=== PATIENT | male | born 1960 | race Caucasian/White ===

== ENCOUNTER 2017-01-25 15:24 | Inpatient (IN) | payer MEDICAID, OTHER ==
[~2017-01-25] VITALS: Ht 182.9 cm; Wt 83.9 kg
[2017-01-25] VITALS (14 sets, daily range): BP systolic 147–187; BP diastolic 105–152; PULSE 95–105; RESP 15–22; TEMP 98.9; Ht 182.9 cm; Wt 83.9 kg
[~2017-01-25 15:24] MED LIST: AMLO-218 PO; ASPI-781 PO; DOCU-144 PO; FER325 PO; HYDR-3504 PO; LISI-525 PO; METO-429 PO; POLY17PO6 PO
[2017-01-25] MEDS ORDERED: LABETALOL HCL 20MG INJ ONE ×2 (15:36→15:45)
[2017-01-25] MEDS ORDERED: DILTIAZEM 25 MG INJ ONE (15:36)
[2017-01-25] MEDS: LABETALOL HCL 20MG INJ IV PRN (15:40)
[2017-01-25 15:44] LABS: ADD SCAN DIFF NO
[2017-01-25 15:45] LABS: BASOPHILS % 0.3 % (0.0-2.0); EOSINOPHILS # 0.1 10^3/ul (0.0-0.5); EOSINOPHILS % 0.4 % (0.0-7.0); HEMATOCRIT 55.4 % (42.0-52.0); HEMOGLOBIN 19.3 g/dl (14.0-18.0); LYMPHOCYTES # 2.8 10^3/ul (0.8-2.9); LYMPHOCYTES % 22.6 % (15.0-51.0); MEAN CORPUSCULAR HEMOGLOBIN 31.7 pg (29.0-33.0); MEAN CORPUSCULAR HGB CONC 34.8 g/dl (32.0-37.0); MEAN CORPUSCULAR VOLUME 91.1 fl (82.0-101.0); MEAN PLATELET VOLUME 9.2 fl (7.4-10.4); MONOCYTE # 1.3 10^3/ul (0.3-0.9); MONOCYTES % 10.2 % (0.0-11.0); NEUTROPHIL # 8.1 10^3/ul (1.6-7.5); NEUTROPHILS % 66.2 % (39.0-77.0); PLATELET COUNT 230 10^3/UL (140-415); RED BLOOD COUNT 6.08 10^6/ul (4.70-6.10); RED CELL DISTRIBUTION WIDTH 13.3 % (11.5-14.5); WHITE BLOOD COUNT 12.3 10^3/ul (4.8-10.8)
--- NOTE | 2017-01-25 15:50 | ERA ---
ER Documentation Chief Complaint Date/Time DATE: 01/25/17 TIME: 15:45 Chief Complaint Complains of aloc per friend HPI Patient is a 56-year-old male who presents with gradual onset, constant, progressive right-sided weakness for 2 days. He reports that he had weakness to his right leg starting at the foot 2 days ago. He states that yesterday morning this extended to the entire right leg. She reports mild weakness to the right arm on awakening this morning, and not being able to lift his arm to gravity since 11 AM today. He reports mild shortness of breath, no chest pain. He denies palpitations, headache, vomiting. He denies visual disturbance. He denies change in urine output. The patient reports that he has been told he has high blood pressure since he was 19 years old, but has never taken medication for this. He does not take any medications including over-the- counter medications. ROS All systems reviewed and are negative except as per history of present illness. Medications Home Meds Discontinued Scripts Amlodipine Besylate* (Norvasc*) 10 Mg Tablet, 10 MG PO DAILY, #30 TAB Prov:JOANNA DANIELLE 04/27/14 Polyethylene Glycol* (Miralax*) 17 Gm/Pkt Liq, 17 GM PO DAILY for 30 Days Prov:JOANNA DANIELLE 04/27/14 Metoprolol Tartrate* (Lopressor*) 50 Mg Tab, 50 MG PO BID for 30 Days Prov:JOANNA DANIELLE 04/27/14 Lisinopril* (Zestril*) 20 Mg Tab, 20 MG PO BID for 30 Days Prov:JOANNA DANIELLE 04/27/14 Hydrocodone Bit-Acetaminophen (Hydrocodone-APAP) 1 Tab Tab, 1 TAB PO Q4H Y for PAIN, #60 Prov:JOANNA DANIELLE 04/27/14 Ferrous Sulfate* (Ferrous Sulfate*) 325 Mg Tabec, 325 MG PO BID for 30 Days Prov:JOANNA DANIELLE 04/27/14 Docusate Sodium* (Colace*) 100 Mg Cap, 100 MG PO BID, #60 Prov:JOANNA DANIELLE 04/27/14 Aspirin* (Ecotrin*) 325 Mg Tabec, 325 MG PO DAILY for 14 Days Prov:OJANNA DANIELLE 04/27/14 Allergies Allergies: Coded Allergies: No Known Allergy (Unverified , 01/25/17) PMhx/Soc Past medical history: Untreated hypertension Past surgical history: Denies Social history: Drinks alcohol 2-3 times per week, last alcohol 3 days ago. Denies tobacco or illicit drugs. History of Surgery: Yes (L wrist surgery s/p trauma 7 years ago) Anesthesia Reaction: No Hx Neurological Disorder: No Hx Respiratory Disorders: No Hx Cardiac Disorders: No Hx Psychiatric Problems: No Hx Miscellaneous Medical Probl: Yes (HTN, CML s/p blood marrow transplant in 99 , in remission) Hx Alcohol Use: No Hx Substance Use: No Hx Tobacco Use: No FmHx Family History: No coronary disease, No diabetes Physical Exam Vitals Vital Signs Date Time Temp Pulse Resp B/P Pulse Ox O2 Delivery O2 Flow Rate FiO2 01/25/17 18:17 98.9 96 15 180/125 98 Nasal Cannula 2.0 01/25/17 17:52 98.9 92 17 180/131 99 Nasal Cannula 2.0 01/25/17 17:00 98.4 97 16 195/125 99 Nasal Cannula 2.0 01/25/17 16:40 98.2 95 16 227/142 99 Nasal Cannula 2.0 01/25/17 15:45 Nasal Cannula 2 01/25/17 15:40 153 21 227/154 96 Nasal Cannula 2.0 01/25/17 15:34 164 21 263/189 96 Room Air 01/25/17 15:26 98.2 166 20 260/195 96 Physical Exam Const: Alert, no acute distress Head: Atraumatic Eyes: Normal Conjunctiva, no pallor, no icterus ENT: Normal External Ears, Nose and Mouth. Moist mucous membranes Neck: Full range of motion..~ No meningismus. No JVD, no carotid bruit Resp: Clear to auscultation bilaterally Cardio: Regular rhythm, severe tachycardia, no murmur Abd: Soft, non tender, non distended. Skin: No petechiae or rashes Back: No midline or flank tenderness Ext: No cyanosis, or edema Neur: Awake and alert, subtle right facial droop, other cranial nerves intact , 2 out of 5 strength in right upper extremity, 2 out of 5 strength in right lower extremity, sensation intact in 4 extremities. No speech or language deficit. Psych: Normal Mood and Affect Result Diagram: 01/25/17 1534 01/25/17 1534 Results 24 hrs Laboratory Tests Test 01/25/17 15:34 01/25/17 16:01 White Blood Count 12.310^3/ul Red Blood Count 6.0810^6/ul Hemoglobin 19.3g/dl Hematocrit 55.4% Mean Corpuscular Volume 91.1fl Mean Corpuscular Hemoglobin 31.7pg Mean Corpuscular Hemoglobin Concent 34.8g/dl Red Cell Distribution Width 13.3% Platelet Count 54103^3/UL Mean Platelet Volume 9.2fl Neutrophils % 66.2% Lymphocytes % 22.6% Monocytes % 10.2% Eosinophils % 0.4% Basophils % 0.3% Nucleated Red Blood Cells % 0.0/100WBC Neutrophils # 8.110^3/ul Lymphocytes # 2.810^3/ul Monocytes # 1.310^3/ul Eosinophils # 0.110^3/ul Basophils # 0.010^3/ul Nucleated Red Blood Cells # 0.010^3/ul Prothrombin Time 12.0Sec Prothrombin Time Ratio 0.9 INR International Normalized Ratio 0.89 Activated Partial Thromboplast Time 24.2Sec Sodium Level 145mmol/L Potassium Level 3.6mmol/L Chloride Level 101mmol/L Carbon Dioxide Level 23mmol/L Anion Gap 25 Blood Urea Nitrogen 30mg/dl Creatinine 2.03mg/dl Glucose Level 161mg/dl Hemoglobin A1c 5.2% Calcium Level 10.3mg/dl Total Bilirubin 1.7mg/dl Direct Bilirubin 0.00mg/dl Indirect Bilirubin 1.7mg/dl Aspartate Amino Transf (AST/SGOT) 50IU/L Alanine Aminotransferase (ALT/SGPT) 43IU/L Alkaline Phosphatase 108IU/L Troponin I 0.014ng/ml Total Protein 9.0g/dl Albumin 5.5g/dl Globulin 3.50g/dl Albumin/Globulin Ratio 1.57 Bedside Glucose 195mg/dL Current Medications Medications (Trade) Dose Ordered Sig/[place] Route PRN Reason Start Time Stop Time Status Last Admin Dose Admin Labetalol HCl (Labetalol) 20 mg Q20M PRN IV ELEVATED BLOOD PRESSURE 01/25/17 16:00 01/25/17 15:40 Labetalol HCl 20 mg 20 mg ONCE ONCE IV 01/25/17 16:30 01/25/17 16:31 DC 01/25/17 16:11 Nicardipine HCl (Cardene Iv) 200 ml @ 50 mls/hr TITRATE IV 01/25/17 16:30 01/25/17 16:37 Aspirin 162 mg 162 mg ONCE ONCE PO 01/25/17 16:30 01/25/17 16:31 DC 01/25/17 16:32 Sodium Chloride (NS) 1,000 ml @ 200 mls/hr Q5H IV 01/25/17 16:30 01/25/17 18:05 DC 01/25/17 16:32 IV Flush (NS 3 ml) 3 ml PER PROTOCOL IV 01/25/17 18:00 Ondansetron HCl (Zofran Inj) 4 mg Q6H PRN IV NAUSEA AND/OR VOMITING 01/25/17 18:00 Acetaminophen (Tylenol Tab) 650 mg Q6H PRN PO PAIN LEVEL 1-3 OR FEVER 01/25/17 18:00 Acetaminophen/ Hydrocodone Bitart ([place] (5/325)) 1 tab Q6H PRN PO MODERATE PAIN LEVEL 4-6 01/25/17 18:00 Morphine Sulfate (morphine) 2 mg Q4H PRN IV SEVERE PAIN LEVEL 7-10 01/25/17 18:00 Docusate Sodium (Colace) 100 mg Q12H PRN PO CONSTIPATION 01/25/17 18:00 Magnesium Hydroxide (Milk Of Mag) 30 ml DAILY PRN PO CONSTIPATION 01/25/17 18:00 Sodium Biphosphate/ Sodium Phosphate (Fleet Enema) 133 ml DAILY PRN RI CONSTIPATION 01/25/17 18:00 Famotidine (Pepcid Iv) 20 mg HS IV 01/25/17 21:00 Lorazepam 0.5 mg 0.5 mg Q6H PRN IV ANXIETY 01/25/17 18:00 Sodium Chloride (NS) 1,000 ml @ 100 mls/hr Q10H IV 01/25/17 17:45 01/25/17 18:27 Albuterol/ Ipratropium (Duoneb) 3 ml Q4H RESP THERAPY PRN HHN SHORTNESS OF BREATH 01/25/17 18:00 Hydralazine HCl (Apresoline) 10 mg Q6H PRN IV ELEVATED BLOOD PRESSURE 01/25/17 18:00 Nitroglycerin (Nitroglycerin (Sl Tab) 0.4 Mg) 1 tab Q5M PRN SL ANGINA 01/25/17 18:00 Aspirin 325 mg 325 mg DAILY PO 01/26/17 09:00 Nicardipine HCl/ Dextrose (Cardene Iv/D5W) 250 ml @ 50 mls/hr TITRATE IV 01/25/17 18:00 Procedures/MDM EKG read by me: Time 1532, rate 167 Rhythm: Sinus tachycardia Cliff: Left axis deviation Intervals: Normal ST-T waves: T-wave inversion in aVL only Ectopy: No Q-waves: No Impression: Left ventricular hypertrophy, sinus tachycardia EKG read by me: Time 1633, rate 96 Rhythm: Normal sinus Cliff: Left axis deviation Intervals: Normal ST-T waves: ST depression with T-wave inversion in lateral leads Ectopy: No Q-waves: No Impression: LVH with repolarization abnormality versus ischemia MDM: Patient is a 56-year-old male who presents with right sided arm and leg weakness over the last 2 days. The patient did state that his arm did not appear to be significantly weak this morning, but he does report having severe weakness for more than 4-1/2 hours prior to arrival. On ER arrival, the patient was found to have severe hypertension. He also was found to have severe tachycardia. He was given labetalol IV. Head CT did not demonstrate hemorrhage, and showed old lacunar infarcts. The patient was therefore given aspirin, and additional doses of labetalol to control blood pressure. When a second bolus of labetalol was not adequate, he was started on a Cardene drip with a targeted blood pressure reduction of 20-30%. A CTA could not be performed due to the patient's renal insufficiency, which is likely due to long- standing uncontrolled hypertension. An MRI and MRA were ordered, but required a team to be called into the hospital. The patient's symptoms are not suggestive of a large territory infarct, as the patient has pure motor symptoms and no significant speech or language deficits. Patient was not a TPA candidate due to more than 4-1/2 hours of symptoms. The patient will be admitted to the intensive care unit for further stroke workup and blood pressure control. He was noted to have polycythemia. He does not have a reported smoking history, and does not have significant findings of dehydration , so the etiology of this finding is unclear at this time. The patient will be admitted by Dr. Corey. Critical Care Time: 45 minutes Treatments/Evaluations: Close monitoring and treatment of unstable vital signs, cardiorespiratory, and neurologic status, while maintaining tight balance of fluid, respiratory, and cardiac interventions. This time includes discussing the case with the patient. This time does not include all procedures stated elsewhere in this record. This time also includes reviewing old records, labs and radiological studies. This time includes examining and re-examining the patient. Additionally, this time also includes arranging care with admitting physician. Departure Diagnosis: Primary Impression: Acute ischemic stroke Additional Impressions: Hypertensive emergency Renal insufficiency Polycythemia Condition: DONNY Gutierrez MD Jan 25, 2017 15:50
--- NOTE | 2017-01-25 15:59 | RADRPT ---
PROCEDURE: XR Chest. CLINICAL INDICATION: chest pain, CVA TECHNIQUE: Single frontal view of the chest was obtained COMPARISON: 04/24/2014 FINDINGS: The heart and mediastinum are within normal limits. The lungs are clear. There is no pleural effusion or pneumothorax. RPTAT: AA IMPRESSION: No acute disease. .Jeff Tay MD, MD Date Time Electronically viewed and signed by .Jeff Tay MD, MD on 01/25/2017 15:59 .S/
[2017-01-25 16:00] LABS: INR 0.89; PT RATIO 0.9
[2017-01-25 16:01] LABS: PARTIAL THROMBOPLASTIN TIME 24.2 Sec (25.0-35.0)
--- NOTE | 2017-01-25 16:06 | RADRPT ---
PROCEDURE: Noncontrast CT Head. CLINICAL INDICATION: Code stroke. Acute neurologic deficit. TECHNIQUE: Noncontrast CT of the head was obtained. The administered radiation dose was CTDI vol = 45.01 mGy, DLP = 720.23 mGy-cm. One or more of the following dose reduction techniques were used: Au tomated exposure control, Adjustment of the mA and/or kV according to patient size, or Use of iterat devonte reconstruction technique. COMPARISON: There are no similar studies submitted for comparison. FINDINGS: There is mild to moderate generalized cerebral volume loss. There is mild periventricular hypoattenu ation suggesting chronic microvascular ischemic changes. There are minimal vascular calcifications within the intracranial carotid arteries. There are chronic bilateral basal ganglia and left periventricular burris radiata lacunar infarction s. There is a chronic right thalamic lacunar infarction. There is no loss of stevens-white differentiation to suggest acute territorial infarction. There is no acute intracranial hemorrhage or extra-axial fluid collection. There is no mass effect. No midline shift is identified. The orbits are within normal limits. The paranasal sinuses are well aerated. No destructive osseous lesion is identified. IMPRESSION: 1. No loss of stevens-white differentiation to suggest acute territorial infarction. Consider CTA of t he head/neck or noncontrast MRI of the brain as clinically warranted. 2. No acute intracranial hemorrhage or extra-axial fluid collection. 3. Mild generalized cerebral volume loss. 4. Mild chronic microvascular ischemic changes. 5. Chronic bilateral basal ganglia, left burris radiata, and right thalamic lacunar infarctions. Further findings as detailed above. These findings were discussed with Dr. James Hyman at 04:03 p.m. on January 25, 2017. RPTAT: HVF .Zaheer Stevens MD, Date Time Electronically viewed and signed by .Zaheer Stevens MD, on 01/25/2017 16:06 .F/
[2017-01-25] MEDS ORDERED: LABETALOL HCL 20MG INJ IV ONE (16:30)
[2017-01-25] MEDS ORDERED: SOD CHLORIDE 0.9% 1,000 ML IV SCH (16:30)
[2017-01-25] MEDS ORDERED: ASPIRIN 81 MG TAB PO ONE (16:30)
[2017-01-25 16:32] LABS: ALBUMIN 5.5 g/dl (3.3-4.9); ALBUMIN/GLOBULIN RATIO 1.57; BILIRUBIN,INDIRECT 1.7 mg/dl (0-1.1); BILIRUBIN,TOTAL 1.7 mg/dl (0.2-1.3); CALCIUM 10.3 mg/dl (8.4-10.2); CREATININE 2.03 mg/dl (0.61-1.24); POTASSIUM 3.6 mmol/L (3.5-5.1)
[2017-01-25] MEDS: niCARdipine-D5W 0.1MG/ML DRIP 200 ML IV SCH ×2 (16:37→22:18)
[2017-01-25 16:44] LABS: TROPONIN-I 0.014 ng/ml (0.00-0.12)
[2017-01-25] MEDS ORDERED: ONDANSETRON 4 MG INJ IV PRN (18:00)
[2017-01-25] MEDS ORDERED: ACETAMINOPHEN 325 MG TAB PO PRN (18:00)
[2017-01-25] MEDS ORDERED: NITROGLYCERIN (SL) 0.4 MG TAB SL PRN (18:00)
[2017-01-25] MEDS ORDERED: HYDROCODONE/APAP (5/325) TAB PO PRN (18:00)
[2017-01-25] MEDS ORDERED: DOCUSATE SODIUM 100 MG CAP PO PRN (18:00)
[2017-01-25] MEDS ORDERED: LORAZEPAM 2 MG INJ IV PRN (18:00)
[2017-01-25] MEDS ORDERED: MAGNESIUM HYDROXIDE 30ML CUP PO PRN (18:00)
[2017-01-25] MEDS ORDERED: morphine 2 MG INJ IV PRN (18:00)
[2017-01-25] MEDS ORDERED: ALBUTEROL/IPRATROPIUM (NEB) 3 ML AMP HHN PRN (18:00)
[2017-01-25] MEDS ORDERED: hydrALAzine 20 MG INJ IV PRN (18:00)
[2017-01-25] MEDS ORDERED: NACL 0.9% 3 ML SYG IV SCH (18:00)
[2017-01-25] MEDS ORDERED: NA PHOSPHATE/BIPHOS 133 ML ENEMA PR PRN (18:00)
[2017-01-25] MEDS: SOD CHLORIDE 0.9% 1,000 ML IV SCH ×2 (18:27→23:42)
[2017-01-25 19:03] LABS: INR 0.91; PROTIME 12.2 Sec (12.2-14.2)
[2017-01-25 19:04] LABS: PARTIAL THROMBOPLASTIN TIME 24.7 Sec (25.0-35.0)
[2017-01-25 19:20] LABS: TROPONIN-I 0.022 ng/ml (0.00-0.12)
[2017-01-25 19:28] LABS: CK-MB 6.98 ng/ml (0.0-2.4)
--- NOTE | 2017-01-25 20:01 | RADRPT ---
PROCEDURE: MR Angiogram of the brain. CLINICAL INDICATION: Right arm weakness, stroke TECHNIQUE: 3D [id number] MR angiogram was performed without contrast. Multiplanar and 3-D rec onstructions were performed. COMPARISON: No prior studies are available for comparison. FINDINGS: The right petrous internal carotid artery is normally patent. The right cavernous, and supraclinoid internal carotid artery segments are unremarkable, without stenosis or occlusion. The right anteri or and middle cerebral arteries appear normal. The left petrous internal carotid artery is normally patent. The left cavernous, and supraclinoid i nternal carotid artery segments are unremarkable, without focal stenosis or occlusion. The left ant erior and middle cerebral arteries appear normal. The anterior communicating artery is normally patent. Bilateral posterior communicating arteries ar e visualized and unremarkable. There are no anterior circulation aneurysms or vascular malformation s. The bilateral vertebral arteries appear normally patent. The basilar artery appears normal, without stenosis. . The posterior cerebral arteries appear normally patent. The superior cerebellar arter ies are unremarkable. There are no posterior circulation aneurysms or vascular malformations. IMPRESSION: 1. Unremarkable MR angiogram of the brain. No significant stenosis or occlusion is identified. RPTAT: HBST .Jaime Fuentes MD, MD Date Time Electronically viewed and signed by .Jaime Fuentes MD, on 01/25/2017 20:01 .T/
--- NOTE | 2017-01-25 20:05 | HP ---
DATE OF ADMISSION: 01/25/2017 CHIEF COMPLAINT: Altered level of consciousness. HISTORY OF PRESENT ILLNESS: A 56-year-old male with past medical history of essential hypertension, looks like uncontrolled, noncompliant with medicines since age 19, who has been getting progressive right-sided weakness over the last 2 days. He says that he noticed some weakness in his right leg starting about 2 days ago and he noticed that it extended more throughout his right entire leg and a lso noticed weakness in his right upper extremity as well. Since early today, he had some mild shor tness breath symptoms, but no palpitations, no chest pain, no fevers or chills, no nausea, vomiting, no upper or lower GI bleeding, no vision changes, no dysuria. When he came into the ER today, he h ad significantly elevated blood pressure. Systolic blood pressure was in the 260 range and diastoli c was in the 195 range and he was given labetalol and started on a Cardene drip. He has also elevat ed creatinine around the 2.0 range. We do not know his baseline. His white count was also elevated at 12. Head CT showed just old lacunar infarcts. That was done. MRI is pending. PAST MEDICAL HISTORY: CML, status post bone marrow transplant in 1998. Past medical history as sta mary above. ALLERGIES: NO KNOWN DRUG ALLERGIES. HOME MEDICATIONS: Unknown, although the patient says he is not taking any blood pressure medicines presently. PAST SURGICAL HISTORY: He has had wrist surgery in the past. SOCIAL HISTORY: He drinks alcohol about 3 times a week. He has been doing that for many, many year s. Denies any IV drug abuse or smoking history. FAMILY HISTORY: Noncontributory. PHYSICAL EXAMINATION: VITAL SIGNS: Today, T-max 98.9, pulse is 166 to 92, respirations 21 to 15, blood pressure again is 180 to 260 systolic over 195 to 125 diastolic, satting at 98% on 2 liters nasal cannula. Again, pre sently he is on Cardene drip and the systolic is 180/125. The MAP is around 140. GENERAL: The patient is lying in bed, answering questions appropriately, slightly slurred speech no mary, but otherwise alert. HEENT: Pupils equal, round, react to light. Extraocular muscles are intact. There is a subtle rig ht facial droop. NECK: Supple. No thyromegaly. LUNGS: Clear to auscultation bilaterally. CARDIOVASCULAR: S1, S2 heard. No rubs or gallops. ABDOMEN: Soft, nontender, nondistended. Normal bowel sounds. No rebound or guarding. MUSCULOSKELETAL: No lower extremity edema bilaterally. NEUROLOGIC: Again, patient is awake and alert. There is a subtle right facial droop noted. He has about 2/5 strength in the right upper extremity, 2/5 strength in right lower extremity, 5/5 strengt h left upper and left lower extremities as well. Gait was not assessed. The rest of the cranial ne rves appear to be intact. LABORATORIES: WBC 12.3, hemoglobin 19.3, hematocrit 55.4, platelets 230. Sodium 145, potassium 3.6 , chloride 101, CO2 of 23, BUN 30, creatinine 2.03, glucose 161. The coags appear to be normal. Th e chest x-ray showed no acute disease. A head CT showed no loss of stevens-white differentiation to martinez ggest any acute territorial infarct. No acute intracranial hemorrhage or extraaxial fluid collectio n. There is mild generalized cerebral volume loss, ____ chronic microvascular ischemic changes, chr onic bilateral basal ganglia, and left burris radiata and right thalamic lacunar infarcts, again chr onic. ASSESSMENT AND PLAN: A 56-year-old male coming in with signs of right-sided weakness, getting progr essively worse over the last 48 hours, and some significantly elevated blood pressure, possible hype rtensive emergency and renal insufficiency, rule out stroke. 1. Right-sided weakness with altered level of consciousness. Again, patient is more alert now. Sy mptoms could be related to transient ischemic attack versus stroke. Suspect possible stroke. Head CT was negative. Will follow up MRI and MRA of the brain. Do neuro checks. Check TSH, A1c, and li pid panel. Get PT, OT, and speech evaluations. Put him on high dose aspirin. Check a 2D echocardi ogram and consider carotid Doppler studies as well. We will get a neurology consult as well. 2. Hypertensive emergency. Although the patient does not have any visual changes, there appear to be no signs of any end organ damage, but his systolic blood pressure was severely high. We are tho g to try to control his blood pressure with Cardene drip. We do not want to lower it any more than 30% in the first 24 hours, so will try to keep the systolic greater than 200 or the MAP around 140 f or now. 3. Gastrointestinal prophylaxis. We will put him on H2 dorothea. 4. Deep venous thrombosis prophylaxis. He will be on sequential compression devices as well. Dictated By: SIXTO DIAZ Conf#: [id number] DID#: [id number]
--- NOTE | 2017-01-25 20:09 | RADRPT ---
PROCEDURE: MR Brain without contrast. CLINICAL INDICATION: Focal neurologic deficit, stroke. Right arm weakness TECHNIQUE: An MRI of the brain was performed utilizing the following sequences: Axial T1, axial T 2, axial FLAIR, coronal gradient echo, sagittal T1 FLAIR, diffusion weighted imaging, and ADC map. COMPARISON: No prior studies are available for comparison. FINDINGS: There is moderate diffuse cerebral volume loss. The ventricles are symmetric and normal in configur ation. There is no mass, mass effect, or midline shift. There is no abnormal intra-axial or extra- axial fluid collection. There is no intracranial hemorrhage. There is left thalamic diffusion res triction, consistent with acute infarct. There are old infarcts in the left basal ganglia, left cor pus callosum, right anastacia, and right frontal periventricular white matter. There is an old right cere bellar lacunar infarct. There are scattered areas of high T2 / FLAIR signal in the periventricular white matter, consistent with moderate small vessel ischemic changes. The sella and suprasellar cistern appear within normal limits. The brainstem and posterior fossa ar e normal in configuration. The orbital soft tissue contents are unremarkable. Paranasal sinuses are clear. IMPRESSION: 1. Moderate diffuse cerebral volume loss. Moderate small vessel ischemic changes. 2. Acute left thalamic infarct. 3. Old infarcts in the left basal ganglia, corpus callosum, right anastacia, right cerebellum, and right frontal periventricular white matter. 4. No mass effect or acute intracranial bleed. RPTAT: HBST .Jaime Fuentes MD, Date Time Electronically viewed and signed by .Jaime Fuentes MD, MD on 01/25/2017 20:09 .T/
--- NOTE | 2017-01-25 20:19 | RADRPT ---
PROCEDURE: MRA Neck. CLINICAL INDICATION: Weakness, right arm, stroke TECHNIQUE: 2D TOF SPGR and contrast enhanced TRICKS subtraction MR Angiography of the neck was per formed. 20 ml of intravenous Magnevist was administered. 3-D re-formations were performed. COMPARISON: No prior studies are available for comparison. FINDINGS: The examination is limited by noncontrast technique The right common carotid artery is normally patent. The carotid bulb appears normal. The right int ernal carotid artery appears unremarkable, without focal stenosis or dilatation. The left common carotid artery is normally patent. There is possible moderate stenosis of the proxi mal left internal carotid artery. The left internal carotid artery appears unremarkable, without foc al stenosis or dilatation. The bilateral vertebral arteries appear to be normally patent, with poor visualization of horizontal segments due to 2D [id number] technique.. The vertebral artery origins appear within normal li mits.. IMPRESSION: 1. Limited examination due to noncontrast technique. There could be a moderate stenosis of the prox imal left internal carotid artery, versus artifact. Ultrasound correlation is suggested. 2. Otherwise normal appearing patency through the visualized cervical carotid and vertebral arteria l vasculature. RPTAT: HBST .Jaime Fuentes MD, MD Date Time Electronically viewed and signed by .Jaime Fuentes MD, on 01/25/2017 20:19 .T/
--- NOTE | 2017-01-25 20:27 | RADRPT ---
PROCEDURE: US Carotids. CLINICAL INDICATION: bruit , dizziness TECHNIQUE: Multiple sonographic of the carotid bifurcation region and vertebral arteries were obta ined utilizing stevens scale, duplex and color-flow imaging. The images were reviewed on a PACS worksta tion. COMPARISON: No prior studies are available for comparison. FINDINGS: Evaluation of the right carotid bifurcation region reveals mild calcific atherosclerotic disease. Evaluation of the left carotid bifurcation region reveals mild calcific atherosclerotic disease. . There is a 34% stenosis in the left carotid bulb. There is antegrade flow within the vertebral arteries bilaterally. RIGHT CAROTID MEASUREMENTS: Common Carotid Bdysow88 (cm/sec) Internal Carotid Artery - isqygztf03.5 (cm/sec) Internal Carotid Artery - mid55.5 (cm/sec) Internal Carotid Artery - .9 (cm/sec) Internal Carotid/Common Carotid0.87 LEFT CAROTID MEASUREMENTS: Common Carotid Tfhoyw61.9 (cm/sec) Internal Carotid Artery - rzmsubjc59.5 (cm/sec) Internal Carotid Artery - mid34.5 (cm/sec) Internal Carotid Artery - vlktpo62.7 (cm/sec) Internal Carotid/Common Carotid0.71 RPTAT: AA IMPRESSION: No evidence for hemodynamically significant stenosis in the bilateral internal carotid arteries - va lidated velocity measurements with angiographic measurements, velocity criteria are extrapolated fro m diameter data as defined by the Society of Radiologists in Ultrasound Consensus Conference Radiolo gy 2003; 229;340-346. This study does indirectly reference the measurement of the distal ICA diamet er as the denominator for stenosis measurement. Normal antegrade flow in the vertebral arteries bilaterally. .Jeff Tay MD, Date Time Electronically viewed and signed by .Jeff Tay MD, MD on 01/25/2017 20:27 .S/
[2017-01-25] MEDS: FAMOTIDINE 20 MG INJ IV SCH (21:44)
[2017-01-26] VITALS (86 sets, daily range): BP systolic 99–211; BP diastolic 65–168; PULSE 81–118; RESP 11–35
[2017-01-26 00:23] LABS: TROPONIN-I 0.022 ng/ml (0.00-0.12)
[2017-01-26 00:24] LABS: CK-MB 6.54 ng/ml (0.0-2.4)
[2017-01-26 05:23] LABS: ADD UMIC YES; UR BILIRUBIN (Dip) NEGATIVE (NEGATIVE); UR BLOOD (Dip) TRACE (NEGATIVE); UR CLARITY CLEAR (CLEAR); UR COLOR YELLOW (YELLOW); UR GLUCOSE (Dip) NEGATIVE (NEGATIVE); UR KETONES (Dip) TRACE (NEGATIVE); UR LEUKOCYTE ESTERASE (Dip) NEGATIVE (NEGATIVE); UR NITRITE (Dip) NEGATIVE (NEGATIVE); UR TOTAL PROTEIN (Dip) 1+ (NEGATIVE); UR UROBILINOGEN (Dip) 0.2 E.U./dL (0.1-1.0)
[2017-01-26 05:31] LABS: URINE RBCS 0-2 /HPF (0)
[2017-01-26 05:32] LABS: UR SQUAMOUS EPITHELIAL CELL MODERATE
[2017-01-26 05:33] LABS: UR BACTERIA OCCASIONAL
[2017-01-26 05:39] LABS: CANNABINOIDS Positive (NEGATIVE)
[2017-01-26 05:58] LABS: BARBITURATES Negative (NEGATIVE); BENZODIAZEPINES Negative (NEGATIVE); COCAINE Negative (NEGATIVE); OPIATES Negative (NEGATIVE)
[2017-01-26] MEDS: niCARdipine-D5W 0.1MG/ML DRIP 200 ML IV SCH (06:27)
[2017-01-26 06:42] LABS: ADD SCAN DIFF NO
[2017-01-26 06:58] LABS: BASOPHIL # 0.1 10^3/ul (0.0-0.1); BASOPHILS % 0.8 % (0.0-2.0); EOSINOPHILS # 0.1 10^3/ul (0.0-0.5); EOSINOPHILS % 1.5 % (0.0-7.0); HEMATOCRIT 49.6 % (42.0-52.0); HEMOGLOBIN 17.1 g/dl (14.0-18.0); LYMPHOCYTES # 2.4 10^3/ul (0.8-2.9); LYMPHOCYTES % 25.8 % (15.0-51.0); MEAN CORPUSCULAR HEMOGLOBIN 31.3 pg (29.0-33.0); MEAN CORPUSCULAR HGB CONC 34.5 g/dl (32.0-37.0); MEAN CORPUSCULAR VOLUME 90.7 fl (82.0-101.0); MEAN PLATELET VOLUME 9.4 fl (7.4-10.4); MONOCYTE # 1.1 10^3/ul (0.3-0.9); MONOCYTES % 11.9 % (0.0-11.0); NEUTROPHIL # 5.6 10^3/ul (1.6-7.5); NEUTROPHILS % 59.7 % (39.0-77.0); PLATELET COUNT 168 10^3/UL (140-415); RED BLOOD COUNT 5.47 10^6/ul (4.70-6.10); RED CELL DISTRIBUTION WIDTH 13.2 % (11.5-14.5); WHITE BLOOD COUNT 9.3 10^3/ul (4.8-10.8)
[2017-01-26 07:23] LABS: CHOL/HDL RATIO 5.7 RATIO
[2017-01-26 07:30] LABS: CALCIUM 9.7 mg/dl (8.4-10.2); CREATININE 1.21 mg/dl (0.61-1.24); MAGNESIUM 2.2 mg/dl (1.7-2.5); PHOSPHORUS 3.4 mg/dl (2.5-4.9); POTASSIUM 3.6 mmol/L (3.5-5.1)
[2017-01-26 07:47] LABS: THYROID STIMULATING HORMONE 0.924 MIU/L (0.465-4.680)
[2017-01-26] MEDS: ASPIRIN (EC) 325 MG TAB PO SCH (08:54)
[2017-01-26] MEDS ORDERED: niCARdipine-D5W 0.1MG/ML DRIP 200 ML IV SCH (11:30)
[2017-01-26] MEDS: SOD CHLORIDE 0.9% 1,000 ML IV SCH ×2 (11:33→21:37)
--- NOTE | 2017-01-26 12:08 | CONS ---
Date/Time of Note Date/Time of Note DATE: 01/26/17 TIME: 12:01 Assessment/Plan Assessment/Plan Chief Complaint/Hosp Course 56 year old male with history of uncontrolled hypertension previous smoker admitted with acute left thalamic infarct. Recommendations: titrate cardene drip for goal SBP<180 will eventually require tighter control and eventual goal of SBP<130/80 for lacunar infarctions continue aspirin HBA1C 5.1% at target LDL: 160 will require high dose statin lipitor 80 mg qhs ECHO with bubble study PT/OT/Speech will follow Problems: Consultation Date/Type/Reason Admit Date/Time Jan 25, 2017 at 18:02 Date of Consultation: Jan 26, 2017 Type of Consultation: Neurology Reason for Consultation evaluation for CVA Referring Provider: SIXTO SHAH Hx of Present Illness 56 year old male with essential hypertension non-compliant with medications since age 19 prior hx of smoking presenting with progressively worsening right sided weakness for the past 2 days. He initially noted symptoms on Thursday beginning in right leg and progressed to involve right arm. On admission to the ER SBP elevated 260 range started on cardene drip. CTH showed old lacunar infarcts. MRI Brain shows multiple old lacunar infarcts, left basal ganglia, corpus callosum, anastacia right cerebellum with acute left lateral thalamic infarct. He remains in ICU for BP management. He was evaluated by speech and put on mechanical soft diet. right sided weakness face arm leg Social History Smoking Status: Never smoker Exam/Review of Systems Vital Signs Vitals Vital Signs Date Time Temp Pulse Resp B/P Pulse Ox O2 Delivery O2 Flow Rate FiO2 01/26/17 08:00 103 01/26/17 08:00 98.0 14 193/119 99 Nasal Cannula 2.0 Intake and Output 01/25/17 01/25/17 01/26/17 15:00 23:00 07:00 Intake Total 1620 ml 935 ml Output Total 425 ml Balance 1620 ml 510 ml Exam awake and alert oriented to self hospital date appears disheveled, mood affect intact follows commands well no aphasia or neglect CN: ROSSI, VFF EOMI no nystagmus v1-3 intact right lower facial droop palate upgoing uvula midline scm/trap intact tongue midline Motor: right arm 0/5 flaccid paralysis, right leg can briefly lift anti-gravity few seconds drifts to bed Sensory intact to right side Coordination unable to perform on right Results Result Diagram: 01/26/17 0522 01/26/17 0522 Results 24 hrs Laboratory Tests Test 01/25/17 15:34 01/25/17 16:01 01/25/17 18:40 01/25/17 23:30 White Blood Count 12.3 H Red Blood Count 6.08 Hemoglobin 19.3 H Hematocrit 55.4 H Mean Corpuscular Volume 91.1 Mean Corpuscular Hemoglobin 31.7 Mean Corpuscular Hemoglobin Concent 34.8 Red Cell Distribution Width 13.3 Platelet Count 230 Mean Platelet Volume 9.2 Neutrophils % 66.2 Lymphocytes % 22.6 Monocytes % 10.2 Eosinophils % 0.4 Basophils % 0.3 Nucleated Red Blood Cells % 0.0 Neutrophils # 8.1 H Lymphocytes # 2.8 Monocytes # 1.3 H Eosinophils # 0.1 Basophils # 0.0 Nucleated Red Blood Cells # 0.0 Prothrombin Time 12.0 L 12.2 Prothrombin Time Ratio 0.9 1.0 INR International Normalized Ratio 0.89 0.91 Activated Partial Thromboplast Time 24.2 L 24.7 L Sodium Level 145 H Potassium Level 3.6 Chloride Level 101 Carbon Dioxide Level 23 Anion Gap 25 H Blood Urea Nitrogen 30 H Creatinine 2.03 H Glucose Level 161 Hemoglobin A1c 5.2 Calcium Level 10.3 H Total Bilirubin 1.7 H Direct Bilirubin 0.00 Indirect Bilirubin 1.7 H Aspartate Amino Transf (AST/SGOT) 50 H Alanine Aminotransferase (ALT/SGPT) 43 Alkaline Phosphatase 108 Troponin I 0.014 0.022 0.022 Total Protein 9.0 H Albumin 5.5 H Globulin 3.50 H Albumin/Globulin Ratio 1.57 Bedside Glucose 195 Creatine Kinase 300 H 296 H Creatine Kinase Index 2.3 2.2 Creatinine Kinase MB (Mass) 6.98 H 6.54 H Free Thyroxine 1.07 Test 01/26/17 03:00 01/26/17 05:22 Urine Color YELLOW Urine Clarity CLEAR Urine pH 5.5 Urine Specific [place] >=1.030 H Urine Ketones TRACE Urine Nitrite NEGATIVE Urine Bilirubin NEGATIVE Urine Urobilinogen 0.2 E.U./dL Urine Leukocyte Esterase NEGATIVE Urine Microscopic RBC 0-2 Urine Microscopic WBC 2-5 Urine Squamous Epithelial Cells MODERATE Urine Bacteria OCCASIONAL Urine Hyaline Casts FEW Urine Hemoglobin TRACE Urine Glucose NEGATIVE Urine Total Protein 1+ H Urine Opiates Screen Negative Urine Barbiturates Negative Urine Amphetamines Screen Negative Urine Benzodiazepines Screen Negative Urine Cocaine Screen Negative Urine Cannabinoids Positive White Blood Count 9.3 # Red Blood Count 5.47 Hemoglobin 17.1 Hematocrit 49.6 Mean Corpuscular Volume 90.7 Mean Corpuscular Hemoglobin 31.3 Mean Corpuscular Hemoglobin Concent 34.5 Red Cell Distribution Width 13.2 Platelet Count 168 # Mean Platelet Volume 9.4 Neutrophils % 59.7 Lymphocytes % 25.8 Monocytes % 11.9 H Eosinophils % 1.5 Basophils % 0.8 Nucleated Red Blood Cells % 0.0 Neutrophils # 5.6 Lymphocytes # 2.4 Monocytes # 1.1 H Eosinophils # 0.1 Basophils # 0.1 Nucleated Red Blood Cells # 0.0 Sodium Level 147 H Potassium Level 3.6 Chloride Level 110 Carbon Dioxide Level 23 Anion Gap 18 #H Blood Urea Nitrogen 28 H Creatinine 1.21 Glucose Level 94 # Hemoglobin A1c 5.1 Calcium Level 9.7 Phosphorus Level 3.4 Magnesium Level 2.2 Triglycerides Level 152 H Cholesterol Level 230 H LDL Cholesterol, Calculated 160 HDL Cholesterol 40 Cholesterol/HDL Ratio 5.7 Thyroid Stimulating Hormone (TSH) 0.924 Medications Medications Current Medications Labetalol HCl (Labetalol) 20 mg Q20M PRN IV ELEVATED BLOOD PRESSURE Last administered on 01/25/17t 15:40; Admin Dose 20 MG; Start 01/25/17 at 16:00 Ondansetron HCl (Zofran Inj) 4 mg Q6H PRN IV NAUSEA AND/OR VOMITING; Start 07/03 at 18:00 Acetaminophen (Tylenol Tab) 650 mg Q6H PRN PO PAIN LEVEL 1-3 OR FEVER; Start at 18:00 Acetaminophen/ Hydrocodone Bitart ([place] (5/325)) 1 tab Q6H PRN PO MODERATE PAIN LEVEL 4-6; Start 01/25/17 at 18:00 Morphine Sulfate (morphine) 2 mg Q4H PRN IV SEVERE PAIN LEVEL 7-10; Start 01/25 at 18:00 Docusate Sodium (Colace) 100 mg Q12H PRN PO CONSTIPATION; Start 01/25/17 at 18: 00 Magnesium Hydroxide (Milk Of Mag) 30 ml DAILY PRN PO CONSTIPATION; Start at 18:00 Sodium Biphosphate/ Sodium Phosphate (Fleet Enema) 133 ml DAILY PRN [place] CONSTIPATION; Start 01/25/17 at 18:00 Famotidine (Pepcid Iv) 20 mg HS IV Last administered on 01/25/17 21:44; Admin Dose 20 MG; Start 01/25/17 at 21:00 Lorazepam 0.5 mg 0.5 mg Q6H PRN IV ANXIETY; Start 01/25/17 at 18:00 Sodium Chloride (NS) 1,000 ml @ 100 mls/hr Q10H IV Last administered on 11:33; Admin Dose 100 MLS/HR; Start 01/25/17 at 17:45 Hydralazine HCl (Apresoline) 10 mg Q6H PRN IV ELEVATED BLOOD PRESSURE; Start at 18:00 Nitroglycerin (Nitroglycerin (Sl Tab) 0.4 Mg) 1 tab Q5M PRN SL ANGINA; Start at 18:00 Aspirin (Ecotrin) 325 mg DAILY PO Last administered on 01/26/17 08:54; Admin Dose 325 MG; Start 01/26/17 at 09:00 Atorvastatin Calcium 80 mg 80 mg HS PO ; Start 01/26/17 at 21:00 Nicardipine HCl/ Dextrose (Cardene Iv/D5W) 250 ml @ 50 mls/hr TITRATE IV ; Start 01/26/17 at 11:30 XIOMARA CLEMENTE MD Jan 26, 2017 12:08
--- NOTE | 2017-01-26 15:32 | PN ---
Date/Time of Note Date/Time of Note DATE: 01/26/17 TIME: 15:25 Assessment/Plan VTE Prophylaxis VTE Prophylaxis Intervention: SCD's Lines/Catheters [facility] Peripheral IV Urinary Cath still in place: No Assessment/Plan Chief Complaint/Hosp Course ASSESSMENT AND PLAN: 1. Acute CVA MRI of the brain demonstrated acute left thalamic infarct. Continue aspirin and statin Continue to monitor patient's blood pressure and treat accordingly as per CVA protocol Obtain transesophageal 2D echocardiogram with bubble study 2. Hypertensive emergency. Continue Cardene drip to keep blood pressure below 170 and above 140. Start the patient on low dose of Coreg and continue to observe 3. Dyslipidemia. Continue statin 4. Gastrointestinal prophylaxis. We will put him on H2 dorothea. 5. Deep venous thrombosis prophylaxis. He will be on sequential compression devices as well. Problems: Subjective 24 Hr Interval Summary Free Text/Dictation Patient denies of any chest pain or shortness of breath No nausea vomiting diarrhea Able to tolerate oral intake Complains of having bilateral upper extremity weakness Exam/Review of Systems Vital Signs Vitals Vital Signs Date Time Temp Pulse Resp B/P Pulse Ox O2 Delivery O2 Flow Rate FiO2 01/26/17 12:00 99.1 93 16 186/108 97 Nasal Cannula 2.0 Intake and Output 01/25/17 01/25/17 01/26/17 15:00 23:00 07:00 Intake Total 1620 ml 935 ml Output Total 425 ml Balance 1620 ml 510 ml Exam General: The patient is well-developed, Not in acute distress. HEENT: Atraumatic, normocephalic. The pupils are equal and round . Neck: Supple with full range of motion. Chest: Normal expansion of the thorax during inspiration Lungs: Clear to auscultation bilaterally Heart: Normal S1-S2, Regular rhythm and rate. Abdomen: Soft , nontender, nondistended , bowel sounds are present. Extremities: 3/5 strength bilateral upper extremity, no edema no cyanosis Neurologic: The patient is awake, alert Results Result Diagram: 01/26/1752101/26/17 05 Results 24 hrs Laboratory Tests Test 01/25/17 15:34 01/25/17 16:01 01/25/17 18:40 01/25/17 23:30 White Blood Count 12.3 H Red Blood Count 6.08 Hemoglobin 19.3 H Hematocrit 55.4 H Mean Corpuscular Volume 91.1 Mean Corpuscular Hemoglobin 31.7 Mean Corpuscular Hemoglobin Concent 34.8 Red Cell Distribution Width 13.3 Platelet Count 230 Mean Platelet Volume 9.2 Neutrophils % 66.2 Lymphocytes % 22.6 Monocytes % 10.2 Eosinophils % 0.4 Basophils % 0.3 Nucleated Red Blood Cells % 0.0 Neutrophils # 8.1 H Lymphocytes # 2.8 Monocytes # 1.3 H Eosinophils # 0.1 Basophils # 0.0 Nucleated Red Blood Cells # 0.0 Prothrombin Time 12.0 L 12.2 Prothrombin Time Ratio 0.9 1.0 INR International Normalized Ratio 0.89 0.91 Activated Partial Thromboplast Time 24.2 L 24.7 L Sodium Level 145 H Potassium Level 3.6 Chloride Level 101 Carbon Dioxide Level 23 Anion Gap 25 H Blood Urea Nitrogen 30 H Creatinine 2.03 H Glucose Level 161 Hemoglobin A1c 5.2 Calcium Level 10.3 H Total Bilirubin 1.7 H Direct Bilirubin 0.00 Indirect Bilirubin 1.7 H Aspartate Amino Transf (AST/SGOT) 50 H Alanine Aminotransferase (ALT/SGPT) 43 Alkaline Phosphatase 108 Troponin I 0.014 0.022 0.022 Total Protein 9.0 H Albumin 5.5 H Globulin 3.50 H Albumin/Globulin Ratio 1.57 Bedside Glucose 195 Creatine Kinase 300 H 296 H Creatine Kinase Index 2.3 2.2 Creatinine Kinase MB (Mass) 6.98 H 6.54 H Free Thyroxine 1.07 Test 01/26/17 03:00 01/26/17 05:22 Urine Color YELLOW Urine Clarity CLEAR Urine pH 5.5 Urine Specific [place] >=1.030 H Urine Ketones TRACE Urine Nitrite NEGATIVE Urine Bilirubin NEGATIVE Urine Urobilinogen 0.2 E.U./dL Urine Leukocyte Esterase NEGATIVE Urine Microscopic RBC 0-2 Urine Microscopic WBC 2-5 Urine Squamous Epithelial Cells MODERATE Urine Bacteria OCCASIONAL Urine Hyaline Casts FEW Urine Hemoglobin TRACE Urine Glucose NEGATIVE Urine Total Protein 1+ H Urine Opiates Screen Negative Urine Barbiturates Negative Urine Amphetamines Screen Negative Urine Benzodiazepines Screen Negative Urine Cocaine Screen Negative Urine Cannabinoids Positive White Blood Count 9.3 # Red Blood Count 5.47 Hemoglobin 17.1 Hematocrit 49.6 Mean Corpuscular Volume 90.7 Mean Corpuscular Hemoglobin 31.3 Mean Corpuscular Hemoglobin Concent 34.5 Red Cell Distribution Width 13.2 Platelet Count 168 # Mean Platelet Volume 9.4 Neutrophils % 59.7 Lymphocytes % 25.8 Monocytes % 11.9 H Eosinophils % 1.5 Basophils % 0.8 Nucleated Red Blood Cells % 0.0 Neutrophils # 5.6 Lymphocytes # 2.4 Monocytes # 1.1 H Eosinophils # 0.1 Basophils # 0.1 Nucleated Red Blood Cells # 0.0 Sodium Level 147 H Potassium Level 3.6 Chloride Level 110 Carbon Dioxide Level 23 Anion Gap 18 #H Blood Urea Nitrogen 28 H Creatinine 1.21 Glucose Level 94 # Hemoglobin A1c 5.1 Calcium Level 9.7 Phosphorus Level 3.4 Magnesium Level 2.2 Triglycerides Level 152 H Cholesterol Level 230 H LDL Cholesterol, Calculated 160 HDL Cholesterol 40 Cholesterol/HDL Ratio 5.7 Thyroid Stimulating Hormone (TSH) 0.924 Medications Medications Current Medications Labetalol HCl (Labetalol) 20 mg Q20M PRN IV ELEVATED BLOOD PRESSURE Last administered on 01/25/17 15:40; Admin Dose 20 MG; Start 01/25/17 at 16:00 Ondansetron HCl (Zofran Inj) 4 mg Q6H PRN IV NAUSEA AND/OR VOMITING; Start 07/03 at 18:00 Acetaminophen (Tylenol Tab) 650 mg Q6H PRN PO PAIN LEVEL 1-3 OR FEVER; Start at 18:00 Acetaminophen/ Hydrocodone Bitart ([place] (5/325)) 1 tab Q6H PRN PO MODERATE PAIN LEVEL 4-6; Start 01/25/17 at 18:00 Morphine Sulfate (morphine) 2 mg Q4H PRN IV SEVERE PAIN LEVEL 7-10; Start 01/25 at 18:00 Docusate Sodium (Colace) 100 mg Q12H PRN PO CONSTIPATION; Start 01/25/17 at 18: 00 Magnesium Hydroxide (Milk Of Mag) 30 ml DAILY PRN PO CONSTIPATION; Start at 18:00 Sodium Biphosphate/ Sodium Phosphate (Fleet Enema) 133 ml DAILY PRN [place] CONSTIPATION; Start 01/25/17 at 18:00 Famotidine (Pepcid Iv) 20 mg HS IV Last administered on 01/25/17 21:44; Admin Dose 20 MG; Start 01/25/17 at 21:00 Lorazepam 0.5 mg 0.5 mg Q6H PRN IV ANXIETY; Start 01/25/17 at 18:00 Sodium Chloride (NS) 1,000 ml @ 100 mls/hr Q10H IV Last administered on 11:33; Admin Dose 100 MLS/HR; Start 01/25/17 at 17:45 Hydralazine HCl (Apresoline) 10 mg Q6H PRN IV ELEVATED BLOOD PRESSURE; Start at 18:00 Nitroglycerin (Nitroglycerin (Sl Tab) 0.4 Mg) 1 tab Q5M PRN SL ANGINA; Start at 18:00 Aspirin (Ecotrin) 325 mg DAILY PO Last administered on 01/26/17 08:54; Admin Dose 325 MG; Start 01/26/17 at 09:00 Atorvastatin Calcium 80 mg 80 mg HS PO ; Start 01/26/17 at 21:00 Nicardipine HCl/ Dextrose (Cardene Iv/D5W) 250 ml @ 50 mls/hr TITRATE IV Last administered on 01/26/17 13:56; Admin Dose 70 MLS/HR; Start 01/26/17 at 11:30 Carvedilol (Coreg) 3.125 mg BID PO ; Start 01/26/17 at 21:00; Status DUKE KILGORE MD Jan 26, 2017 15:31
--- NOTE | 2017-01-26 16:54 | RADRPT ---
Echocardiogram Report Patient Name: KATHY FULLER Gender: Male Date: 1960 Study Date: 26-Jan-2017 Mechanical Planner: Aliza Barboza [facility] Location: 119 Ref. Physician: SIXTO SHAH Quality: Good Procedures: Transthoracic echocardiogram with complete 2D, M-Mode, and doppler examination. Indications: Chest Pain. 2D/M Mode Doppler Measurement Value Normal Ranges Measurement Value Normal Ranges LVIDd 2D 3.8 3.5 - 5.6 cm AV Peak Gagan 1.7 m/sec LVIDs 2D 2.6 2.1 - 4.1 cm AV Peak PG 11.0 mmHg FS 2D 32.5 % LVOT Peak Gagan 1.0 m/sec LVPWd 2D 2.1 0.6 - 1.1 cm LVOT Peak PG 4.0 mmHg IVSd 2D 2.2 0.6 - 1.1 cm TR Peak Gagan 1.6 m/sec IVS/LVPW 2D 1.0 TR Peak PG 10.0 mmHg AoR Diam 2D 3.3 2.0 - 3.7 cm RVSP 13.0 mmHg LA/Ao 2D 1 0 - 1 EDV 2D 55.7 cm3 ESV 2D 17.2 cm3 LA Dimen 2D 2.8 2.3 - 4.0 cm Findings Left Ventricle: Normal left ventricular systolic function. Severe concentric left ventricular hypertrophy. Reduced left ventricular cavity size. Ejection fraction is visually estimated at 55 %. Right Ventricle: Normal right ventricular size. Normal right ventricular systolic function. Left Atrium: The left atrium is normal in size. Right Atrium: The right atrium is normal in size. Mitral Valve: Mitral valve leaflets appear mildly thickened. Moderate mitral annular calcification. Trace mitral regurgitation. Aortic Valve: No significant aortic stenosis or insufficiency. Aortic cusps appear moderately calcified. Tricuspid Valve: Normal appearance of the tricuspid valve. Estimated peak PA systolic pressure 13 mmHg. There is trace tricuspid regurgitation. Pulmonic Valve: Normal pulmonic valve appearance. Pericardium: Normal pericardium with no significant pericardial effusion. Aorta: Normal aortic root. IVC: Normal size and normal respiratory collapse consistent with normal right atrial pressure. Conclusions 1.Normal left ventricular systolic function. Severe concentric left ventricular hypertrophy. Reduced left ventricular cavity size. Ejection fraction is visually estimated at 55 %. 2.Mitral valve leaflets appear mildly thickened. Moderate mitral annular calcification. Trace mitral regurgitation. 3.No significant aortic stenosis or insufficiency. Aortic cusps appear moderately calcified. 4.Normal appearance of the tricuspid valve. Estimated peak PA systolic pressure 13 mmHg. There is trace tricuspid regurgitation. Electronically Signed By: Chaz Perla 26-Jan-2017 16:53:56 -0700 Patient Name: KATHY FULLER Study Date: 26-Jan-[id number]
[2017-01-26] MEDS: ATORVASTATIN 80 MG TAB PO SCH (20:34)
[2017-01-26] MEDS: FAMOTIDINE 20 MG INJ IV SCH (20:34)
[2017-01-27] VITALS (90 sets, daily range): BP systolic 112–212; BP diastolic 64–152; PULSE 70–122; RESP 8–26
[2017-01-27 06:41] LABS: ADD SCAN DIFF NO
[2017-01-27 06:54] LABS: BASOPHIL # 0.1 10^3/ul (0.0-0.1); BASOPHILS % 0.7 % (0.0-2.0); EOSINOPHILS # 0.3 10^3/ul (0.0-0.5); EOSINOPHILS % 3.3 % (0.0-7.0); HEMATOCRIT 46.4 % (42.0-52.0); HEMOGLOBIN 16.1 g/dl (14.0-18.0); LYMPHOCYTES # 2.2 10^3/ul (0.8-2.9); LYMPHOCYTES % 26.8 % (15.0-51.0); MEAN CORPUSCULAR HEMOGLOBIN 31.3 pg (29.0-33.0); MEAN CORPUSCULAR HGB CONC 34.7 g/dl (32.0-37.0); MEAN CORPUSCULAR VOLUME 90.1 fl (82.0-101.0); MEAN PLATELET VOLUME 9.7 fl (7.4-10.4); MONOCYTE # 0.8 10^3/ul (0.3-0.9); NEUTROPHIL # 4.9 10^3/ul (1.6-7.5); PLATELET COUNT 155 10^3/UL (140-415); RED BLOOD COUNT 5.15 10^6/ul (4.70-6.10); RED CELL DISTRIBUTION WIDTH 12.8 % (11.5-14.5); WHITE BLOOD COUNT 8.3 10^3/ul (4.8-10.8)
[2017-01-27 07:17] LABS: CALCIUM 9.1 mg/dl (8.4-10.2); CREATININE 1.08 mg/dl (0.61-1.24); POTASSIUM 3.5 mmol/L (3.5-5.1)
[2017-01-27] MEDS: ASPIRIN (EC) 325 MG TAB PO SCH (09:25)
[2017-01-27] MEDS: SOD CHLORIDE 0.9% 1,000 ML IV SCH (09:25)
--- NOTE | 2017-01-27 11:24 | PN ---
Date/Time of Note Date/Time of Note DATE: 01/27/17 TIME: 11:22 Assessment/Plan VTE Prophylaxis VTE Prophylaxis Intervention: SCD's Lines/Catheters [facility] Peripheral IV Urinary Cath still in place: No Assessment/Plan Chief Complaint/Hosp Course ASSESSMENT AND PLAN: 1. Acute CVA MRI of the brain demonstrated acute left thalamic infarct. Continue aspirin and statin Continue to monitor patient's blood pressure and treat accordingly as per CVA protocol Obtain transesophageal 2D echocardiogram with bubble study 2. Hypertensive emergency. Continue Cardene drip to keep blood pressure below 170 and above 140. Start the patient on low dose of Coreg and continue to observe 3. Dyslipidemia. Continue statin 4. Gastrointestinal prophylaxis. We will put him on H2 dorothea. 5. Deep venous thrombosis prophylaxis. He will be on sequential compression devices as well. Problems: Subjective 24 Hr Interval Summary Free Text/Dictation Denies of any chest pain or shortness of breath Tolerating oral intake No nausea vomiting diarrhea Exam/Review of Systems Vital Signs Vitals Vital Signs Date Time Temp Pulse Resp B/P Pulse Ox O2 Delivery O2 Flow Rate FiO2 01/27/17 08:00 77 01/27/17 06:45 21 159/101 01/27/17 06:00 98 Room Air 01/27/17 04:00 98.0 01/26/17 23:00 2.0 Intake and Output 01/26/17 01/26/17 01/27/17 15:00 23:00 07:00 Intake Total 1007 ml 1995 ml 980 ml Output Total 600 ml 450 ml 875 ml Balance 407 ml 1545 ml 105 ml Exam General: The patient is well-developed, Not in acute distress. HEENT: Atraumatic, normocephalic. The pupils are equal and round . Neck: Supple with full range of motion. Chest: Normal expansion of the thorax during inspiration Lungs: Clear to auscultation bilaterally Heart: Normal S1-S2, Regular rhythm and rate. Abdomen: Soft , nontender, nondistended , bowel sounds are present. Extremities: Right upper extremity weakness 3/5, no edema no cyanosis Neurologic: The patient is awake, alert Results Result Diagram: 01/27/17 0542 01/27/17 0542 Results 24 hrs Laboratory Tests Test 01/27/17 05:42 White Blood Count 8.3 Red Blood Count 5.15 Hemoglobin 16.1 Hematocrit 46.4 Mean Corpuscular Volume 90.1 Mean Corpuscular Hemoglobin 31.3 Mean Corpuscular Hemoglobin Concent 34.7 Red Cell Distribution Width 12.8 Platelet Count 155 Mean Platelet Volume 9.7 Neutrophils % 59.0 Lymphocytes % 26.8 Monocytes % 10.0 Eosinophils % 3.3 Basophils % 0.7 Nucleated Red Blood Cells % 0.0 Neutrophils # 4.9 Lymphocytes # 2.2 Monocytes # 0.8 Eosinophils # 0.3 Basophils # 0.1 Nucleated Red Blood Cells # 0.0 Sodium Level 141 Potassium Level 3.5 Chloride Level 109 Carbon Dioxide Level 23 Anion Gap 13 Blood Urea Nitrogen 20 Creatinine 1.08 Glucose Level 102 Calcium Level 9.1 Medications Medications Current Medications Labetalol HCl (Labetalol) 20 mg Q20M PRN IV ELEVATED BLOOD PRESSURE Last administered on 01/25/17 15:40; Admin Dose 20 MG; Start 01/25/17 at 16:00 Ondansetron HCl (Zofran Inj) 4 mg Q6H PRN IV NAUSEA AND/OR VOMITING; Start 07/03 at 18:00 Acetaminophen (Tylenol Tab) 650 mg Q6H PRN PO PAIN LEVEL 1-3 OR FEVER; Start at 18:00 Acetaminophen/ Hydrocodone Bitart ([place] (5/325)) 1 tab Q6H PRN PO MODERATE PAIN LEVEL 4-6; Start 01/25/17 at 18:00 Morphine Sulfate (morphine) 2 mg Q4H PRN IV SEVERE PAIN LEVEL 7-10; Start 01/25 at 18:00 Docusate Sodium (Colace) 100 mg Q12H PRN PO CONSTIPATION; Start 01/25/17 at 18: 00 Magnesium Hydroxide (Milk Of Mag) 30 ml DAILY PRN PO CONSTIPATION; Start at 18:00 Sodium Biphosphate/ Sodium Phosphate (Fleet Enema) 133 ml DAILY PRN [place] CONSTIPATION; Start 01/25/17 at 18:00 Famotidine (Pepcid Iv) 20 mg HS IV Last administered on 01/26/17 20:34; Admin Dose 20 MG; Start 01/25/17 at 21:00 Lorazepam 0.5 mg 0.5 mg Q6H PRN IV ANXIETY; Start 01/25/17 at 18:00 Sodium Chloride (NS) 1,000 ml @ 100 mls/hr Q10H IV Last administered on 09:25; Admin Dose 100 MLS/HR; Start 01/25/17 at 17:45 Hydralazine HCl (Apresoline) 10 mg Q6H PRN IV ELEVATED BLOOD PRESSURE; Start at 18:00 Nitroglycerin (Nitroglycerin (Sl Tab) 0.4 Mg) 1 tab Q5M PRN SL ANGINA; Start at 18:00 Aspirin (Ecotrin) 325 mg DAILY PO Last administered on 01/27/17 09:25; Admin Dose 325 MG; Start 01/26/17 at 09:00 Atorvastatin Calcium 80 mg 80 mg HS PO Last administered on 01/26/17 20:34; Admin Dose 80 MG; Start 01/26/17 at 21:00 Nicardipine HCl/ Dextrose (Cardene Iv/D5W) 250 ml @ 50 mls/hr TITRATE IV Last administered on 01/27/17 06:06; Admin Dose 40 MLS/HR; Start 01/26/17 at 11:30 Carvedilol (Coreg) 6.25 mg BID PO Last administered on 01/27/17 09:25; Admin Dose 6.25 MG; Start 01/27/17 at 10:00 DUKE WINTERS MD Jan 27, 2017 11:24
--- NOTE | 2017-01-27 11:51 | CONS ---
Date/Time of Note Date/Time of Note DATE: 01/27/17 TIME: 11:50 Consult Date/Type/Reason Admit Date/Time Jan 25, 2017 at 18:02 Initial Consult Date 01/26/17 Type of Consultation: Neurology Reason for Consultation CVA Ordering Provider: SIXTO SHAH Subjective remains in ICU for more optimal blood pressure control started on coreg Objective Vital Signs Date Time Temp Pulse Resp B/P Pulse Ox O2 Delivery O2 Flow Rate FiO2 01/27/17 08:00 77 01/27/17 06:45 21 159/101 01/27/17 06:00 98 Room Air 01/27/17 04:00 98.0 01/26/17 23:00 2.0 Intake and Output 01/26/17 01/26/17 01/27/17 15:00 23:00 07:00 Intake Total 1007 ml 1995 ml 980 ml Output Total 600 ml 450 ml 875 ml Balance 407 ml 1545 ml 105 ml Exam awake and alert oriented to self hospital date appears disheveled, mood affect intact follows commands well no aphasia or neglect CN: ROSSI, VFF EOMI no nystagmus v1-3 intact right lower facial droop palate upgoing uvula midline scm/trap intact tongue midline Motor: right arm 0/5 flaccid paralysis, right leg can briefly lift anti-gravity few seconds drifts to bed Sensory intact to right side Coordination unable to perform on right Results/Medications Result Diagram: 01/27/17 0542 01/27/17 0542 Results 24 hrs Laboratory Tests Test 01/27/17 05:42 White Blood Count 8.3 Red Blood Count 5.15 Hemoglobin 16.1 Hematocrit 46.4 Mean Corpuscular Volume 90.1 Mean Corpuscular Hemoglobin 31.3 Mean Corpuscular Hemoglobin Concent 34.7 Red Cell Distribution Width 12.8 Platelet Count 155 Mean Platelet Volume 9.7 Neutrophils % 59.0 Lymphocytes % 26.8 Monocytes % 10.0 Eosinophils % 3.3 Basophils % 0.7 Nucleated Red Blood Cells % 0.0 Neutrophils # 4.9 Lymphocytes # 2.2 Monocytes # 0.8 Eosinophils # 0.3 Basophils # 0.1 Nucleated Red Blood Cells # 0.0 Sodium Level 141 Potassium Level 3.5 Chloride Level 109 Carbon Dioxide Level 23 Anion Gap 13 Blood Urea Nitrogen 20 Creatinine 1.08 Glucose Level 102 Calcium Level 9.1 Medications Current Medications Labetalol HCl (Labetalol) 20 mg Q20M PRN IV ELEVATED BLOOD PRESSURE Last administered on 01/25/17 15:40; Admin Dose 20 MG; Start 01/25/17 at 16:00 Ondansetron HCl (Zofran Inj) 4 mg Q6H PRN IV NAUSEA AND/OR VOMITING; Start 07/03 at 18:00 Acetaminophen (Tylenol Tab) 650 mg Q6H PRN PO PAIN LEVEL 1-3 OR FEVER; Start at 18:00 Acetaminophen/ Hydrocodone Bitart ([place] (5/325)) 1 tab Q6H PRN PO MODERATE PAIN LEVEL 4-6; Start 01/25/17 at 18:00 Morphine Sulfate (morphine) 2 mg Q4H PRN IV SEVERE PAIN LEVEL 7-10; Start 01/25 at 18:00 Docusate Sodium (Colace) 100 mg Q12H PRN PO CONSTIPATION; Start 01/25/17 at 18: 00 Magnesium Hydroxide (Milk Of Mag) 30 ml DAILY PRN PO CONSTIPATION; Start at 18:00 Sodium Biphosphate/ Sodium Phosphate (Fleet Enema) 133 ml DAILY PRN [place] CONSTIPATION; Start 01/25/17 at 18:00 Famotidine (Pepcid Iv) 20 mg HS IV Last administered on 01/26/17 20:34; Admin Dose 20 MG; Start 01/25/17 at 21:00 Lorazepam 0.5 mg 0.5 mg Q6H PRN IV ANXIETY; Start 01/25/17 at 18:00 Sodium Chloride (NS) 1,000 ml @ 100 mls/hr Q10H IV Last administered on 09:25; Admin Dose 100 MLS/HR; Start 01/25/17 at 17:45 Hydralazine HCl (Apresoline) 10 mg Q6H PRN IV ELEVATED BLOOD PRESSURE; Start at 18:00 Nitroglycerin (Nitroglycerin (Sl Tab) 0.4 Mg) 1 tab Q5M PRN SL ANGINA; Start at 18:00 Aspirin (Ecotrin) 325 mg DAILY PO Last administered on 01/27/17 09:25; Admin Dose 325 MG; Start 01/26/17 at 09:00 Atorvastatin Calcium 80 mg 80 mg HS PO Last administered on 01/26/17 20:34; Admin Dose 80 MG; Start 01/26/17 at 21:00 Nicardipine HCl/ Dextrose (Cardene Iv/D5W) 250 ml @ 50 mls/hr TITRATE IV Last administered on 01/27/17 06:06; Admin Dose 40 MLS/HR; Start 01/26/17 at 11:30 Carvedilol (Coreg) 12.5 mg BID PO ; Start 01/27/17 at 21:00 Nifedipine (Procardia Xl) 30 mg BID PO ; Start 01/27/17 at 12:30 Assessment/Plan Chief Complaint/Hosp Course 56 year old male with history of uncontrolled hypertension previous smoker admitted with acute left thalamic infarct. etiology small vessel disease Recommendations: titrate cardene drip for goal SBP<180 will eventually require tighter control and eventual goal of SBP<130/80 for lacunar infarctions continue aspirin HBA1C 5.1% at target LDL: 160 will require high dose statin lipitor 80 mg qhs ECHO wnl PT/OT/Speech evaluation for [place] outpatient neurology follow upon discharge Problems: XIOMARA CLEMENTE MD Jan 27, 2017 11:51
[2017-01-27] MEDS: NIFEdipine (XL) 30 MG TAB PO SCH ×3 (12:30→20:26)
[2017-01-27] MEDS: ATORVASTATIN 80 MG TAB PO SCH (20:25)
[2017-01-27] MEDS: FAMOTIDINE 20 MG INJ IV SCH (20:26)
[2017-01-28] VITALS (23 sets, daily range): BP systolic 113–184; BP diastolic 72–119; PULSE 74–104; RESP 13–24
[2017-01-28 06:58] LABS: ADD SCAN DIFF NO
[2017-01-28 07:11] LABS: BASOPHIL # 0.1 10^3/ul (0.0-0.1); EOSINOPHILS # 0.3 10^3/ul (0.0-0.5); EOSINOPHILS % 4.6 % (0.0-7.0); LYMPHOCYTES # 2.5 10^3/ul (0.8-2.9); LYMPHOCYTES % 34.3 % (15.0-51.0); MEAN CORPUSCULAR HEMOGLOBIN 31.7 pg (29.0-33.0); MEAN CORPUSCULAR HGB CONC 35.6 g/dl (32.0-37.0); MEAN CORPUSCULAR VOLUME 89.1 fl (82.0-101.0); MEAN PLATELET VOLUME 9.8 fl (7.4-10.4); MONOCYTE # 0.9 10^3/ul (0.3-0.9); MONOCYTES % 12.1 % (0.0-11.0); NEUTROPHIL # 3.4 10^3/ul (1.6-7.5); NEUTROPHILS % 47.9 % (39.0-77.0); PLATELET COUNT 172 10^3/UL (140-415); RED BLOOD COUNT 5.05 10^6/ul (4.70-6.10); RED CELL DISTRIBUTION WIDTH 12.5 % (11.5-14.5); WHITE BLOOD COUNT 7.2 10^3/ul (4.8-10.8)
[2017-01-28 08:02] LABS: CALCIUM 9.3 mg/dl (8.4-10.2); CREATININE 1.05 mg/dl (0.61-1.24); POTASSIUM 3.6 mmol/L (3.5-5.1)
[2017-01-28] MEDS: ASPIRIN (EC) 325 MG TAB PO SCH (08:15)
[2017-01-28] MEDS: NIFEdipine (XL) 30 MG TAB PO SCH (08:16)
--- NOTE | 2017-01-28 10:50 | PN ---
Date/Time of Note Date/Time of Note DATE: 01/28/17 TIME: 10:49 Assessment/Plan VTE Prophylaxis VTE Prophylaxis Intervention: SCD's Lines/Catheters IV Catheter Type (from Nrs): Peripheral IV Urinary Cath still in place: No Assessment/Plan Assessment/Plan 56 yo M admitted for R sided weakness in setting of severely elevated BP, imaging confirms L thalamic infract 1. Acute CVA: MRI brain acute left thalamic infarct. Continue aspirin and statin Cont BP control TTE with LVH, no mention of PFO; cont tele. no afib thus far PT/OT/acute rehab evals neurology following 2. Hypertensive emergency. Transitioned now to PO meds 3. Dyslipidemia. Continue statin prophx: SQH/SCDs Given pt has been of BP drip x 12 hours, will transfer to floor for further care Subjective 24 Hr Interval Summary Free Text/Dictation Seen sitting up in bed eating breakfast watching tv. Reports RLE doing well, still struggling with RUE anti hypertensive drip has been off since [place] Exam/Review of Systems Vital Signs Vitals Vital Signs Date Time Temp Pulse Resp B/P Pulse Ox O2 Delivery O2 Flow Rate FiO2 01/28/17 09:00 83 20 154/111 98 Room Air 01/28/17 08:00 98.6 01/27/17 20:48 21 01/26/17 23:00 2.0 Intake and Output 01/27/17 01/27/17 01/28/17 15:00 23:00 07:00 Intake Total 850 ml 540.0 ml 20 ml Output Total 900 ml 550 ml 200 ml Balance -50 ml -10.0 ml -180 ml Exam nad no mrg lungs clear abd soft no le edema able move R thumb and index finger slightly, still 0/5 in upper arm Results Result Diagram: 01/28/17 0551 01/28/17 0551 Results 24 hrs Laboratory Tests Test 01/28/17 05:51 White Blood Count 7.2 Red Blood Count 5.05 Hemoglobin 16.0 Hematocrit 45.0 Mean Corpuscular Volume 89.1 Mean Corpuscular Hemoglobin 31.7 Mean Corpuscular Hemoglobin Concent 35.6 Red Cell Distribution Width 12.5 Platelet Count 172 Mean Platelet Volume 9.8 Neutrophils % 47.9 Lymphocytes % 34.3 Monocytes % 12.1 H Eosinophils % 4.6 Basophils % 1.0 Nucleated Red Blood Cells % 0.0 Neutrophils # 3.4 Lymphocytes # 2.5 Monocytes # 0.9 Eosinophils # 0.3 Basophils # 0.1 Nucleated Red Blood Cells # 0.0 Sodium Level 141 Potassium Level 3.6 Chloride Level 108 Carbon Dioxide Level 23 Anion Gap 14 Blood Urea Nitrogen 17 Creatinine 1.05 Glucose Level 97 Calcium Level 9.3 Medications Medications Current Medications Labetalol HCl (Labetalol) 20 mg Q20M PRN IV ELEVATED BLOOD PRESSURE Last administered on 01/25/17 15:40; Admin Dose 20 MG; Start 01/25/17 at 16:00 Ondansetron HCl (Zofran Inj) 4 mg Q6H PRN IV NAUSEA AND/OR VOMITING; Start 07/03 at 18:00 Acetaminophen (Tylenol Tab) 650 mg Q6H PRN PO PAIN LEVEL 1-3 OR FEVER; Start at 18:00 Acetaminophen/ Hydrocodone Bitart ([place] (5/325)) 1 tab Q6H PRN PO MODERATE PAIN LEVEL 4-6; Start 01/25/17 at 18:00 Morphine Sulfate (morphine) 2 mg Q4H PRN IV SEVERE PAIN LEVEL 7-10; Start 01/25 at 18:00 Docusate Sodium (Colace) 100 mg Q12H PRN PO CONSTIPATION; Start 01/25/17 at 18: 00 Magnesium Hydroxide (Milk Of Mag) 30 ml DAILY PRN PO CONSTIPATION; Start at 18:00 Sodium Biphosphate/ Sodium Phosphate (Fleet Enema) 133 ml DAILY PRN [place] CONSTIPATION; Start 01/25/17 at 18:00 Famotidine (Pepcid Iv) 20 mg HS IV Last administered on 01/27/17 20:26; Admin Dose 20 MG; Start 01/25/17 at 21:00 Lorazepam (Ativan) 0.5 mg Q6H PRN IV ANXIETY; Start 01/25/17 at 18:00 Hydralazine HCl (Apresoline) 10 mg Q6H PRN IV ELEVATED BLOOD PRESSURE; Start at 18:00 Nitroglycerin (Nitroglycerin (Sl Tab) 0.4 Mg) 1 tab Q5M PRN SL ANGINA; Start at 18:00 Aspirin (Ecotrin) 325 mg DAILY PO Last administered on 01/28/17 08:15; Admin Dose 325 MG; Start 01/26/17 at 09:00 Atorvastatin Calcium 80 mg 80 mg HS PO Last administered on 01/27/17 20:25; Admin Dose 80 MG; Start 01/26/17 at 21:00 Nicardipine HCl/ Dextrose (Cardene Iv/D5W) 250 ml @ 50 mls/hr TITRATE IV Last administered on 01/27/17 22:30; Admin Dose 60 MLS/HR; Start 01/26/17 at 11:30 Carvedilol (Coreg) 12.5 mg BID PO Last administered on 01/28/17 08:15; Admin Dose 12.5 MG; Start 01/27/17 at 21:00 Nifedipine (Procardia Xl) 30 mg BID PO Last administered on 01/28/17 08:16; Admin Dose 30 MG; Start 01/27/17 at 12:30 CLAUDIO ISABEL MD Jan 28, 2017 10:50
[2017-01-28] MEDS: ATORVASTATIN 80 MG TAB PO SCH (20:18)
[2017-01-28] MEDS: LABETALOL HCL 20MG INJ IV PRN (20:19)
[2017-01-29] VITALS (12 sets, daily range): BP systolic 139–181; BP diastolic 78–104; PULSE 70–80; RESP 18–20
[2017-01-29] MEDS: ASPIRIN (EC) 81 MG TAB PO SCH (08:11)
[2017-01-29] MEDS: NIFEdipine (XL) 60 MG TAB PO SCH (08:12)
[2017-01-29] MEDS ORDERED: NIFEdipine (XL) 30 MG TAB PO SCH (09:00)
[2017-01-29] MEDS ORDERED: ASPIRIN (EC) 325 MG TAB PO SCH (09:00)
[2017-01-29 10:52] LABS: ADD SCAN DIFF NO
[2017-01-29 10:53] LABS: BASOPHIL # 0.1 10^3/ul (0.0-0.1); BASOPHILS % 0.6 % (0.0-2.0); EOSINOPHILS # 0.2 10^3/ul (0.0-0.5); HEMATOCRIT 44.2 % (42.0-52.0); HEMOGLOBIN 16.1 g/dl (14.0-18.0); LYMPHOCYTES # 1.8 10^3/ul (0.8-2.9); LYMPHOCYTES % 22.7 % (15.0-51.0); MEAN CORPUSCULAR HEMOGLOBIN 32.8 pg (29.0-33.0); MEAN CORPUSCULAR HGB CONC 36.4 g/dl (32.0-37.0); MEAN PLATELET VOLUME 9.8 fl (7.4-10.4); MONOCYTES % 12.3 % (0.0-11.0); NEUTROPHIL # 4.9 10^3/ul (1.6-7.5); PLATELET COUNT 172 10^3/UL (140-415); RED BLOOD COUNT 4.91 10^6/ul (4.70-6.10); RED CELL DISTRIBUTION WIDTH 12.6 % (11.5-14.5)
[2017-01-29 11:15] LABS: CALCIUM 10.1 mg/dl (8.4-10.2); CREATININE 1.32 mg/dl (0.61-1.24); POTASSIUM 4.1 mmol/L (3.5-5.1)
--- NOTE | 2017-01-29 11:56 | PN ---
Date/Time of Note Date/Time of Note DATE: 01/29/17 TIME: 11:56 Assessment/Plan VTE Prophylaxis VTE Prophylaxis Intervention: SCD's Lines/Catheters [facility] Peripheral IV Urinary Cath still in place: No Assessment/Plan Assessment/Plan 56 yo M admitted for R sided weakness in setting of severely elevated BP, imaging confirms L thalamic infract 1. Acute CVA: MRI brain acute left thalamic infarct. Continue aspirin and statin Cont BP control TTE with LVH, no mention of PFO; cont tele. 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 Hypertensive emergency. Transitioned now to PO meds 3. Dyslipidemia. Continue statin prophx: SQH/SCDs Subjective 24 Hr Interval Summary Free Text/Dictation Pt feels ok this AM Of note, wasn't on any home BP meds prior to admission. States he hadn't seen a regular doctor for some time Exam/Review of Systems Vital Signs Vitals Vital Signs Date Time Temp Pulse Resp B/P Pulse Ox O2 Delivery O2 Flow Rate FiO2 01/29/17 11:24 98.0 82 18 139/92 97 01/28/17 16:01 21 01/28/17 16:00 Room Air 01/26/17 23:00 2.0 Intake and Output 01/28/17 01/28/17 01/29/17 15:00 23:00 07:00 Intake Total 750 ml 450 ml Output Total 990 ml 250 ml Balance -240 ml -250 ml 450 ml Exam nad, mild R facial droop able to wiggle fingers in R hand a little no mrg lungs clear abd soft no le edema Results Result Diagram: 01/29/17 1035 01/29/17 1035 Results 24 hrs Laboratory Tests Test 01/29/17 10:35 White Blood Count 8.0 Red Blood Count 4.91 Hemoglobin 16.1 Hematocrit 44.2 Mean Corpuscular Volume 90.0 Mean Corpuscular Hemoglobin 32.8 Mean Corpuscular Hemoglobin Concent 36.4 Red Cell Distribution Width 12.6 Platelet Count 172 Mean Platelet Volume 9.8 Neutrophils % 61.0 Lymphocytes % 22.7 Monocytes % 12.3 H Eosinophils % 3.0 Basophils % 0.6 Nucleated Red Blood Cells % 0.0 Neutrophils # 4.9 Lymphocytes # 1.8 Monocytes # 1.0 H Eosinophils # 0.2 Basophils # 0.1 Nucleated Red Blood Cells # 0.0 Sodium Level 142 Potassium Level 4.1 Chloride Level 107 Carbon Dioxide Level 27 Anion Gap 12 Blood Urea Nitrogen 24 H Creatinine 1.32 H Glucose Level 114 Calcium Level 10.1 Medications Medications Current Medications Ondansetron HCl (Zofran Inj) 4 mg Q6H PRN IV NAUSEA AND/OR VOMITING; Start 07/03 at 18:00 Acetaminophen (Tylenol Tab) 650 mg Q6H PRN PO PAIN LEVEL 1-3 OR FEVER; Start at 18:00 Acetaminophen/ Hydrocodone Bitart ([place] (5/325)) 1 tab Q6H PRN PO MODERATE PAIN LEVEL 4-6; Start 01/25/17 at 18:00 Morphine Sulfate (morphine) 2 mg Q4H PRN IV SEVERE PAIN LEVEL 7-10; Start 01/25 at 18:00 Docusate Sodium (Colace) 100 mg Q12H PRN PO CONSTIPATION; Start 01/25/17 at 18: 00 Magnesium Hydroxide (Milk Of Mag) 30 ml DAILY PRN PO CONSTIPATION; Start at 18:00 Sodium Biphosphate/ Sodium Phosphate (Fleet Enema) 133 ml DAILY PRN [place] CONSTIPATION; Start 01/25/17 at 18:00 Lorazepam (Ativan) 0.5 mg Q6H PRN IV ANXIETY; Start 01/25/17 at 18:00 Nitroglycerin (Nitroglycerin (Sl Tab) 0.4 Mg) 1 tab Q5M PRN SL ANGINA; Start at 18:00 Atorvastatin Calcium (Lipitor) 80 mg HS PO Last administered on 01/28/17 20:18 ; Admin Dose 80 MG; Start 01/26/17 at 21:00 Carvedilol (Coreg) 12.5 mg BID PO Last administered on 01/29/17 08:12; Admin Dose 12.5 MG; Start 01/27/17 at 21:00 Aspirin (Halfprin) 81 mg DAILY PO Last administered on 01/29/17 08:11; Admin Dose 81 MG; Start 01/29/17 at 09:00 Nifedipine (Procardia Xl) 60 mg DAILY PO Last administered on 01/29/17 08:12; Admin Dose 60 MG; Start 01/29/17 at 09:00 CLAUDIO ISABEL MD Jan 29, 2017 11:56
[2017-01-29] MEDS: ATORVASTATIN 80 MG TAB PO SCH (20:16)
[2017-01-30] VITALS (13 sets, daily range): BP systolic 103–164; BP diastolic 58–107; PULSE 68–86; RESP 15–20
[2017-01-30 08:44] LABS: ADD SCAN DIFF NO
[2017-01-30 08:47] LABS: BASOPHILS % 0.5 % (0.0-2.0); EOSINOPHILS # 0.2 10^3/ul (0.0-0.5); EOSINOPHILS % 2.9 % (0.0-7.0); HEMATOCRIT 44.1 % (42.0-52.0); HEMOGLOBIN 15.5 g/dl (14.0-18.0); LYMPHOCYTES % 30.7 % (15.0-51.0); MEAN CORPUSCULAR HEMOGLOBIN 31.8 pg (29.0-33.0); MEAN CORPUSCULAR HGB CONC 35.1 g/dl (32.0-37.0); MEAN CORPUSCULAR VOLUME 90.6 fl (82.0-101.0); MEAN PLATELET VOLUME 9.7 fl (7.4-10.4); MONOCYTE # 0.9 10^3/ul (0.3-0.9); MONOCYTES % 13.3 % (0.0-11.0); NEUTROPHIL # 3.4 10^3/ul (1.6-7.5); NEUTROPHILS % 52.4 % (39.0-77.0); PLATELET COUNT 160 10^3/UL (140-415); RED BLOOD COUNT 4.87 10^6/ul (4.70-6.10); RED CELL DISTRIBUTION WIDTH 12.7 % (11.5-14.5); WHITE BLOOD COUNT 6.5 10^3/ul (4.8-10.8)
[2017-01-30 09:05] LABS: CALCIUM 9.6 mg/dl (8.4-10.2); CREATININE 1.26 mg/dl (0.61-1.24)
[2017-01-30] MEDS: ASPIRIN (EC) 81 MG TAB PO SCH (09:46)
[2017-01-30] MEDS: NIFEdipine (XL) 60 MG TAB PO SCH (09:47)
--- NOTE | 2017-01-30 11:38 | PN ---
Date/Time of Note Date/Time of Note DATE: 01/30/17 TIME: 11:37 Assessment/Plan VTE Prophylaxis VTE Prophylaxis Intervention: SCD's Lines/Catheters IV [facility] Peripheral IV Urinary Cath still in place: No Assessment/Plan Assessment/Plan 56 yo M admitted for R sided weakness in setting of severely elevated BP, imaging confirms L thalamic infract 1. Acute CVA: MRI brain acute left thalamic infarct. Continue aspirin and statin INCREASE CCB DOSE TO IMPROVE BP CONTROL TTE with LVH, no mention of PFO; cont tele. 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 Hypertensive emergency. Transitioned now to PO meds 3. Dyslipidemia. Continue statin prophx: SQH/SCDs dispo planning in process Subjective 24 Hr Interval Summary Free Text/Dictation Feels ok. Agrees he needs to go to some sort of inpatient physical rehab Exam/Review of Systems Vital Signs Vitals Vital Signs Date Time Temp Pulse Resp B/P Pulse Ox O2 Delivery O2 Flow Rate FiO2 01/30/17 08:42 76 01/30/17 08:03 98.6 18 164/107 94 01/28/17 16:01 21 01/28/17 16:00 Room Air 01/26/17 23:00 2.0 Intake and Output 01/29/17 01/29/17 01/30/17 15:00 23:00 07:00 Intake Total 600 ml 450 ml Output Total 600 ml Balance 0 ml 450 ml Exam nad, pleasant no mrg lungs clear abd soft inc ability to make fist with RUE Results Result Diagram: 01/30/17 0837 01/30/17 0837 Results 24 hrs Laboratory Tests Test 01/30/17 08:37 White Blood Count 6.5 Red Blood Count 4.87 Hemoglobin 15.5 Hematocrit 44.1 Mean Corpuscular Volume 90.6 Mean Corpuscular Hemoglobin 31.8 Mean Corpuscular Hemoglobin Concent 35.1 Red Cell Distribution Width 12.7 Platelet Count 160 Mean Platelet Volume 9.7 Neutrophils % 52.4 Lymphocytes % 30.7 Monocytes % 13.3 H Eosinophils % 2.9 Basophils % 0.5 Nucleated Red Blood Cells % 0.0 Neutrophils # 3.4 Lymphocytes # 2.0 Monocytes # 0.9 Eosinophils # 0.2 Basophils # 0.0 Nucleated Red Blood Cells # 0.0 Sodium Level 143 Potassium Level 4.0 Chloride Level 108 Carbon Dioxide Level 26 Anion Gap 13 Blood Urea Nitrogen 28 H Creatinine 1.26 H Glucose Level 102 Calcium Level 9.6 Medications Medications Current Medications Ondansetron HCl (Zofran Inj) 4 mg Q6H PRN IV NAUSEA AND/OR VOMITING; Start 07/03 at 18:00 Acetaminophen (Tylenol Tab) 650 mg Q6H PRN PO PAIN LEVEL 1-3 OR FEVER; Start at 18:00 Acetaminophen/ Hydrocodone Bitart ([place] (5/325)) 1 tab Q6H PRN PO MODERATE PAIN LEVEL 4-6; Start 01/25/17 at 18:00 Docusate Sodium (Colace) 100 mg Q12H PRN PO CONSTIPATION Last administered on 09:47; Admin Dose 100 MG; Start 01/25/17 at 18:00 Magnesium Hydroxide (Milk Of Mag) 30 ml DAILY PRN PO CONSTIPATION; Start at 18:00 Sodium Biphosphate/ Sodium Phosphate (Fleet Enema) 133 ml DAILY PRN [place] CONSTIPATION; Start 01/25/17 at 18:00 Nitroglycerin (Nitroglycerin (Sl Tab) 0.4 Mg) 1 tab Q5M PRN SL ANGINA; Start at 18:00 Atorvastatin Calcium (Lipitor) 80 mg HS PO Last administered on 01/29/17 20:16 ; Admin Dose 80 MG; Start 01/26/17 at 21:00 Carvedilol (Coreg) 12.5 mg BID PO Last administered on 01/30/17 09:47; Admin Dose 12.5 MG; Start 01/27/17 at 21:00 Aspirin (Halfprin) 81 mg DAILY PO Last administered on 01/30/17 09:46; Admin Dose 81 MG; Start 01/29/17 at 09:00 Nifedipine (Procardia Xl) 60 mg DAILY PO Last administered on 01/30/17 09:47; Admin Dose 60 MG; Start 01/29/17 at 09:00 Clonidine (Catapres) 0.1 mg Q8 PRN PO ELEVATED BLOOD PRESSURE Last administered on 01/29/17 20:17; Admin Dose 0.1 MG; Start 01/29/17 at 12:00 CLAUDIO ISABEL MD Jan 30, 2017 11:38
[2017-01-30] MEDS: ATORVASTATIN 80 MG TAB PO SCH (21:00)
[2017-01-31] VITALS (10 sets, daily range): BP systolic 102–193; BP diastolic 66–108; PULSE 73–85; RESP 18–20
[2017-01-31] MEDS: NIFEdipine (XL) 90 MG TAB PO SCH (08:39)
[2017-01-31] MEDS: ASPIRIN (EC) 81 MG TAB PO SCH (08:39)
[2017-01-31 11:04] LABS: ADD SCAN DIFF NO
[2017-01-31 11:06] LABS: BASOPHILS % 0.4 % (0.0-2.0); EOSINOPHILS # 0.2 10^3/ul (0.0-0.5); EOSINOPHILS % 1.7 % (0.0-7.0); HEMATOCRIT 43.9 % (42.0-52.0); HEMOGLOBIN 15.5 g/dl (14.0-18.0); LYMPHOCYTES # 1.8 10^3/ul (0.8-2.9); LYMPHOCYTES % 17.7 % (15.0-51.0); MEAN CORPUSCULAR HEMOGLOBIN 31.9 pg (29.0-33.0); MEAN CORPUSCULAR HGB CONC 35.3 g/dl (32.0-37.0); MEAN CORPUSCULAR VOLUME 90.3 fl (82.0-101.0); MEAN PLATELET VOLUME 9.9 fl (7.4-10.4); MONOCYTE # 0.9 10^3/ul (0.3-0.9); MONOCYTES % 9.2 % (0.0-11.0); NEUTROPHILS % 70.7 % (39.0-77.0); PLATELET COUNT 198 10^3/UL (140-415); RED BLOOD COUNT 4.86 10^6/ul (4.70-6.10); RED CELL DISTRIBUTION WIDTH 12.5 % (11.5-14.5)
[2017-01-31 11:23] LABS: CALCIUM 10.2 mg/dl (8.4-10.2); CREATININE 1.2 mg/dl (0.61-1.24); POTASSIUM 4.1 mmol/L (3.5-5.1)
--- NOTE | 2017-01-31 12:53 | PN ---
Date/Time of Note Date/Time of Note DATE: 01/31/17 TIME: 12:53 Assessment/Plan VTE Prophylaxis VTE Prophylaxis Intervention: SCD's Lines/Catheters IV Catheter Type (from [facility]): Saline Lock Urinary Cath still in place: No Assessment/Plan Assessment/Plan 56 yo M admitted for R sided weakness in setting of severely elevated BP, imaging confirms L thalamic infract 1. Acute CVA: MRI brain acute left thalamic infarct. Continue aspirin and statin Cont current BP med dose TTE with LVH, no mention of PFO; tele x 48 hours no afib. 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 Hypertensive emergency. Transitioned now to PO meds 3. Dyslipidemia. Continue statin prophx: SQH/SCDs dispo planning in process Subjective 24 Hr Interval Summary Free Text/Dictation BPs better, pt wondering about dispo Exam/Review of Systems Vital Signs Vitals Vital Signs Date Time Temp Pulse Resp B/P Pulse Ox O2 Delivery O2 Flow Rate FiO2 01/31/17 11:53 73 01/31/17 11:05 98.0 18 158/104 96 01/28/17 16:01 21 01/28/17 16:00 Room Air Intake and Output 01/30/17 01/30/17 01/31/17 15:00 23:00 07:00 Intake Total 850 ml 350 ml Output Total 800 ml Balance 850 ml -450 ml Exam nad, sitting at side of bed no mrg lungs clear abd soft no le edema Results Result Diagram: 01/31/17 1035 01/31/17 1035 Results 24 hrs Laboratory Tests Test 01/31/17 10:35 White Blood Count 10.0 # Red Blood Count 4.86 Hemoglobin 15.5 Hematocrit 43.9 Mean Corpuscular Volume 90.3 Mean Corpuscular Hemoglobin 31.9 Mean Corpuscular Hemoglobin Concent 35.3 Red Cell Distribution Width 12.5 Platelet Count 198 # Mean Platelet Volume 9.9 Neutrophils % 70.7 Lymphocytes % 17.7 Monocytes % 9.2 Eosinophils % 1.7 Basophils % 0.4 Nucleated Red Blood Cells % 0.0 Neutrophils # 7.0 Lymphocytes # 1.8 Monocytes # 0.9 Eosinophils # 0.2 Basophils # 0.0 Nucleated Red Blood Cells # 0.0 Sodium Level 142 Potassium Level 4.1 Chloride Level 104 Carbon Dioxide Level 24 Anion Gap 18 H Blood Urea Nitrogen 28 H Creatinine 1.20 Glucose Level 130 Calcium Level 10.2 Medications Medications Current Medications Ondansetron HCl (Zofran Inj) 4 mg Q6H PRN IV NAUSEA AND/OR VOMITING; Start 07/03 at 18:00 Acetaminophen (Tylenol Tab) 650 mg Q6H PRN PO PAIN LEVEL 1-3 OR FEVER; Start at 18:00 Acetaminophen/ Hydrocodone Bitart ([place] (5/325)) 1 tab Q6H PRN PO MODERATE PAIN LEVEL 4-6; Start 01/25/17 at 18:00 Docusate Sodium (Colace) 100 mg Q12H PRN PO CONSTIPATION Last administered on 09:47; Admin Dose 100 MG; Start 01/25/17 at 18:00 Magnesium Hydroxide (Milk Of Mag) 30 ml DAILY PRN PO CONSTIPATION; Start at 18:00 Sodium Biphosphate/ Sodium Phosphate (Fleet Enema) 133 ml DAILY PRN [place] CONSTIPATION; Start 01/25/17 at 18:00 Nitroglycerin (Nitroglycerin (Sl Tab) 0.4 Mg) 1 tab Q5M PRN SL ANGINA; Start at 18:00 Atorvastatin Calcium (Lipitor) 80 mg HS PO Last administered on 01/30/17 21:00 ; Admin Dose 80 MG; Start 01/26/17 at 21:00 Carvedilol (Coreg) 12.5 mg BID PO Last administered on 01/31/17 08:39; Admin Dose 12.5 MG; Start 01/27/17 at 21:00 Aspirin (Halfprin) 81 mg DAILY PO Last administered on 01/31/17 08:39; Admin Dose 81 MG; Start 01/29/17 at 09:00 Clonidine (Catapres) 0.1 mg Q8 PRN PO ELEVATED BLOOD PRESSURE Last administered on 01/29/17 20:17; Admin Dose 0.1 MG; Start 01/29/17 at 12:00 Nifedipine (Procardia Xl) 90 mg DAILY PO Last administered on 01/31/17 08:39; Admin Dose 90 MG; Start 01/31/17 at 09:00 CLAUDIO ISABEL MD Jan 31, 2017 12:53
[2017-01-31] MEDS: ATORVASTATIN 80 MG TAB PO SCH (20:05)
[2017-02-01] VITALS (8 sets, daily range): BP systolic 137–176; BP diastolic 89–101; PULSE 66–78; RESP 18–20
[2017-02-01 08:43] LABS: ADD SCAN DIFF NO
[2017-02-01] MEDS: ASPIRIN (EC) 81 MG TAB PO SCH (08:50)
[2017-02-01] MEDS: NIFEdipine (XL) 90 MG TAB PO SCH (08:50)
[2017-02-01 08:51] LABS: BASOPHILS % 0.5 % (0.0-2.0); EOSINOPHILS # 0.2 10^3/ul (0.0-0.5); EOSINOPHILS % 2.4 % (0.0-7.0); HEMOGLOBIN 14.7 g/dl (14.0-18.0); LYMPHOCYTES # 1.9 10^3/ul (0.8-2.9); LYMPHOCYTES % 24.2 % (15.0-51.0); MEAN CORPUSCULAR HEMOGLOBIN 31.7 pg (29.0-33.0); MEAN CORPUSCULAR VOLUME 90.7 fl (82.0-101.0); MEAN PLATELET VOLUME 9.9 fl (7.4-10.4); MONOCYTE # 0.9 10^3/ul (0.3-0.9); NEUTROPHIL # 4.6 10^3/ul (1.6-7.5); NEUTROPHILS % 60.5 % (39.0-77.0); PLATELET COUNT 188 10^3/UL (140-415); RED BLOOD COUNT 4.63 10^6/ul (4.70-6.10); RED CELL DISTRIBUTION WIDTH 12.7 % (11.5-14.5); WHITE BLOOD COUNT 7.6 10^3/ul (4.8-10.8)
[2017-02-01 09:20] LABS: CALCIUM 9.4 mg/dl (8.4-10.2); CREATININE 1.15 mg/dl (0.61-1.24); POTASSIUM 3.5 mmol/L (3.5-5.1)
[2017-02-01] MEDS ORDERED: NIFEdipine (XL) 30 MG TAB PO ONE (09:30)
--- NOTE | 2017-02-01 11:54 | PN ---
Date/Time of Note Date/Time of Note DATE: 02/01/17 TIME: 11:54 Assessment/Plan VTE Prophylaxis VTE Prophylaxis Intervention: SCD's Lines/Catheters IV Catheter Type (from [facility]): Saline Lock Urinary Cath still in place: No Assessment/Plan Assessment/Plan 56 yo M admitted for R sided weakness in setting of severely elevated BP, imaging confirms L thalamic infract 1. Acute CVA: MRI brain acute left thalamic infarct. Continue aspirin and statin INC CCB DRIP TODAY TTE with LVH, no mention of PFO; tele x 48 hours no afib. 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 Hypertensive emergency. Transitioned now to PO meds 3. Dyslipidemia. Continue statin prophx: SQH/SCDs dispo planning in process Subjective 24 Hr Interval Summary Free Text/Dictation BP control remains suboptimal Exam/Review of Systems Vital Signs Vitals Vital Signs Date Time Temp Pulse Resp B/P Pulse Ox O2 Delivery O2 Flow Rate FiO2 02/01/17 08:08 98.6 76 18 160/95 99 01/31/17 13:26 Room Air 01/28/17 16:01 21 Intake and Output 01/31/17 01/31/17 02/01/17 15:00 23:00 07:00 Intake Total 480 ml 200 ml Output Total 300 ml 300 ml Balance 180 ml -100 ml Exam nad laying in bed no mrg lungs clear abd soft no rashes Results Result Diagram: 02/01/17 0815 02/01/17 0815 Results 24 hrs Laboratory Tests Test 02/01/17 08:15 02/01/17 11:20 White Blood Count 7.6 # Red Blood Count 4.63 L Hemoglobin 14.7 Hematocrit 42.0 Mean Corpuscular Volume 90.7 Mean Corpuscular Hemoglobin 31.7 Mean Corpuscular Hemoglobin Concent 35.0 Red Cell Distribution Width 12.7 Platelet Count 188 Mean Platelet Volume 9.9 Neutrophils % 60.5 Lymphocytes % 24.2 Monocytes % 12.0 H Eosinophils % 2.4 Basophils % 0.5 Nucleated Red Blood Cells % 0.0 Neutrophils # 4.6 Lymphocytes # 1.9 Monocytes # 0.9 Eosinophils # 0.2 Basophils # 0.0 Nucleated Red Blood Cells # 0.0 Sodium Level 140 Potassium Level 3.5 Chloride Level 107 Carbon Dioxide Level 25 Anion Gap 12 Blood Urea Nitrogen 24 H Creatinine 1.15 Glucose Level 97 Calcium Level 9.4 Lab Scanned Report REFERENCE LAB Medications Medications Current Medications Ondansetron HCl (Zofran Inj) 4 mg Q6H PRN IV NAUSEA AND/OR VOMITING; Start 07/03 at 18:00 Acetaminophen (Tylenol Tab) 650 mg Q6H PRN PO PAIN LEVEL 1-3 OR FEVER; Start at 18:00 Acetaminophen/ Hydrocodone Bitart ([place] (5/325)) 1 tab Q6H PRN PO MODERATE PAIN LEVEL 4-6; Start 01/25/17 at 18:00 Docusate Sodium (Colace) 100 mg Q12H PRN PO CONSTIPATION Last administered on 09:47; Admin Dose 100 MG; Start 01/25/17 at 18:00 Magnesium Hydroxide (Milk Of Mag) 30 ml DAILY PRN PO CONSTIPATION; Start at 18:00 Sodium Biphosphate/ Sodium Phosphate (Fleet Enema) 133 ml DAILY PRN [place] CONSTIPATION; Start 01/25/17 at 18:00 Nitroglycerin (Nitroglycerin (Sl Tab) 0.4 Mg) 1 tab Q5M PRN SL ANGINA; Start at 18:00 Atorvastatin Calcium (Lipitor) 80 mg HS PO Last administered on 01/31/17 20:05 ; Admin Dose 80 MG; Start 01/26/17 at 21:00 Carvedilol (Coreg) 12.5 mg BID PO Last administered on 02/01/17 08:50; Admin Dose 12.5 MG; Start 01/27/17 at 21:00 Aspirin (Halfprin) 81 mg DAILY PO Last administered on 02/01/17 08:50; Admin Dose 81 MG; Start 01/29/17 at 09:00 Clonidine (Catapres) 0.1 mg Q8 PRN PO ELEVATED BLOOD PRESSURE Last administered on 01/31/17 13:58; Admin Dose 0.1 MG; Start 01/29/17 at 12:00 Nifedipine (Procardia Xl) 120 mg DAILY PO ; Start 02/02/17 at 09:00 CLAUDIO ISABEL MD Feb 01, 2017 11:54
[2017-02-01] MEDS: ATORVASTATIN 80 MG TAB PO SCH (20:08)
[2017-02-02 01:32] VITALS: BP 159/93; PULSE 72
[2017-02-02 05:56] VITALS: BP 129/82; PULSE 66
[2017-02-02 08:19] VITALS: BP 161/95; RESP 20
[2017-02-02] MEDS: NIFEdipine (XL) 60 MG TAB PO SCH (08:57)
[2017-02-02] MEDS: ASPIRIN (EC) 81 MG TAB PO SCH (08:57)
[2017-02-02 10:03] VITALS: BP 146/93; PULSE 66
[2017-02-02 10:15] LABS: ADD SCAN DIFF NO
[2017-02-02 10:21] LABS: BASOPHIL # 0.1 10^3/ul (0.0-0.1); BASOPHILS % 0.9 % (0.0-2.0); EOSINOPHILS # 0.2 10^3/ul (0.0-0.5); EOSINOPHILS % 3.7 % (0.0-7.0); HEMATOCRIT 44.3 % (42.0-52.0); HEMOGLOBIN 15.5 g/dl (14.0-18.0); LYMPHOCYTES % 31.2 % (15.0-51.0); MEAN CORPUSCULAR HEMOGLOBIN 31.5 pg (29.0-33.0); MEAN PLATELET VOLUME 10.3 fl (7.4-10.4); MONOCYTE # 0.7 10^3/ul (0.3-0.9); MONOCYTES % 10.6 % (0.0-11.0); NEUTROPHIL # 3.5 10^3/ul (1.6-7.5); NEUTROPHILS % 53.3 % (39.0-77.0); PLATELET COUNT 249 10^3/UL (140-415); RED BLOOD COUNT 4.92 10^6/ul (4.70-6.10); RED CELL DISTRIBUTION WIDTH 12.2 % (11.5-14.5); WHITE BLOOD COUNT 6.5 10^3/ul (4.8-10.8)
[2017-02-02 10:39] LABS: CALCIUM 9.8 mg/dl (8.4-10.2); CREATININE 1.11 mg/dl (0.61-1.24); POTASSIUM 4.2 mmol/L (3.5-5.1)
--- NOTE | 2017-02-02 16:05 | PN ---
Date/Time of Note Date/Time of Note DATE: 02/02/17 TIME: 16:02 Assessment/Plan VTE Prophylaxis VTE Prophylaxis Intervention: LMWH Lines/Catheters IV [facility] Type (from [facility] Saline Lock Urinary Cath still in place: No Assessment/Plan Assessment/Plan 1. Acute CVA: MRI brain acute left thalamic infarct. - cont meds, including statin and anti-platelets - need acute rehab per PT. order has been placed already for rehab eval 2. Hypertensive emergency: bP better controlled now 3. Dyslipidemia. Continue statin prophx: SQH/SCDs dispo to acute rehab Subjective 24 Hr Interval Summary Free Text/Dictation pt with continued right sided weakness Exam/Review of Systems Vital Signs Vitals Vital Signs Date Time Temp Pulse Resp B/P Pulse Ox O2 Delivery O2 Flow Rate FiO2 02/02/17 10:03 66 146/93 02/02/17 08:19 97.6 20 99 01/31/17 13:26 Room Air Intake and Output 02/01/17 02/01/17 02/02/17 15:00 23:00 07:00 Intake Total 1040 ml 900 ml Output Total 500 ml 600 ml Balance 540 ml 300 ml Exam Constitutional: alert, oriented, well developed Head: atraumatic, normocephalic Eyes: EOMI, PERRL Respiratory: clear to auscultation, normal air movement Cardiovascular: nl pulses, regular rate and rhythm Gastrointestinal: non-tender, soft Extremities: other (right sided upper and lower ext weaknness) Results Result Diagram: 02/02/17 0935 02/02/17 0935 Results 24 hrs Laboratory Tests Test 02/02/17 09:35 White Blood Count 6.5 Red Blood Count 4.92 Hemoglobin 15.5 Hematocrit 44.3 Mean Corpuscular Volume 90.0 Mean Corpuscular Hemoglobin 31.5 Mean Corpuscular Hemoglobin Concent 35.0 Red Cell Distribution Width 12.2 Platelet Count 249 # Mean Platelet Volume 10.3 Neutrophils % 53.3 Lymphocytes % 31.2 Monocytes % 10.6 Eosinophils % 3.7 Basophils % 0.9 Nucleated Red Blood Cells % 0.0 Neutrophils # 3.5 Lymphocytes # 2.0 Monocytes # 0.7 Eosinophils # 0.2 Basophils # 0.1 Nucleated Red Blood Cells # 0.0 Sodium Level 140 Potassium Level 4.2 Chloride Level 102 Carbon Dioxide Level 29 Anion Gap 13 Blood Urea Nitrogen 24 H Creatinine 1.11 Glucose Level 119 Calcium Level 9.8 Medications Medications Current Medications Ondansetron HCl (Zofran Inj) 4 mg Q6H PRN IV NAUSEA AND/OR VOMITING; Start 07/03 at 18:00 Acetaminophen (Tylenol Tab) 650 mg Q6H PRN PO PAIN LEVEL 1-3 OR FEVER; Start at 18:00 Acetaminophen/ Hydrocodone Bitart ([place] (5/325)) 1 tab Q6H PRN PO MODERATE PAIN LEVEL 4-6; Start 01/25/17 at 18:00 Docusate Sodium (Colace) 100 mg Q12H PRN PO CONSTIPATION Last administered on 09:47; Admin Dose 100 MG; Start 01/25/17 at 18:00 Magnesium Hydroxide (Milk Of Mag) 30 ml DAILY PRN PO CONSTIPATION; Start at 18:00 Sodium Biphosphate/ Sodium Phosphate (Fleet Enema) 133 ml DAILY PRN [place] CONSTIPATION; Start 01/25/17 at 18:00 Nitroglycerin (Nitroglycerin (Sl Tab) 0.4 Mg) 1 tab Q5M PRN SL ANGINA; Start at 18:00 Atorvastatin Calcium (Lipitor) 80 mg HS PO Last administered on 02/01/17 20:08 ; Admin Dose 80 MG; Start 01/26/17 at 21:00 Carvedilol (Coreg) 12.5 mg BID PO Last administered on 02/02/17 08:57; Admin Dose 12.5 MG; Start 01/27/17 at 21:00 Aspirin (Halfprin) 81 mg DAILY PO Last administered on 02/02/17 08:57; Admin Dose 81 MG; Start 01/29/17 at 09:00 Clonidine (Catapres) 0.1 mg Q8 PRN PO ELEVATED BLOOD PRESSURE Last administered on 02/01/17 18:24; Admin Dose 0.1 MG; Start 01/29/17 at 12:00 Nifedipine (Procardia Xl) 120 mg DAILY PO Last administered on 02/02/17 08:57 ; Admin Dose 120 MG; Start 02/02/17 at 09:00 JOSIE NAPIER MD Feb 02, 2017 16:05
[2017-02-02 19:21] VITALS: BP 160/94; RESP 18
[2017-02-02] MEDS: ATORVASTATIN 80 MG TAB PO SCH (21:35)
[2017-02-03 08:01] VITALS: BP 172/102; RESP 18
[2017-02-03] MEDS: NIFEdipine (XL) 60 MG TAB PO SCH (08:16)
[2017-02-03] MEDS: ASPIRIN (EC) 81 MG TAB PO SCH (08:16)
[2017-02-03 10:36] VITALS: BP 145/90
[2017-02-03 19:32] VITALS: BP 169/96; RESP 18
[2017-02-03] MEDS: ATORVASTATIN 80 MG TAB PO SCH (20:24)
[2017-02-03 21:38] VITALS: BP 160/92
[2017-02-03 22:15] VITALS: BP 141/86; PULSE 69
--- NOTE | 2017-02-03 23:56 | PN ---
Date/Time of Note Date/Time of Note DATE: 02/03/17 TIME: 23:55 Assessment/Plan VTE Prophylaxis VTE Prophylaxis Intervention: SCD's Lines/Catheters IV Catheter Type (from Nrsg): Saline Lock Urinary Cath still in place: No Assessment/Plan Assessment/Plan 1. Acute CVA: MRI brain acute left thalamic infarct. - cont meds, including statin and anti-platelets - need acute rehab per PT. order has been placed already for rehab eval 2. Hypertensive emergency: bP better controlled now 3. Dyslipidemia. Continue statin prophx: SQH/SCDs dispo to acute rehab Subjective 24 Hr Interval Summary Free Text/Dictation still with left sided weakness Exam/Review of Systems Vital Signs Vitals Vital Signs Date Time Temp Pulse Resp B/P Pulse Ox O2 Delivery O2 Flow Rate FiO2 02/03/17 21:38 160/92 02/03/17 19:32 97.8 80 18 96 01/31/17 13:26 Room Air Intake and Output 02/02/17 02/02/17 02/03/17 14:59 22:59 06:59 Intake Total 720 ml 1060 ml Output Total 1250 ml Balance 720 ml -190 ml Exam Constitutional: alert, oriented, well developed Head: atraumatic, normocephalic Eyes: EOMI, PERRL Respiratory: clear to auscultation, normal air movement Cardiovascular: nl pulses, regular rate and rhythm Gastrointestinal: non-tender, soft Extremities: other (right sided upper and lower ext weaknness) Results Result Diagram: 02/02/1735 02/02/17 0935 Medications Medications Current Medications Ondansetron HCl (Zofran Inj) 4 mg Q6H PRN IV NAUSEA AND/OR VOMITING; Start 07/03 at 18:00 Acetaminophen (Tylenol Tab) 650 mg Q6H PRN PO PAIN LEVEL 1-3 OR FEVER; Start at 18:00 Acetaminophen/ Hydrocodone Bitart ([place] (5/325)) 1 tab Q6H PRN PO MODERATE PAIN LEVEL 4-6; Start 01/25/17 at 18:00 Docusate Sodium (Colace) 100 mg Q12H PRN PO CONSTIPATION Last administered on t 09:47; Admin Dose 100 MG; Start 01/25/17 at 18:00 Magnesium Hydroxide (Milk Of Mag) 30 ml DAILY PRN PO CONSTIPATION; Start at 18:00 Sodium Biphosphate/ Sodium Phosphate (Fleet Enema) 133 ml DAILY PRN [place] CONSTIPATION; Start 01/25/17 at 18:00 Nitroglycerin (Nitroglycerin (Sl Tab) 0.4 Mg) 1 tab Q5M PRN SL ANGINA; Start at 18:00 Atorvastatin Calcium (Lipitor) 80 mg HS PO Last administered on 02/03/17 20:24 ; Admin Dose 80 MG; Start 01/26/17 at 21:00 Carvedilol (Coreg) 12.5 mg BID PO Last administered on 02/03/17 20:24; Admin Dose 12.5 MG; Start 01/27/17 at 21:00 Aspirin (Halfprin) 81 mg DAILY PO Last administered on 02/03/17 08:16; Admin Dose 81 MG; Start 01/29/17 at 09:00 Clonidine (Catapres) 0.1 mg Q8 PRN PO ELEVATED BLOOD PRESSURE Last administered on 02/03/17 08:16; Admin Dose 0.1 MG; Start 01/29/17 at 12:00 Nifedipine (Procardia Xl) 120 mg DAILY PO Last administered on 02/03/17 08:16 ; Admin Dose 120 MG; Start 02/02/17 at 09:00 JOSIE NAPIER MD Feb 03, 2017 23:56
[2017-02-04 08:15] VITALS: BP 141/91; RESP 16
[2017-02-04] MEDS: ASPIRIN (EC) 81 MG TAB PO SCH (08:28)
[2017-02-04] MEDS: NIFEdipine (XL) 60 MG TAB PO SCH (08:28)
[2017-02-04] MEDS ORDERED: IPRA3AMP HHN (14:50)
[2017-02-04] MEDS ORDERED: DOCU-216 PO (14:50)
[2017-02-04] MEDS ORDERED: CLON0.1T14 PO (14:50)
[2017-02-04] MEDS ORDERED: HYDR-3498 PO (14:50)
[2017-02-04] MEDS ORDERED: UDMOM PO (14:50)
[2017-02-04] MEDS ORDERED: ATOR80TA75 PO (14:50)
[2017-02-04] MEDS ORDERED: CARV12.579 PO (14:50)
[2017-02-04] MEDS ORDERED: NIT4 SL (14:50)
[2017-02-04] MEDS ORDERED: ACET325T40 PO (14:50)
[2017-02-04] MEDS ORDERED: NIFE60TA7 PO (14:50)
[2017-02-04] MEDS ORDERED: ASPI-664 PO (14:50)
--- NOTE | 2017-02-04 14:51 | PDOCDIS ---
Discharge Instructions CONDITION Patient Condition: Stable HOME CARE INSTRUCTIONS: Special Diet: LOW FAT, LOW CHOL ACTIVITY: Activity Restrictions: Slowly Increase Activity REFERRALS Other Referrals follow-up at SNF/REHAB JOSIE NAPIER MD Feb 04, 2017 14:51
== END 2017-02-04 16:25 | DRG 65 ==
LOC: E/R 15:24 → ICU 18:02 → TEL 01-28 16:41 → MS2 01-31 13:54
PROVIDERS: ADMIT Hospitalist; ATTEND Hospitalist
DX: I63.9 Cerebral infarction, unspecified (principal); I16.1 Hypertensive emergency; G81.91 Hemiplegia, unspecified affecting right dominant side; R29.810 Facial weakness; Z87.891 Personal history of nicotine dependence; E78.5 Hyperlipidemia, unspecified; I10 Essential (primary) hypertension; Z85.6 Personal history of leukemia; R00.0 Tachycardia, unspecified; Z91.14 Patient's other noncompliance with medication regimen; N28.9 Disorder of kidney and ureter, unspecified; R29.706 NIHSS score 6
CPT/HCPCS: 36415; 70450; 70544; 70549; 70551; 71010; 80048; 80053; 80061; 80307; 81001; 82550; 82553; 82962; 83036; 83735; 84100; 84439; 84443; 84484; 85025; 85610; 85730; 87081; 87086; 92507; 92523; 92610; 93005; 93306; 93880; 96365; 96366; 96375; 96376; 97003; 97110; 97161; 97167; 97530; 97535; J7030; J7070

== ENCOUNTER 2017-02-04 14:21 | Inpatient (IN) | payer MEDICAID ==
[~2017-02-04] VITALS: Ht 182.9 cm; Wt 84.0 kg
[2017-02-04] MEDS ORDERED: ASPI-664 PO (14:50)
[2017-02-04] MEDS ORDERED: UDMOM PO (14:50)
[2017-02-04] MEDS ORDERED: CLON0.1T14 PO (14:50)
[2017-02-04] MEDS ORDERED: ATOR80TA75 PO (14:50)
[2017-02-04] MEDS ORDERED: ACET325T40 PO (14:50)
[2017-02-04] MEDS ORDERED: CARV12.579 PO (14:50)
[2017-02-04] MEDS ORDERED: NIFE60TA7 PO (14:50)
[2017-02-04] MEDS ORDERED: HYDR-3498 PO (14:50)
[2017-02-04] MEDS ORDERED: DOCU-216 PO (14:50)
[2017-02-04] MEDS ORDERED: NIT4 SL (14:50)
[2017-02-04] MEDS ORDERED: IPRA3AMP HHN (14:50)
[2017-02-04 17:00] VITALS: BP 165/99; PULSE 74; RESP 20
[2017-02-04] MEDS ORDERED: DOCUSATE SODIUM 100 MG CAP PO PRN (17:30)
[2017-02-04] MEDS ORDERED: LACTULOSE 30ML CUP PO PRN (17:30)
[2017-02-04] MEDS ORDERED: MAGNESIUM HYDROXIDE 30ML CUP PO PRN (17:30)
[2017-02-04] MEDS ORDERED: NITROGLYCERIN (SL) 0.4 MG TAB SL PRN (17:30)
[2017-02-04] MEDS ORDERED: BISACODYL 10 MG SUPP PR PRN (17:30)
[2017-02-04] MEDS ORDERED: ALBUTEROL/IPRATROPIUM (NEB) 3 ML AMP HHN PRN (17:30)
[2017-02-04] MEDS ORDERED: NA PHOSPHATE/BIPHOS 133 ML ENEMA PR PRN (17:30)
[2017-02-04] MEDS ORDERED: ACETAMINOPHEN 325 MG TAB PO PRN ×2 (17:30)
[2017-02-04 17:34] LABS: ADD UMIC NO; UR ASCORBIC ACID NEGATIVE (NEGATIVE); UR BILIRUBIN (Dip) NEGATIVE (NEGATIVE); UR BLOOD (Dip) NEGATIVE (NEGATIVE); UR CLARITY CLEAR (CLEAR); UR COLOR STRAW (YELLOW); UR GLUCOSE (Dip) NEGATIVE (NEGATIVE); UR KETONES (Dip) NEGATIVE (NEGATIVE); UR LEUKOCYTE ESTERASE (Dip) NEGATIVE Leu/ul (NEGATIVE); UR NITRITE (Dip) NEGATIVE (NEGATIVE); UR SPECIFIC GRAVITY (Dip) 1.004 (1.003-1.030); UR TOTAL PROTEIN (Dip) NEGATIVE (NEGATIVE); UR UROBILINOGEN (Dip) NEGATIVE (NEGATIVE)
[2017-02-04 20:00] VITALS: BP 163/96; RESP 18
[2017-02-04] MEDS: SENNA TAB PO SCH (21:00)
[2017-02-04] MEDS: ATORVASTATIN 80 MG TAB PO SCH (21:16)
[2017-02-04] MEDS: DOCUSATE SODIUM 100 MG CAP PO SCH (21:16)
[2017-02-05 07:30] VITALS: BP 171/98; PULSE 82; RESP 18
[2017-02-05 08:00] LABS: ADD SCAN DIFF NO
[2017-02-05 08:04] LABS: BASOPHILS % 0.5 % (0.0-2.0); EOSINOPHILS # 0.2 10^3/ul (0.0-0.5); EOSINOPHILS % 3.6 % (0.0-7.0); HEMATOCRIT 39.6 % (42.0-52.0); LYMPHOCYTES # 2.1 10^3/ul (0.8-2.9); LYMPHOCYTES % 32.6 % (15.0-51.0); MEAN CORPUSCULAR HEMOGLOBIN 31.3 pg (29.0-33.0); MEAN CORPUSCULAR HGB CONC 35.4 g/dl (32.0-37.0); MEAN CORPUSCULAR VOLUME 88.4 fl (82.0-101.0); MEAN PLATELET VOLUME 10.2 fl (7.4-10.4); MONOCYTE # 0.8 10^3/ul (0.3-0.9); MONOCYTES % 12.4 % (0.0-11.0); NEUTROPHIL # 3.2 10^3/ul (1.6-7.5); NEUTROPHILS % 50.7 % (39.0-77.0); PLATELET COUNT 239 10^3/UL (140-415); RED BLOOD COUNT 4.48 10^6/ul (4.70-6.10); RED CELL DISTRIBUTION WIDTH 11.9 % (11.5-14.5); WHITE BLOOD COUNT 6.3 10^3/ul (4.8-10.8)
[2017-02-05] MEDS: DOCUSATE SODIUM 100 MG CAP PO SCH ×2 (08:12→21:53)
[2017-02-05] MEDS: ASPIRIN (EC) 81 MG TAB PO SCH (08:12)
[2017-02-05] MEDS: NIFEdipine (XL) 60 MG TAB PO SCH (08:13)
[2017-02-05 08:22] LABS: ALBUMIN 4.2 g/dl (3.3-4.9); ALBUMIN/GLOBULIN RATIO 1.68; BILIRUBIN,INDIRECT 0.9 mg/dl (0-1.1); BILIRUBIN,TOTAL 0.9 mg/dl (0.2-1.3); CALCIUM 9.4 mg/dl (8.4-10.2); CREATININE 1.05 mg/dl (0.61-1.24); POTASSIUM 3.8 mmol/L (3.5-5.1); TOTAL PROTEIN 6.7 g/dl (6.1-8.1)
[2017-02-05 09:28] VITALS: BP 155/99; PULSE 80
--- NOTE | 2017-02-05 10:53 | HP ---
DATE OF ADMISSION: 02/04/2017 PHYSICAL MEDICINE AND REHABILITATION HISTORY AND PHYSICAL / PHYSICIAN POST ADMISSION ASSESSMENT DATE OF VISIT: 02/05/2017 REHABILITATION IMPAIRMENT GROUP: Left brain CVA with right body involvement. CHIEF COMPLAINT: Impaired mobility, right-sided weakness. HISTORY OF PRESENT ILLNESS: This is a 56-year-old male, right-handed, with a past medical history significant for essential hypertension, previously noncompliant with medications, and a history of smoking, who presented to [facility] with progressively worsening right-sided weakness for the 2 days before hospitalization. On admission to the ER his systolic blood pressure was noted to be elevated in the 260 range and he was started on a Cardene drip. Initial head CT showed old lacunar infarcts. MRI brain was done which showed an acute left thalamic infarct in addition to old infarcts in the left basal ganglia, corpus callosum, right anastacia, right cerebellum, and right frontal periventricular white matter. The patient was admitted to the ICU for hypertensive emergency and was eventually weaned off the Cardene drip and transitioned to p.o. medications. The patient was followed by neurology and had further stroke workup and was recommended aspirin and statin for secondary stroke prevention. The patient did work with physical, occupational and speech therapy and was overall noted to have a significant decline in functional status from baseline independent status. Currently the patient is requiring minimal assistance for transfers, moderate assistance for gait of 5 feet with a Alf-walker, minimal assistance for upper body ADLs and moderate assistance for lower body ADLs. He was followed by speech therapy for dysphagia and has been upgraded to a mechanical soft diet with thin liquids. Due to the patient's ongoing medical comorbidities, continued need for close physician followup and significant functional impairments, the patient was thought to benefit from acute inpatient rehabilitation. PAST MEDICAL AND SURGICAL HISTORY: As stated in the history of present illness. FAMILY HISTORY: Reports noncontributory. SOCIAL HISTORY: Significant for a history of smoking. The patient reports he lives alone in a one-story home with no steps to enter. He does report that he has a friend that lives nearby. He states that his brother will be moving in with him after discharge to assist him as needed. PRIOR LEVEL OF FUNCTION: The patient reports being completely independent for all functional mobility and self-care ADLs. ALLERGIES: NO KNOWN DRUG ALLERGIES. MEDICATIONS ON ADMISSION: Reviewed in electronic medical record, includin. Aspirin. 2. Nifedipine. 3. Lipitor. 4. Coreg. 5. [place] 5/325 q.6 hours as needed. 6. DuoNeb as needed. 7. Clonidine as needed. LABORATORIES AND IMAGING: Reviewed in electronic medical records. Admission labs for today show WBC 6.3, hemoglobin 14, hematocrit 39.6, platelet count 239. Sodium 140, potassium 3.8, BUN 15, creatinine 1.05. LFTs are within normal limits. Urine appears clear, negative. Urine culture is pending. REVIEW OF SYSTEMS: A complete full review of systems was conducted and significant pertinence includes right-sided weakness. No paresthesias. Reports his last bowel movement was yesterday. Denies difficulty with urination. No headaches, no muscle spasms. Review of systems was otherwise negative. PHYSICAL EXAMINATION: VITAL SIGNS: Blood pressure 171/98, heart rate 82, respiratory rate 18, temperature 98.5 Fahrenheit. GENERAL: The patient is well-nourished, well-developed, awake, alert, in no acute distress. HEAD, EYES, EARS, NOSE, THROAT: Normocephalic, atraumatic. Mucous membranes moist. Sclera anicteric. Extraocular muscles intact. There is a right-sided slight right facial weakness with droop. NECK: Supple, nontender. RESPIRATORY: Respirations are nonlabored. Lungs clear to auscultation. No wheezing, no crackles. CARDIOVASCULAR: Regular rate and rhythm. Audible S1, S2. No distal edema. ABDOMEN: Soft, nontender. Bowel sounds present. No masses palpated. EXTREMITIES: Calves are soft, nontender. No cyanosis, no distal edema. SKIN: No rashes. There is some bruising in the extremities. PSYCHIATRIC: Affect and mood appear appropriate. NEUROLOGIC/MUSCULOSKELETAL EXAMINATION: The patient is awake, alert, in no acute distress. He is oriented to self, hospital, month, and year. There are no significant word finding difficulties noted. The patient is able to follow simple commands. Extraocular muscles are intact. Right-sided facial droop. Facial sensation intact. Tongue protrudes midline. Sternocleidomastoid and trapezius strength grossly intact. Strength in the left upper and left lower extremities are intact, 5/5. Right upper extremity strength is 2 to 2+/5 in the right shoulder abduction, elbow extension, elbow flexion, wrist extension and finger flexion. The patient is able to raise the right lower extremity off the bed with approximately 3-/5 in the right hip flexors and knee extensors, no movement noted distally in the right ankle. Reports sensation is intact to light touch. There is no significant increase in muscle tone. Finger to nose intact on the left, difficulty to perform on the right due to weakness. IMPRESSION: 1. Acute left thalamic ischemic cerebrovascular accident. 2. Impaired mobility, gait and balance. 3. Impaired self-care and ADLs. 4. Right dominant hemiparesis. 5. Dysphagia. 6. Hypertension, uncontrolled. 7. Dyslipidemia. PLAN: 1. The patient will be admitted for inpatient comprehensive interdisciplinary rehabilitation to address impairments and medical conditions listed above while assessing equipment needs and compensatory strategies with coordinated interdisciplinary services that will include physical, occupational and speech therapy and close monitoring and treatment with 24-hour rehabilitation nursing. This will be performed under the direction of a riveter. The patient is anticipated to be able to tolerate 3 hours daily of therapy for at least 5 out of the 7 days per week. 2. Start physical therapy for bed mobility, transfers, balance training, gait training, lower extremity strengthening, range of motion and coordination. 3. Begin occupational therapies for activities of daily living, patient education, adaptive equipment evaluation, upper extremity strengthening, range of motion, coordination and functional transfers. 4. Speech therapy for dysphagia treatment and full cognitive evaluation. 5. Rehabilitation nursing to provide the patient education regarding current medications as they relate to medical illness. Monitor bowel and bladder programs, administer such programs and reinforce those with therapies, and monitor pain levels. 6. Dr. Schwab and associates to follow for management of medical comorbidities. 7. For hypertension, internal medicine is medically managing. Medications to be adjusted further as needed. 8. For secondary stroke prevention, continue aspirin and statin per neurology recommendations REHABILITATION GOALS: Improve bed mobility, transfers, and self-care ADLs to standby assistance level and gait to at least a minimal assistance level, with assistive devices and adaptive equipment as needed. ESTIMATED LENGTH OF STAY: Approximately 14 days. His case will be discussed with the weekly interdisciplinary conference. Anticipated disposition is to home with family support. PROGNOSIS: At the current time, this inpatient hospital rehabilitation stay is medically necessary to achieve important health and functional goals. The patient requires frequent physician visits, 24-hour rehabilitation nursing and a coordinated intensive rehabilitation program as described above to address complex medical, nursing and rehabilitation needs. The patient has a good prognosis for benefiting from this program and returning to home and community. REHABILITATION PHYSICIAN POST-ADMISSION ASSESSMENT REVIEW: I have had the opportunity to examine the patient within 24 hours of admission and have reviewed the preadmission assessment and find it consistent with my examination and evaluation of the patient. I confirm that this patient is appropriate for admission and treatment in this inpatient rehabilitation hospital and needs intense interdisciplinary rehabilitation care and is expected to achieve meaningful goals within a reasonable period of time that are consistent with the planned discharge disposition, as noted above. Dictated By: BUD HARRISON MD, RA/DM Conf#: [id number] DID#: [id number] PEDRO
[2017-02-05] MEDS ORDERED: VALSARTAN 80 MG TAB PO ONE (14:00)
--- NOTE | 2017-02-05 14:20 | HP ---
DATE OF ADMISSION: 02/04/2017 ADMITTING DIAGNOSIS: Left cerebrovascular accident. Patient admitted for rehabilitation. HISTORY OF PRESENT ILLNESS: The patient is a pleasant 56-year-old white male who was being transfer red from [facility] for further rehabilitation after the patient was admitted ther for acute CVA involving the left thalamic infarct. The patient, however, has progressed significa ntly well and denies any significant residual neurological deficit. By the time I saw him, the bridgett ent is completely awake, alert, denies any muscular weakness, any dizziness, any gait disturbances. PAST MEDICAL HISTORY: History of hypertension and hyperlipidemia as well as arthritis. CURRENT MEDICATIONS: 1. Aspirin. 2. Nifedipine. 3. Lipitor. 4. Coreg. 5. [place]. 6. DuoNeb as needed. 7. Clonidine as needed. All doses were reviewed. ALLERGIES: NONE. SOCIAL HISTORY: The patient never smoked. No history of alcohol or drug abuse. FAMILY HISTORY: Noncontributory. OCCUPATIONAL HISTORY: Currently on disability. REVIEW OF SYSTEMS: Denies any headache, seizures, visual changes, sinus symptoms, postnasal drip, d ysphagia, odynophagia, any neurological weakness, any gait disturbances, any GI or urinary symptoms, any edema, orthopnea, PND. PHYSICAL EXAMINATION: GENERAL: Middle-aged male, awake, alert, currently in no distress. VITAL SIGNS: Temperature is 98.5 degrees Fahrenheit, heart rate of 82 per minute, blood pressure 15 5/92, respiratory rate is 18 per minute, O2 sat 98% on room air. HEENT: Supple neck, no JVD, no lymphadenopathy, midline trachea, no thyromegaly. Pharynx is clear, no neck bruits. Patient has fair dentition. CHEST: Clear to auscultation. HEART: S1, S2 audible. No murmurs, regular rhythm. ABDOMEN: Soft, nontender, nondistended. Bowel sounds audible. EXTREMITIES: No peripheral edema. Pulses 2+ bilaterally. NEUROLOGIC: No focal deficits. LABORATORY DATA: Today, white count 6.3, hemoglobin 14, platelet count of 239. CMP panel is within normal limits. Medications as mentioned above. ASSESSMENT: 1. Patient admitted for cerebrovascular accident involving the left thalamus, with no significant n eurological deficits. 2. History of hypertension. RECOMMENDATIONS AND PLAN: 1. Continue current treatment. 2. Add Diovan 40 mg daily. Dictated By: CHERELLE HAHN/DM Conf#: [id number] DID#: [id number]
[2017-02-05 14:45] VITALS: BP 150/90; PULSE 71
[2017-02-05 19:47] VITALS: BP 141/91; RESP 18
[2017-02-05] MEDS: SENNA TAB PO SCH (21:00)
[2017-02-05] MEDS: ATORVASTATIN 80 MG TAB PO SCH (21:53)
[2017-02-06 08:00] VITALS: BP 175/95; RESP 18
[2017-02-06] MEDS: NIFEdipine (XL) 60 MG TAB PO SCH (09:18)
[2017-02-06] MEDS: ASPIRIN (EC) 81 MG TAB PO SCH (09:19)
[2017-02-06] MEDS: DOCUSATE SODIUM 100 MG CAP PO SCH ×2 (09:19→20:15)
--- NOTE | 2017-02-06 11:03 | PN ---
DATE: 02/06/2017 MEDICINE PROGRESS NOTE SUBJECTIVE: The patient is stable. The patient denies any shortness of breath, chest pain, difficu lty swallowing. According to him, the right hemiparesis is improving. The patient also is having l ess difficulty with ambulation. PHYSICAL EXAMINATION: GENERAL: Middle-aged male, awake, alert, currently in no distress. VITAL SIGNS: Temperature is 98 degrees Fahrenheit, respiratory rate is 18 per minute, blood pressur e is 130/70, heart rate 80 per minute, O2 saturation 96% on room air. HEENT/NECK: Supple neck. No JVD. No lymphadenopathy. Midline trachea. No thyromegaly. Pharynx is clear. No neck bruits. The patient has fair dentition. CHEST: Clear to auscultation. HEART: S1, S2 audible. No murmurs. Regular rhythm. ABDOMEN: Soft, nontender, nondistended. Bowel sounds audible. EXTREMITIES: No peripheral edema. CENTRAL NERVOUS SYSTEM: The patient has right hemiparesis; however, there is improvement in right u pper extremity strength and movement. MEDICATIONS: Reviewed. ASSESSMENT: 1. The patient was admitted for cerebrovascular accident involving the left thalamus with right hem iparesis with interval improvement. 2. History of hypertension. PLAN: Continue current treatment. The patient is responding well to current treatment regimen. Dictated By: CHERELLE HAHN/DM Conf#: [id number] DID#: [id number]
--- NOTE | 2017-02-06 11:03 | PN ---
Date/Time of Note Date/Time of Note DATE: 02/06/17 TIME: 10:56 Assessment/Plan VTE Prophylaxis VTE Prophylaxis Intervention: other (ASA) Lines/Catheters IV Catheter Type (from Nrsg): Saline Lock Assessment/Plan Assessment/Plan 1. Acute left thalamic ischemic cerebrovascular accident, with R dominant hemiparesis, impaired mobility/gait/ADLs/cognition, dysphagia. Continue PT/OT/ ST. Secondary stroke prevention per neurology. Min assist for rolling and supine <>sit. 2. Hypertension. BP has been elevated, internal medicine adjusting regimen. 3. Dyslipidemia. Continue statin. 4. Left great toe pain. Clinically appears to be acute gout. Will also order uric acid level and start treatment per internal medicine. Subjective 24 Hr Interval Summary Free Text/Dictation Rehab progress note Subjective: Reports intermittent pain in left great toe. Denies prior history of gout. ROS: Denies chills, no chest pain, no abdominal pain, no shortness of breath, no nausea, no vomiting. Exam/Review of Systems Vital Signs Vitals Vital Signs Date Time Temp Pulse Resp B/P Pulse Ox O2 Delivery O2 Flow Rate FiO2 02/06/17 08:00 98.5 75 18 175/95 96 02/05/17 07:30 Room Air Intake and Output 02/05/17 02/05/17 02/06/17 15:00 23:00 07:00 Intake Total 520 ml 550 ml Output Total 650 ml 900 ml Balance -130 ml -350 ml Exam General: Awake, alert, no acute distress CV: Regular rate, s1s2 Lungs: Clear to auscultation, no wheezing Abdomen soft, nontender, +bowel sounds Extremities without cyanosis, left first MTP joint with tenderness to palpation , redness and some swelling Neuro: Right sided hemiparesis stable. Follows simple commands. Results Result Diagram: 02/05/1761902/05/17619 Medications Medications Current Medications Docusate Sodium (Colace) 100 mg BID PO Last administered on 02/06/17t 09:19; Admin Dose 100 MG; Start 02/04/17 at 21:00 Senna (Senokot) 1 tab QHS PO ; Start 02/04/17 at 21:00 Acetaminophen (Tylenol Tab) 650 mg Q4H PRN PO PAIN; Start 02/04/17 at 17:30 Bisacodyl (Dulcolax Supp) 10 mg DAILY PRN [place] CONSTIPATION; Start 02/04/17 at 17 :30 Magnesium Hydroxide (Milk Of Mag) 30 ml BID PRN PO CONSTIPATION; Start at 17:30 Lactulose (Enulose) 20 gm DAILY PRN PO CONSTIPATION; Start 02/04/17 at 17:30 Acetaminophen (Tylenol Tab) 650 mg Q6H PRN PO PAIN LEVEL 1-3 OR FEVER; Start at 17:30 Acetaminophen/ Hydrocodone Bitart ([place] (5/325)) 1 tab Q6H PRN PO MODERATE PAIN LEVEL 4-6; Start 02/04/17 at 17:30 Docusate Sodium (Colace) 100 mg Q12H PRN PO CONSTIPATION; Start 02/04/17 at 17: 30 Sodium Biphosphate/ Sodium Phosphate (Fleet Enema) 133 ml DAILY PRN [place] CONSTIPATION; Start 02/04/17 at 17:30 Nitroglycerin (Nitroglycerin (Sl Tab) 0.4 Mg) 1 tab Q5M PRN SL ANGINA; Start at 17:30 Atorvastatin Calcium (Lipitor) 80 mg HS PO Last administered on 02/05/17 21:53 ; Admin Dose 80 MG; Start 02/04/17 at 21:00 Carvedilol (Coreg) 12.5 mg BID PO Last administered on 02/06/17 09:19; Admin Dose 12.5 MG; Start 02/04/17 at 21:00 Aspirin (Halfprin) 81 mg DAILY PO Last administered on 02/06/17 09:19; Admin Dose 81 MG; Start 02/05/17 at 09:00 Clonidine (Catapres) 0.1 mg Q8 PRN PO ELEVATED BLOOD PRESSURE; Start 02/04/17 at 17:30 Nifedipine (Procardia Xl) 120 mg DAILY PO Last administered on 02/06/17 09:18 ; Admin Dose 120 MG; Start 02/05/17 at 09:00 BUD HARRISON Feb 06, 2017 11:03
[2017-02-06 20:00] VITALS: BP 152/88; RESP 18
[2017-02-06] MEDS: ATORVASTATIN 80 MG TAB PO SCH (20:14)
[2017-02-06] MEDS: SENNA TAB PO SCH (20:15)
[2017-02-07 07:30] VITALS: BP 132/81; RESP 18
[2017-02-07] MEDS: ASPIRIN (EC) 81 MG TAB PO SCH (08:58)
[2017-02-07] MEDS: NIFEdipine (XL) 60 MG TAB PO SCH (08:58)
[2017-02-07] MEDS: DOCUSATE SODIUM 100 MG CAP PO SCH ×2 (08:58→20:42)
[2017-02-07 09:00] VITALS: BP 160/97; PULSE 78; RESP 16
--- NOTE | 2017-02-07 10:43 | PN ---
Date/Time of Note Date/Time of Note DATE: 02/07/17 TIME: 10:38 Assessment/Plan VTE Prophylaxis VTE Prophylaxis Intervention: ambulation, other (ASA) Lines/Catheters IV Catheter Type (from Nrs): [place] Lock Urinary Cath still in place: No Assessment/Plan Assessment/Plan 1. Acute left thalamic ischemic cerebrovascular accident, with R dominant hemiparesis, impaired mobility/gait/ADLs/cognition, dysphagia. Continue PT/OT/ ST. Modified diet per ST. Continue secondary stroke prevention per neurology. Stand by assist for grooming. 2. Hypertension. BP intermittently elevated. Managed per internal medicine. 3. Dyslipidemia. Continue statin. 4. Left great toe pain. Suspect likely gout, though uric acid level within normal limits. Management per internal medicine. Subjective 24 Hr Interval Summary Free Text/Dictation Rehab progress note Subjective/History: Nursing reports no acute overnight events. Patient reports mild/moderate pain in left great toe, no new changes. ROS: Denies chest pain, no shortness of breath, no abdominal pain, no nausea, no vomiting, no chills. Denies headache or dizziness. Exam/Review of Systems Vital Signs Vitals Vital Signs Date Time Temp Pulse Resp B/P Pulse Ox O2 Delivery O2 Flow Rate FiO2 02/07/17 09:00 78 16 160/97 97 Room Air 02/06/17 20:00 98.2 Intake and Output 02/06/17 02/06/17 02/07/17 15:00 23:00 07:00 Intake Total 1200 ml 600 ml 360 ml Output Total 200 ml 600 ml 800 ml Balance 1000 ml 0 ml -440 ml Exam General: Awake, alert, no acute distress CV: Regular rate, s1s2 Lungs: Clear to auscultation, no wheezing or crackles Abdomen soft, nontender, +bowel sounds Extremities without cyanosis, no new swelling Neuro: No new focal changes. Right sided hemiparesis stable. Follows simple commands. Results Result Diagram: 02/05/1761902/05/17619 Results 24 hrs Laboratory Tests Test 02/06/17 14:37 Uric Acid 7.1 Medications Medications Current Medications Docusate Sodium (Colace) 100 mg BID PO Last administered on 02/07/17t 08:58; Admin Dose 100 MG; Start 02/04/17 at 21:00 Senna (Senokot) 1 tab QHS PO Last administered on 02/06/17 20:15; Admin Dose 1 TAB; Start 02/04/17 at 21:00 Acetaminophen (Tylenol Tab) 650 mg Q4H PRN PO PAIN; Start 02/04/17 at 17:30 Bisacodyl (Dulcolax Supp) [address] CONSTIPATION; Start 02/04/17 at 17 :30 Magnesium Hydroxide (Milk Of Mag) 30 ml BID PRN PO CONSTIPATION; Start at 17:30 Lactulose (Enulose) 20 gm DAILY PRN [place] CONSTIPATION; Start 02/04/17 at 17:30 Acetaminophen (Tylenol Tab) 650 mg Q6H PRN PO PAIN LEVEL 1-3 OR FEVER; Start at 17:30 Acetaminophen/ Hydrocodone Bitart ([place] (5/325)) 1 tab Q6H PRN PO MODERATE PAIN LEVEL 4-6; Start 02/04/17 at 17:30 Docusate Sodium (Colace) 100 mg Q12H PRN PO CONSTIPATION; Start 02/04/17 at 17: 30 Sodium Biphosphate/ Sodium Phosphate (Fleet Enema) [address] CONSTIPATION; Start 02/04/17 at 17:30 Nitroglycerin (Nitroglycerin (Sl Tab) 0.4 Mg) 1 tab Q5M PRN [place] ANGINA; Start at 17:30 Atorvastatin Calcium (Lipitor) 80 mg HS PO Last administered on 02/06/17 20:14 ; Admin Dose 80 MG; Start 02/04/17 at 21:00 Carvedilol (Coreg) 12.5 mg BID PO Last administered on 02/07/17 08:58; Admin Dose 12.5 MG; Start 02/04/17 at 21:00 Aspirin (Halfprin) 81 mg DAILY PO Last administered on 02/07/17 08:58; Admin Dose 81 MG; Start 02/05/17 at 09:00 Clonidine (Catapres) 0.1 mg Q8 PRN PO ELEVATED BLOOD PRESSURE; Start 02/04/17 at 17:30 Nifedipine (Procardia Xl) 120 mg DAILY PO Last administered on 02/07/17 08:58 ; Admin Dose 120 MG; Start 02/05/17 at 09:00 BUD HARRISON Feb 07, 2017 10:43
[2017-02-07 10:53] VITALS: BP 141/82; PULSE 76; RESP 16
[2017-02-07] MEDS: HYDROCODONE/APAP (5/325) TAB PO PRN ×2 (11:18→20:42)
[2017-02-07] MEDS ORDERED: NAPROXEN 500 MG TAB PO PRN (12:30)
--- NOTE | 2017-02-07 12:37 | PN ---
DATE: 02/07/2017 INTERNAL MEDICINE FOLLOWUP SUBJECTIVE: Chart reviewed. The patient is complaining of left great toe swelling and pain. Blood pressure has also been noticed to be a little bit out of control despite starting Diovan. PHYSICAL EXAMINATION: VITAL SIGNS: Currently blood pressure 141/82, pulse 76, respirations 16, temperature 97.7. He is o n room air, saturating 96%. HEENT: Pupils are equal and reactive to light. Anicteric sclerae. NECK: Supple. No JVD noted, no cervical adenopathy noted, no carotid bruits heard. LUNGS: Fair breath sounds bilaterally. CARDIOVASCULAR: S1, S2 normal. ABDOMEN: Soft, nontender. No organomegaly or masses noted. EXTREMITIES: No clubbing, cyanosis, or edema noted. Left greater toe area slightly swollen, erythe matous and warm to touch. NEUROLOGIC: Right hemiparesis. IMPRESSION: 1. Status post cerebrovascular accident. 2. Right-sided weakness. 3. History of hypertension, so far uncontrolled. 4. Question if the patient has underlying gout, although uric acid is normal. PLAN: 1. Increase Diovan to 40 b.i.d. 2. Initiate Naprosyn 500 p.o. every 8. 3. Continue to monitor blood pressure. 4. Above discussed with nursing staff. Dictated By: JACOB AHMADI MD, MA/DM Conf#: [id number] DID#: [id number]
[2017-02-07 12:40] VITALS: BP 152/92; PULSE 76; RESP 18
[2017-02-07] MEDS: VALSARTAN 80 MG TAB PO SCH ×2 (12:40→20:43)
[2017-02-07 20:00] VITALS: BP 141/81; RESP 18
[2017-02-07] MEDS: ATORVASTATIN 80 MG TAB PO SCH (20:42)
[2017-02-07] MEDS: SENNA TAB PO SCH (20:42)
[2017-02-08 07:54] VITALS: BP 143/79; PULSE 68; RESP 18
[2017-02-08] MEDS: NIFEdipine (XL) 60 MG TAB PO SCH (08:02)
[2017-02-08] MEDS: ASPIRIN (EC) 81 MG TAB PO SCH (08:03)
[2017-02-08] MEDS: VALSARTAN 80 MG TAB PO SCH ×2 (08:03→20:19)
[2017-02-08] MEDS: DOCUSATE SODIUM 100 MG CAP PO SCH ×2 (08:03→20:18)
[2017-02-08 08:07] VITALS: BP 174/102; RESP 17
[2017-02-08 10:30] VITALS: BP 149/89; PULSE 68; RESP 16
--- NOTE | 2017-02-08 16:29 | PN ---
DATE: 02/08/2017 SUBJECTIVE: Chart reviewed. The patient on room air saturating 96%. The patient is still requirin g clonidine p.r.n. for blood pressure support. Despite decreasing the Diovan dose. PHYSICAL EXAMINATION: VITAL SIGNS: Blood pressure 149/89, pulse 68, respirations 16, temperature 97.6. HEENT: Pupils are equal and reactive to light. NECK: Supple, no JVD noted, no cervical adenopathy, no carotid bruits heard. LUNGS: Fair breath sounds bilaterally. CARDIOVASCULAR: S1, S2 normal. ABDOMEN: Soft, nontender. No organomegaly or masses noted. EXTREMITIES: No clubbing or cyanosis noted. Left greater toe area is slightly swollen. NEUROLOGICAL: Right hemiparesis. IMPRESSION: 1. Status post cerebrovascular accident. 2. Right-sided weakness. 3. History of hypertension. 4. Possible gouty arthritis. RECOMMENDATIONS: 1. Continue Diovan 40 b.i.d. 2. Naprosyn. 3. Clonidine p.r.n. 4. May have to adjust blood pressure meds more. 5. Above discussed with nursing staff. Dictated By: JACOB AHMADI MD, MA/DM Conf#: [id number] DID#: [id number]
[2017-02-08] MEDS: ATORVASTATIN 80 MG TAB PO SCH (20:19)
[2017-02-08] MEDS: HYDROCODONE/APAP (5/325) TAB PO PRN (20:20)
[2017-02-08] MEDS: SENNA TAB PO SCH (20:20)
[2017-02-08 20:39] VITALS: BP 144/85; RESP 18
[2017-02-09 07:30] VITALS: BP 181/94; RESP 18
[2017-02-09] MEDS: VALSARTAN 80 MG TAB PO SCH ×2 (08:52→20:50)
[2017-02-09] MEDS: DOCUSATE SODIUM 100 MG CAP PO SCH ×2 (08:52→20:50)
[2017-02-09] MEDS: ASPIRIN (EC) 81 MG TAB PO SCH (08:52)
[2017-02-09] MEDS: NIFEdipine (XL) 60 MG TAB PO SCH (08:53)
--- NOTE | 2017-02-09 12:16 | CONS ---
Date/Time of Note Date/Time of Note DATE: 02/09/17 TIME: 12:15 Consult Date/Type/Reason Admit Date/Time Feb 04, 2017 at 16:44 Initial Consult Date Objective Vital Signs Date Time Temp Pulse Resp B/P Pulse Ox O2 Delivery O2 Flow Rate FiO2 02/09/17 07:30 98.8 69 18 181/94 99 02/08/17 10:30 Room Air Intake and Output 02/08/17 02/08/17 02/09/17 15:00 23:00 07:00 Intake Total 150 ml 2180 ml 900 ml Output Total 250 ml 2350 ml 1080 ml Balance -100 ml -170 ml -180 ml INTERDISCIPLINARY TEAM CONFERENCE BOWEL- Cont BLADDER-Cont SKIN- intact OT- DRESSING-mod/max BATHING-mod/max TOILETING-mod/max PT- BED MOBILITY-mod TRANSFERS-mod AMBULATION-mod/max 20 feet W.C. MOBILITY SPEECH- COGNITION-min A/P- Interdisciplinary team conference held today. Please see interdisciplinary sheet. Working toward d.c. on 02/20 with post discharge follow up of physical therapy, occupational therapy. Results/Medications Result Diagram: 02/05/1761902/05/17 0620 Medications Current Medications Docusate Sodium (Colace) 100 mg BID PO Last administered on 02/09/17 08:52; Admin Dose 100 MG; Start 02/04/17 at 21:00 Senna (Senokot) 1 tab QHS PO Last administered on 02/08/17 20:20; Admin Dose 1 TAB; Start 02/04/17 at 21:00 Acetaminophen (Tylenol Tab) 650 mg Q4H PRN PO PAIN; Start 02/04/17 at 17:30 Bisacodyl (Dulcolax Supp) 10 mg DAILY PRN [place] CONSTIPATION; Start 02/04/17 at 17 :30 Magnesium Hydroxide (Milk Of Mag) 30 ml BID PRN PO CONSTIPATION; Start at 17:30 Lactulose (Enulose) 20 gm DAILY PRN PO CONSTIPATION; Start 02/04/17 at 17:30 Acetaminophen (Tylenol Tab) 650 mg Q6H PRN PO PAIN LEVEL 1-3 OR FEVER; Start at 17:30 Acetaminophen/ Hydrocodone Bitart ([place] (5/325)) 1 tab Q6H PRN PO MODERATE PAIN LEVEL 4-6 Last administered on 02/08/17 20:20; Admin Dose 1 TAB; Start at 17:30 Docusate Sodium (Colace) 100 mg Q12H PRN PO CONSTIPATION; Start 02/04/17 at 17: 30 Sodium Biphosphate/ Sodium Phosphate (Fleet Enema) 133 ml DAILY PRN [place] CONSTIPATION; Start 02/04/17 at 17:30 Nitroglycerin (Nitroglycerin (Sl Tab) 0.4 Mg) 1 tab Q5M PRN SL ANGINA; Start at 17:30 Atorvastatin Calcium (Lipitor) 80 mg HS PO Last administered on 02/08/17 20:19 ; Admin Dose 80 MG; Start 02/04/17 at 21:00 Carvedilol (Coreg) 12.5 mg BID PO Last administered on 02/09/17 08:52; Admin Dose 12.5 MG; Start 02/04/17 at 21:00 Aspirin (Halfprin) 81 mg DAILY PO Last administered on 02/09/17 08:52; Admin Dose 81 MG; Start 02/05/17 at 09:00 Nifedipine (Procardia Xl) 120 mg DAILY PO Last administered on 02/09/17 08:53 ; Admin Dose 120 MG; Start 02/05/17 at 09:00 Naproxen (Naprosyn) 500 mg Q8H PRN PO PAIN; Start 02/07/17 at 12:30 Valsartan (Diovan) 40 mg BID PO Last administered on 02/09/17 08:52; Admin Dose 40 MG; Start 02/07/17 at 12:30 Clonidine (Catapres) 0.1 mg Q8H PRN PO ELEVATED BLOOD PRESSURE; Start 02/08/17 at 13:00 DAYANARA GRESHAM MD Feb 09, 2017 12:16
[2017-02-09] MEDS: HYDROCODONE/APAP (5/325) TAB PO PRN (20:49)
[2017-02-09] MEDS: ATORVASTATIN 80 MG TAB PO SCH (20:50)
[2017-02-09] MEDS: SENNA TAB PO SCH (20:50)
--- NOTE | 2017-02-10 02:04 | RADRPT ---
PROCEDURE: Left foot x-ray CLINICAL INDICATION: Left foot pain, with reference marker directed towards the medial aspect of t he first metatarsal phalangeal joint. TECHNIQUE: 2 views left foot COMPARISON: None FINDINGS: Partially visualized meg fixator and to interference screws in the left tibia, without evident hardw are complication. Degenerative changes of the first metatarsal phalangeal joint with joint compartment narrowing and o verlying soft tissue swelling at the medial aspect of the joint. Remaining osseous structures are w ithout evident acute fracture dislocation. Demineralization limits evaluation of fine osseous detai l. Vascular calcifications. Soft tissues otherwise unremarkable. IMPRESSION: Mild degenerative changes at the first metatarsal phalangeal joint with joint compartment narrowing and overlying soft tissue swelling. RPTAT: [facility] Physician Damaris Date Time Electronically viewed and signed by Physician Damaris on 02/10/2017 02:04 RS/
[2017-02-10 07:42] VITALS: BP 166/94; RESP 18
[2017-02-10] MEDS: NIFEdipine (XL) 60 MG TAB PO SCH (08:43)
[2017-02-10] MEDS: ASPIRIN (EC) 81 MG TAB PO SCH (08:44)
[2017-02-10] MEDS: VALSARTAN 80 MG TAB PO SCH ×2 (08:44→20:52)
[2017-02-10] MEDS: DOCUSATE SODIUM 100 MG CAP PO SCH ×2 (08:44→20:49)
--- NOTE | 2017-02-10 11:26 | CONS ---
Date/Time of Note Date/Time of Note DATE: 02/10/17 TIME: 11:26 Consult Date/Type/Reason Admit Date/Time Feb 04, 2017 at 16:44 Subjective Comfortable Objective pulm-cta min assist transfer and ambulation Vital Signs Date Time Temp Pulse Resp B/P Pulse Ox O2 Delivery O2 Flow Rate FiO2 02/10/17 07:42 98.1 65 18 166/94 96 02/08/17 10:30 Room Air Intake and Output 02/09/17 02/09/17 02/10/17 15:00 23:00 07:00 Intake Total 960 ml 950 ml Output Total 520 ml 900 ml Balance 440 ml 50 ml Results/Medications Medications Current Medications Docusate Sodium (Colace) 100 mg BID PO Last administered on 02/10/17 08:44; Admin Dose 100 MG; Start 02/04/17 at 21:00 Senna (Senokot) 1 tab QHS PO Last administered on 02/09/17 20:50; Admin Dose 1 TAB; Start 02/04/17 at 21:00 Acetaminophen (Tylenol Tab) 650 mg Q4H PRN PO PAIN; Start 02/04/17 at 17:30 Bisacodyl (Dulcolax Supp) 10 mg DAILY PRN [place] CONSTIPATION; Start 02/04/17 at 17 :30 Magnesium Hydroxide (Milk Of Mag) 30 ml BID PRN PO CONSTIPATION; Start at 17:30 Lactulose (Enulose) 20 gm DAILY PRN PO CONSTIPATION; Start 02/04/17 at 17:30 Acetaminophen (Tylenol Tab) 650 mg Q6H PRN PO PAIN LEVEL 1-3 OR FEVER; Start at 17:30 Acetaminophen/ Hydrocodone Bitart ([place] (5/325)) 1 tab Q6H PRN PO MODERATE PAIN LEVEL 4-6 Last administered on 02/09/17 20:49; Admin Dose 1 TAB; Start at 17:30 Docusate Sodium (Colace) 100 mg Q12H PRN PO CONSTIPATION; Start 02/04/17 at 17: 30 Sodium Biphosphate/ Sodium Phosphate (Fleet Enema) 133 ml DAILY PRN [place] CONSTIPATION; Start 02/04/17 at 17:30 Nitroglycerin (Nitroglycerin (Sl Tab) 0.4 Mg) 1 tab Q5M PRN SL ANGINA; Start at 17:30 Atorvastatin Calcium (Lipitor) 80 mg HS PO Last administered on 02/09/17 20:50 ; Admin Dose 80 MG; Start 02/04/17 at 21:00 Carvedilol (Coreg) 12.5 mg BID PO Last administered on 02/10/17 08:44; Admin Dose 12.5 MG; Start 02/04/17 at 21:00 Aspirin (Halfprin) 81 mg DAILY PO Last administered on 02/10/17 08:44; Admin Dose 81 MG; Start 02/05/17 at 09:00 Nifedipine (Procardia Xl) 120 mg DAILY PO Last administered on 02/10/17 08:43 ; Admin Dose 120 MG; Start 02/05/17 at 09:00 Naproxen (Naprosyn) 500 mg Q8H PRN PO PAIN; Start 02/07/17 at 12:30 Valsartan (Diovan) 40 mg BID PO Last administered on 02/10/17 08:44; Admin Dose 40 MG; Start 02/07/17 at 12:30 Clonidine (Catapres) 0.1 mg Q8H PRN PO ELEVATED BLOOD PRESSURE; Start 02/08/17 at 13:00 Assessment/Plan Additional Assessment/Plan Rehab- Acute left thalamic ischemic cerebrovascular accident, with R dominant hemiparesis, impaired mobility/gait/ADLs/cognition, dysphagia. Continue rehab program Dysphagia-Modified diet per ST. Hypertension. BP intermittently elevated. Managed per internal medicine. Dyslipidemia. Continue statin. Functional Impact of comorbidity- monitor BP during therapy DAYANARA GRESHAM MD Feb 10, 2017 11:26
--- NOTE | 2017-02-10 12:37 | CONS ---
Date/Time of Note Date/Time of Note DATE: 02/10/17 TIME: 12:33 Assessment/Plan Assessment/Plan Additional Assessment/Plan Assessment and plan; 1. Patient admitted with right hemiparesis due to thalamic infarct. 2. Hypertension. Continue physical therapy. Increase Diovan to 80 mg twice daily. Consultation Date/Type/Reason Admit Date/Time Feb 04, 2017 at 16:44 Initial Consult Date Type of Consultation: Internal medicine 24 HR Interval Summary Free Text/Dictation Patient condition stable. Still complains of right hemiparesis. Denies any dysphagia or shortness of breath cough. General exam; middle-aged male, awake alert currently in no distress. Exam/Review of Systems Vital Signs Vitals Vital Signs Date Time Temp Pulse Resp B/P Pulse Ox O2 Delivery O2 Flow Rate FiO2 02/10/17 07:42 98.1 65 18 166/94 96 02/08/17 10:30 Room Air Intake and Output 02/09/17 02/09/17 02/10/17 15:00 23:00 07:00 Intake Total 960 ml 950 ml Output Total 520 ml 900 ml Balance 440 ml 50 ml Exam HEENT exam; supple neck, no JVD. No lymphadenopathy. Midline trachea. No thyromegaly. Pharynx is clear. Patient has fair dentition. Chest exam; clear to auscultation. S1-S2 audible, no murmurs. Regular rhythm. Abdomen examination; soft, no organomegaly. Bowel sounds are audible. Extremity exam; no peripheral edema. Pulses 2+ bilaterally. 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 Medications Medications Current Medications Docusate Sodium (Colace) 100 mg BID PO Last administered on 02/10/17 08:44; Admin Dose 100 MG; Start 02/04/17 at 21:00 Senna (Senokot) 1 tab QHS PO Last administered on 02/09/17 20:50; Admin Dose 1 TAB; Start 02/04/17 at 21:00 Acetaminophen (Tylenol Tab) 650 mg Q4H PRN PO PAIN; Start 02/04/17 at 17:30 Bisacodyl (Dulcolax Supp) 10 mg DAILY PRN [place] CONSTIPATION; Start 02/04/17 at 17 :30 Magnesium Hydroxide (Milk Of Mag) 30 ml BID PRN PO CONSTIPATION; Start at 17:30 Lactulose (Enulose) 20 gm DAILY PRN PO CONSTIPATION; Start 02/04/17 at 17:30 Acetaminophen (Tylenol Tab) 650 mg Q6H PRN PO PAIN LEVEL 1-3 OR FEVER; Start at 17:30 Acetaminophen/ Hydrocodone Bitart ([place] (5/325)) 1 tab Q6H PRN PO MODERATE PAIN LEVEL 4-6 Last administered on 02/09/17 20:49; Admin Dose 1 TAB; Start at 17:30 Docusate Sodium (Colace) 100 mg Q12H PRN PO CONSTIPATION; Start 02/04/17 at 17: 30 Sodium Biphosphate/ Sodium Phosphate (Fleet Enema) 133 ml DAILY PRN [place] CONSTIPATION; Start 02/04/17 at 17:30 Nitroglycerin (Nitroglycerin (Sl Tab) 0.4 Mg) 1 tab Q5M PRN SL ANGINA; Start at 17:30 Atorvastatin Calcium (Lipitor) 80 mg HS PO Last administered on 02/09/17 20:50 ; Admin Dose 80 MG; Start 02/04/17 at 21:00 Carvedilol (Coreg) 12.5 mg BID PO Last administered on 02/10/17 08:44; Admin Dose 12.5 MG; Start 02/04/17 at 21:00 Aspirin (Halfprin) 81 mg DAILY PO Last administered on 02/10/17 08:44; Admin Dose 81 MG; Start 02/05/17 at 09:00 Nifedipine (Procardia Xl) 120 mg DAILY PO Last administered on 02/10/17 08:43 ; Admin Dose 120 MG; Start 02/05/17 at 09:00 Naproxen (Naprosyn) 500 mg Q8H PRN PO PAIN; Start 02/07/17 at 12:30 Valsartan (Diovan) 40 mg BID PO Last administered on 02/10/17 08:44; Admin Dose 40 MG; Start 02/07/17 at 12:30 Clonidine (Catapres) 0.1 mg Q8H PRN PO ELEVATED BLOOD PRESSURE; Start 02/08/17 at 13:00 CHERELLE BASURTO Feb 10, 2017 12:37
[2017-02-10 20:00] VITALS: BP 130/78; RESP 16
[2017-02-10] MEDS: ATORVASTATIN 80 MG TAB PO SCH (20:49)
[2017-02-10] MEDS: SENNA TAB PO SCH (20:49)
[2017-02-10] MEDS: HYDROCODONE/APAP (5/325) TAB PO PRN (20:56)
[2017-02-11 07:38] VITALS: BP 191/98; PULSE 64
[2017-02-11 07:48] VITALS: BP 191/98; RESP 18
[2017-02-11] MEDS: ASPIRIN (EC) 81 MG TAB PO SCH (08:16)
[2017-02-11] MEDS: VALSARTAN 80 MG TAB PO SCH ×2 (08:16→20:22)
[2017-02-11] MEDS: NIFEdipine (XL) 60 MG TAB PO SCH (08:18)
[2017-02-11] MEDS: DOCUSATE SODIUM 100 MG CAP PO SCH ×2 (08:19→20:21)
[2017-02-11 09:46] VITALS: BP 154/82
--- NOTE | 2017-02-11 12:14 | CONS ---
Date/Time of Note Date/Time of Note DATE: 02/11/17 TIME: 12:12 Assessment/Plan Assessment/Plan Additional Assessment/Plan Assessment and plan; 1. P patient admitted with right hemiparesis due to thalamic infarct. With some clinical improvement. 2. Hypertension. Diovan was increased to 40 mg twice daily yesterday. Continue current treatment. Consultation Date/Type/Reason Admit Date/Time Feb 04, 2017 at 16:44 Type of Consultation: Internal medicine 24 HR Interval Summary Free Text/Dictation Patient condition stable. Patient reporting slight improvement in right upper and lower extremity strength. Denies any dysphagia, shortness of breath. General exam; middle-aged male, awake alert currently in no distress. Exam/Review of Systems Vital Signs Vitals Vital Signs Date Time Temp Pulse Resp B/P Pulse Ox O2 Delivery O2 Flow Rate FiO2 02/11/17 09:46 154/82 02/11/17 07:48 98.2 62 18 96 02/08/17 10:30 Room Air Intake and Output 02/10/17 02/10/17 02/11/17 15:00 23:00 07:00 Intake Total 1800 ml 600 ml 350 ml Output Total 650 ml 500 ml 950 ml Balance 1150 ml 100 ml -600 ml Exam HEENT exam; supple neck, no JVD. No lymphadenopathy. Midline trachea. No thyromegaly. Pharynx is clear. Patient has fair dentition. Pupils are midsize and reactive to light. Chest examined; clear to ulceration. S1-S2 audible, no murmurs. Regular rhythm. Abdomen examination; soft, no organomegaly. Bowel sounds audible. Extremity exam; no peripheral edema. Pulses 2+ bilaterally. RN SCHOOL examination; patient is stable right hemiparesis. Medications Medications Current Medications Docusate Sodium (Colace) 100 mg BID PO Last administered on 02/11/17 08:19; Admin Dose 100 MG; Start 02/04/17 at 21:00 Senna (Senokot) 1 tab QHS PO Last administered on 02/10/17 20:49; Admin Dose 1 TAB; Start 02/04/17 at 21:00 Acetaminophen (Tylenol Tab) 650 mg Q4H PRN PO PAIN; Start 02/04/17 at 17:30 Bisacodyl (Dulcolax Supp) 10 mg DAILY PRN [place] CONSTIPATION; Start 02/04/17 at 17 :30 Magnesium Hydroxide (Milk Of Mag) 30 ml BID PRN PO CONSTIPATION; Start at 17:30 Lactulose (Enulose) 20 gm DAILY PRN PO CONSTIPATION; Start 02/04/17 at 17:30 Acetaminophen (Tylenol Tab) 650 mg Q6H PRN PO PAIN LEVEL 1-3 OR FEVER; Start at 17:30 Acetaminophen/ Hydrocodone Bitart ([place] (5/325)) 1 tab Q6H PRN PO MODERATE PAIN LEVEL 4-6 Last administered on 02/10/17 20:56; Admin Dose 1 TAB; Start at 17:30 Docusate Sodium (Colace) 100 mg Q12H PRN PO CONSTIPATION; Start 02/04/17 at 17: 30 Sodium Biphosphate/ Sodium Phosphate (Fleet Enema) 133 ml DAILY PRN [place] CONSTIPATION; Start 02/04/17 at 17:30 Nitroglycerin (Nitroglycerin (Sl Tab) 0.4 Mg) 1 tab Q5M PRN SL ANGINA; Start at 17:30 Atorvastatin Calcium (Lipitor) 80 mg HS PO Last administered on 02/10/17 20:49 ; Admin Dose 80 MG; Start 02/04/17 at 21:00 Carvedilol (Coreg) 12.5 mg BID PO Last administered on 02/11/17 08:18; Admin Dose 12.5 MG; Start 02/04/17 at 21:00 Aspirin (Halfprin) 81 mg DAILY PO Last administered on 02/11/17 08:16; Admin Dose 81 MG; Start 02/05/17 at 09:00 Nifedipine (Procardia Xl) 120 mg DAILY PO Last administered on 02/11/17 08:18 ; Admin Dose 120 MG; Start 02/05/17 at 09:00 Naproxen (Naprosyn) 500 mg Q8H PRN PO PAIN; Start 02/07/17 at 12:30 Clonidine (Catapres) 0.1 mg Q8H PRN PO ELEVATED BLOOD PRESSURE Last administered on 02/11/17 07:37; Admin Dose 0.1 MG; Start 02/08/17 at 13:00 Valsartan (Diovan) 80 mg BID PO Last administered on 02/11/17 08:16; Admin Dose 80 MG; Start 02/10/17 at 21:00 CHERELLE BASURTO Feb 11, 2017 12:13
--- NOTE | 2017-02-11 13:04 | CONS ---
Date/Time of Note Date/Time of Note DATE: 02/11/17 TIME: 13:02 Consult Date/Type/Reason Admit Date/Time Feb 04, 2017 at 16:44 Type of Consultation: Internal medicine Subjective improving Objective pulm-cta abd-soft min assist Vital Signs Date Time Temp Pulse Resp B/P Pulse Ox O2 Delivery O2 Flow Rate FiO2 02/11/17 09:46 154/82 02/11/17 07:48 98.2 62 18 96 02/08/17 10:30 Room Air Intake and Output 02/10/17 02/10/17 02/11/17 15:00 23:00 07:00 Intake Total 1800 ml 600 ml 350 ml Output Total 650 ml 500 ml 950 ml Balance 1150 ml 100 ml -600 ml Results/Medications Medications Current Medications Docusate Sodium (Colace) 100 mg BID PO Last administered on 02/11/17 08:19; Admin Dose 100 MG; Start 02/04/17 at 21:00 Senna (Senokot) 1 tab QHS PO Last administered on 02/10/17 20:49; Admin Dose 1 TAB; Start 02/04/17 at 21:00 Acetaminophen (Tylenol Tab) 650 mg Q4H PRN PO PAIN; Start 02/04/17 at 17:30 Bisacodyl (Dulcolax Supp) 10 mg DAILY PRN [place] CONSTIPATION; Start 02/04/17 at 17 :30 Magnesium Hydroxide (Milk Of Mag) 30 ml BID PRN PO CONSTIPATION; Start at 17:30 Lactulose (Enulose) 20 gm DAILY PRN PO CONSTIPATION; Start 02/04/17 at 17:30 Acetaminophen (Tylenol Tab) 650 mg Q6H PRN PO PAIN LEVEL 1-3 OR FEVER; Start at 17:30 Acetaminophen/ Hydrocodone Bitart ([place] (5/325)) 1 tab Q6H PRN PO MODERATE PAIN LEVEL 4-6 Last administered on 02/10/17 20:56; Admin Dose 1 TAB; Start at 17:30 Docusate Sodium (Colace) 100 mg Q12H PRN PO CONSTIPATION; Start 02/04/17 at 17: 30 Sodium Biphosphate/ Sodium Phosphate (Fleet Enema) 133 ml DAILY PRN [place] CONSTIPATION; Start 02/04/17 at 17:30 Nitroglycerin (Nitroglycerin (Sl Tab) 0.4 Mg) 1 tab Q5M PRN SL ANGINA; Start at 17:30 Atorvastatin Calcium (Lipitor) 80 mg HS PO Last administered on 02/10/17 20:49 ; Admin Dose 80 MG; Start 02/04/17 at 21:00 Carvedilol (Coreg) 12.5 mg BID PO Last administered on 02/11/17 08:18; Admin Dose 12.5 MG; Start 02/04/17 at 21:00 Aspirin (Halfprin) 81 mg DAILY PO Last administered on 02/11/17 08:16; Admin Dose 81 MG; Start 02/05/17 at 09:00 Nifedipine (Procardia Xl) 120 mg DAILY PO Last administered on 02/11/17 08:18 ; Admin Dose 120 MG; Start 02/05/17 at 09:00 Naproxen (Naprosyn) 500 mg Q8H PRN PO PAIN; Start 02/07/17 at 12:30 Clonidine (Catapres) 0.1 mg Q8H PRN PO ELEVATED BLOOD PRESSURE Last administered on 02/11/17 07:37; Admin Dose 0.1 MG; Start 02/08/17 at 13:00 Valsartan (Diovan) 80 mg BID PO Last administered on 02/11/17 08:16; Admin Dose 80 MG; Start 02/10/17 at 21:00 Assessment/Plan Additional Assessment/Plan Rehab- Acute left thalamic ischemic cerebrovascular accident, with R dominant hemiparesis, impaired mobility/gait/ADLs/cognition, dysphagia. Continue PT/OT/ST. Dysphagia-Modified diet per ST. Hypertension. BP intermittently elevated. Managed per internal medicine. Dyslipidemia. Continue statin. Functional Impact of comorbidity- monitor BP during therapy DAYANARA GRESHAM MD Feb 11, 2017 13:04
[2017-02-11 20:00] VITALS: BP 144/86; RESP 18
[2017-02-11] MEDS: HYDROCODONE/APAP (5/325) TAB PO PRN (20:21)
[2017-02-11] MEDS: ATORVASTATIN 80 MG TAB PO SCH (20:21)
[2017-02-11] MEDS: SENNA TAB PO SCH (20:21)
[2017-02-12 07:30] VITALS: BP 173/96; RESP 18
[2017-02-12] MEDS: ASPIRIN (EC) 81 MG TAB PO SCH (09:12)
[2017-02-12] MEDS: VALSARTAN 80 MG TAB PO SCH ×2 (09:13→21:29)
[2017-02-12] MEDS: DOCUSATE SODIUM 100 MG CAP PO SCH ×2 (09:13→21:27)
[2017-02-12] MEDS: NIFEdipine (XL) 60 MG TAB PO SCH (09:14)
--- NOTE | 2017-02-12 10:23 | CONS ---
Date/Time of Note Date/Time of Note DATE: 02/12/17 TIME: 10:21 Assessment/Plan Assessment/Plan Additional Assessment/Plan Assessment and plan; next 1. Patient admitted for thalamic infarct causing right hemiparesis in physical therapy with interval improvement. 2. Hypertension. Continue current treatment. Diovan dosing increased to 80 mg twice daily. Consultation Date/Type/Reason Admit Date/Time Feb 04, 2017 at 16:44 Type of Consultation: Internal medicine 24 HR Interval Summary Free Text/Dictation Patient condition is stable. Denies any shortness or, chest pain, dysphagia. Patient's gait is improving. I also talked with the physical therapist and according to the patient condition is improving gradually.. General examination; middle-aged male, awake alert currently in no distress. Exam/Review of Systems Vital Signs Vitals Vital Signs Date Time Temp Pulse Resp B/P Pulse Ox O2 Delivery O2 Flow Rate FiO2 02/11/17 20:00 98.6 75 18 144/86 97 02/08/17 10:30 Room Air Intake and Output 02/11/17 02/11/17 02/12/17 15:00 23:00 07:00 Intake Total 1200 ml 1080 ml 350 ml Output Total 450 ml 250 ml 550 ml Balance 750 ml 830 ml -200 ml Exam HEENT exam; supple neck, no JVD. No lymphadenopathy. Midline trachea. No thyromegaly. Pharynx is clear. No neck bruits. Patient has fair dentition. Pupils are midsize and reactive to light. Chest exam; clear to ulceration. S1-S2 audible, no murmurs. Regular rhythm. Abdomen exam; soft, no organomegaly. Bowel sounds audible. Extremity exam; no peripheral edema. Pulses 2+ bilaterally. ARTIST SUSPECT exam; patient has stable right hemiparesis. Medications Medications Current Medications Docusate Sodium (Colace) 100 mg BID PO Last administered on 02/12/17 09:13; Admin Dose 100 MG; Start 02/04/17 at 21:00 Senna (Senokot) 1 tab QHS PO Last administered on 02/11/17 20:21; Admin Dose 1 TAB; Start 02/04/17 at 21:00 Acetaminophen (Tylenol Tab) 650 mg Q4H PRN PO PAIN; Start 02/04/17 at 17:30 Bisacodyl (Dulcolax Supp) 10 mg DAILY PRN [place] CONSTIPATION; Start 02/04/17 at 17 :30 Magnesium Hydroxide (Milk Of Mag) 30 ml BID PRN [place] CONSTIPATION; Start at 17:30 Lactulose (Enulose) 20 gm DAILY PRN [place] CONSTIPATION; Start 02/04/17 at 17:30 Acetaminophen (Tylenol Tab) 650 mg Q6H PRN PO PAIN LEVEL 1-3 OR FEVER; Start at 17:30 Acetaminophen/ Hydrocodone Bitart ([place] (5/325)) 1 tab Q6H PRN PO MODERATE PAIN LEVEL 4-6 Last administered on 02/11/17 20:21; Admin Dose 1 TAB; Start at 17:30 Docusate Sodium (Colace) 100 mg Q12H PRN [place] CONSTIPATION; Start 02/04/17 at 17: 30 Sodium Biphosphate/ Sodium Phosphate (Fleet Enema) 133 ml DAILY PRN [place] CONSTIPATION; Start 02/04/17 at 17:30 Nitroglycerin (Nitroglycerin (Sl Tab) 0.4 Mg) 1 tab Q5M PRN [place] ANGINA; Start at 17:30 Atorvastatin Calcium (Lipitor) 80 mg HS PO Last administered on 02/11/17 20:21 ; Admin Dose 80 MG; Start 02/04/17 at 21:00 Carvedilol (Coreg) 12.5 mg BID PO Last administered on 02/12/17 09:13; Admin Dose 12.5 MG; Start 02/04/17 at 21:00 Aspirin (Halfprin) 81 mg DAILY PO Last administered on 02/12/17 09:12; Admin Dose 81 MG; Start 02/05/17 at 09:00 Nifedipine (Procardia Xl) 120 mg DAILY PO Last administered on 02/12/17 09:14 ; Admin Dose 120 MG; Start 02/05/17 at 09:00 Naproxen (Naprosyn) 500 mg Q8H PRN PO PAIN; Start 02/07/17 at 12:30 Clonidine (Catapres) 0.1 mg Q8H PRN PO ELEVATED BLOOD PRESSURE Last administered on 02/12/17 09:13; Admin Dose 0.1 MG; Start 02/08/17 at 13:00 Valsartan (Diovan) 80 mg BID PO Last administered on 02/12/17 09:13; Admin Dose 80 MG; Start 02/10/17 at 21:00 CHERELLE BASURTO Feb 12, 2017 10:23
--- NOTE | 2017-02-12 12:04 | CONS ---
Date/Time of Note Date/Time of Note DATE: 02/12/17 TIME: 12:03 Consult Date/Type/Reason Admit Date/Time Feb 04, 2017 at 16:44 Type of Consultation: Internal medicine Subjective Feeling better Objective pulm-cta abd-soft min ambulation Vital Signs Date Time Temp Pulse Resp B/P Pulse Ox O2 Delivery O2 Flow Rate FiO2 02/12/17 07:30 97.7 69 18 173/96 98 02/08/17 10:30 Room Air Intake and Output 02/11/17 02/11/17 02/12/17 15:00 23:00 07:00 Intake Total 1200 ml 1080 ml 350 ml Output Total 450 ml 250 ml 550 ml Balance 750 ml 830 ml -200 ml Results/Medications Medications Current Medications Docusate Sodium (Colace) 100 mg BID PO Last administered on 02/12/17 09:13; Admin Dose 100 MG; Start 02/04/17 at 21:00 Senna (Senokot) 1 tab QHS PO Last administered on 02/11/17 20:21; Admin Dose 1 TAB; Start 02/04/17 at 21:00 Acetaminophen (Tylenol Tab) 650 mg Q4H PRN PO PAIN; Start 02/04/17 at 17:30 Bisacodyl (Dulcolax Supp) 10 mg DAILY PRN [place] CONSTIPATION; Start 02/04/17 at 17 :30 Magnesium Hydroxide (Milk Of Mag) 30 ml BID PRN PO CONSTIPATION; Start at 17:30 Lactulose (Enulose) 20 gm DAILY PRN PO CONSTIPATION; Start 02/04/17 at 17:30 Acetaminophen (Tylenol Tab) 650 mg Q6H PRN PO PAIN LEVEL 1-3 OR FEVER; Start at 17:30 Acetaminophen/ Hydrocodone Bitart ([place] (5/325)) 1 tab Q6H PRN PO MODERATE PAIN LEVEL 4-6 Last administered on 02/11/17 20:21; Admin Dose 1 TAB; Start at 17:30 Docusate Sodium (Colace) 100 mg Q12H PRN PO CONSTIPATION; Start 02/04/17 at 17: 30 Sodium Biphosphate/ Sodium Phosphate (Fleet Enema) 133 ml DAILY PRN [place] CONSTIPATION; Start 02/04/17 at 17:30 Nitroglycerin (Nitroglycerin (Sl Tab) 0.4 Mg) 1 tab Q5M PRN [place] ANGINA; Start at 17:30 Atorvastatin Calcium (Lipitor) 80 mg HS PO Last administered on 02/11/17 20:21 ; Admin Dose 80 MG; Start 02/04/17 at 21:00 Carvedilol (Coreg) 12.5 mg BID PO Last administered on 02/12/17 09:13; Admin Dose 12.5 MG; Start 02/04/17 at 21:00 Aspirin (Halfprin) 81 mg DAILY PO Last administered on 02/12/17 09:12; Admin Dose 81 MG; Start 02/05/17 at 09:00 Nifedipine (Procardia Xl) 120 mg DAILY PO Last administered on 02/12/17 09:14 ; Admin Dose 120 MG; Start 02/05/17 at 09:00 Naproxen (Naprosyn) 500 mg Q8H PRN PO PAIN; Start 02/07/17 at 12:30 Clonidine (Catapres) 0.1 mg Q8H PRN PO ELEVATED BLOOD PRESSURE Last administered on 02/12/17 09:13; Admin Dose 0.1 MG; Start 02/08/17 at 13:00 Valsartan (Diovan) 80 mg BID PO Last administered on 02/12/17 09:13; Admin Dose 80 MG; Start 02/10/17 at 21:00 Assessment/Plan Additional Assessment/Plan Rehab- Acute left thalamic ischemic cerebrovascular accident, with R dominant hemiparesis, impaired mobility/gait/ADLs/cognition, dysphagia. Continue interdisciplinary rehab Dysphagia-improving. Hypertension. BP intermittently elevated. Managed per internal medicine. Dyslipidemia. Continue statin. Functional Impact of comorbidity- monitor BP during therapy DAYANARA GRESHAM MD Feb 12, 2017 12:04
[2017-02-12 20:03] VITALS: BP 153/86; RESP 18
[2017-02-12] MEDS: SENNA TAB PO SCH (21:00)
[2017-02-12] MEDS: ATORVASTATIN 80 MG TAB PO SCH (21:30)
[2017-02-12] MEDS: HYDROCODONE/APAP (5/325) TAB PO PRN (21:31)
[2017-02-13] MEDS: DOCUSATE SODIUM 100 MG CAP PO SCH ×2 (08:27→20:15)
[2017-02-13] MEDS: VALSARTAN 80 MG TAB PO SCH ×2 (08:28→20:15)
[2017-02-13] MEDS: ASPIRIN (EC) 81 MG TAB PO SCH (08:28)
[2017-02-13] MEDS: NIFEdipine (XL) 60 MG TAB PO SCH (08:28)
[2017-02-13 09:00] VITALS: BP 140/78; PULSE 88; RESP 18
--- NOTE | 2017-02-13 09:08 | CONS ---
Date/Time of Note Date/Time of Note DATE: 02/13/17 TIME: 09:06 Assessment/Plan Assessment/Plan Additional Assessment/Plan Assessment and plan; 1. Patient admitted with thalamic infarct resulting in right hemiparesis with gradual clinical improvement. 2. Hypertension. Continue current treatment. Consultation Date/Type/Reason Admit Date/Time Feb 04, 2017 at 16:44 Type of Consultation: Internal medicine 24 HR Interval Summary Free Text/Dictation Patient condition stable. Denies any shortness of breath, dysphagia. Patient has been ambulatory with a walker with help of the physical therapist. General exam; middle-aged male, awake alert currently in no distress. Exam/Review of Systems Vital Signs Vitals Vital Signs Date Time Temp Pulse Resp B/P Pulse Ox O2 Delivery O2 Flow Rate FiO2 02/12/17 20:03 98.3 70 18 153/86 98 Intake and Output 02/12/17 02/12/17 02/13/17 15:00 23:00 07:00 Intake Total 1200 ml 1000 ml Output Total 1150 ml 681 ml 400 ml Balance -1150 ml 519 ml 600 ml Exam HEENT exam; supple neck, no JVD. No lymphadenopathy. Midline trachea. No thyromegaly. Pharynx is clear. Patient has fair dentition. Chest exam; clear to auscultation. S1-S2 audible, no murmurs. Regular rhythm. Abdomen exam; soft, nondistended. No organomegaly. Bowel sounds audible. Extremity exam; no peripheral edema. Pulses 1+ bilaterally. No clubbing. 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 Medications Medications Current Medications Docusate Sodium (Colace) 100 mg BID PO Last administered on 02/13/17 08:27; Admin Dose 100 MG; Start 02/04/17 at 21:00 Senna (Senokot) 1 tab QHS PO Last administered on 02/11/17 20:21; Admin Dose 1 TAB; Start 02/04/17 at 21:00 Acetaminophen (Tylenol Tab) 650 mg Q4H PRN PO PAIN; Start 02/04/17 at 17:30 Bisacodyl (Dulcolax Supp) 10 mg DAILY PRN [place] CONSTIPATION; Start 02/04/17 at 17 :30 Magnesium Hydroxide (Milk Of Mag) 30 ml BID PRN PO CONSTIPATION; Start at 17:30 Lactulose (Enulose) 20 gm DAILY PRN PO CONSTIPATION; Start 02/04/17 at 17:30 Acetaminophen (Tylenol Tab) 650 mg Q6H PRN PO PAIN LEVEL 1-3 OR FEVER; Start at 17:30 Acetaminophen/ Hydrocodone Bitart ([place] (5/325)) 1 tab Q6H PRN PO MODERATE PAIN LEVEL 4-6 Last administered on 02/12/17 21:31; Admin Dose 1 TAB; Start at 17:30 Docusate Sodium (Colace) 100 mg Q12H PRN PO CONSTIPATION; Start 02/04/17 at 17: 30 Sodium Biphosphate/ Sodium Phosphate (Fleet Enema) 133 ml DAILY PRN [place] CONSTIPATION; Start 02/04/17 at 17:30 Nitroglycerin (Nitroglycerin (Sl Tab) 0.4 Mg) 1 tab Q5M PRN SL ANGINA; Start at 17:30 Atorvastatin Calcium (Lipitor) 80 mg HS PO Last administered on 02/12/17 21:30 ; Admin Dose 80 MG; Start 02/04/17 at 21:00 Carvedilol (Coreg) 12.5 mg BID PO Last administered on 02/13/17 08:29; Admin Dose 12.5 MG; Start 02/04/17 at 21:00 Aspirin (Halfprin) 81 mg DAILY PO Last administered on 02/13/17 08:28; Admin Dose 81 MG; Start 02/05/17 at 09:00 Nifedipine (Procardia Xl) 120 mg DAILY PO Last administered on 02/13/17 08:28 ; Admin Dose 120 MG; Start 02/05/17 at 09:00 Naproxen (Naprosyn) 500 mg Q8H PRN PO PAIN; Start 02/07/17 at 12:30 Clonidine (Catapres) 0.1 mg Q8H PRN PO ELEVATED BLOOD PRESSURE Last administered on 02/12/17 09:13; Admin Dose 0.1 MG; Start 02/08/17 at 13:00 Valsartan (Diovan) 80 mg BID PO Last administered on 02/13/17 08:28; Admin Dose 80 MG; Start 02/10/17 at 21:00 CHERELLE BASURTO Feb 13, 2017 09:08
--- NOTE | 2017-02-13 13:12 | CONS ---
Date/Time of Note Date/Time of Note DATE: 02/13/17 TIME: 13:11 Consult Date/Type/Reason Admit Date/Time Feb 04, 2017 at 16:44 Type of Consultation: Internal medicine Subjective Comfortable no complaint Objective Lungs clear anteriorly Min assist ambulation Vital Signs Date Time Temp Pulse Resp B/P Pulse Ox O2 Delivery O2 Flow Rate FiO2 02/12/17 20:03 98.3 70 18 153/86 98 Intake and Output 02/12/17 02/12/17 02/13/17 15:00 23:00 07:00 Intake Total 1200 ml 1000 ml Output Total 1150 ml 681 ml 400 ml Balance -1150 ml 519 ml 600 ml Results/Medications Medications Current Medications Docusate Sodium (Colace) 100 mg BID PO Last administered on 02/13/17 08:27; Admin Dose 100 MG; Start 02/04/17 at 21:00 Senna (Senokot) 1 tab QHS PO Last administered on 02/11/17 20:21; Admin Dose 1 TAB; Start 02/04/17 at 21:00 Acetaminophen (Tylenol Tab) 650 mg Q4H PRN PO PAIN; Start 02/04/17 at 17:30 Bisacodyl (Dulcolax Supp) 10 mg DAILY PRN [place] CONSTIPATION; Start 02/04/17 at 17 :30 Magnesium Hydroxide (Milk Of Mag) 30 ml BID PRN PO CONSTIPATION; Start at 17:30 Lactulose (Enulose) 20 gm DAILY PRN PO CONSTIPATION; Start 02/04/17 at 17:30 Acetaminophen (Tylenol Tab) 650 mg Q6H PRN PO PAIN LEVEL 1-3 OR FEVER; Start at 17:30 Acetaminophen/ Hydrocodone Bitart ([place] (5/325)) 1 tab Q6H PRN PO MODERATE PAIN LEVEL 4-6 Last administered on 02/12/17 21:31; Admin Dose 1 TAB; Start at 17:30 Docusate Sodium (Colace) 100 mg Q12H PRN PO CONSTIPATION; Start 02/04/17 at 17: 30 Sodium Biphosphate/ Sodium Phosphate (Fleet Enema) 133 ml DAILY PRN [place] CONSTIPATION; Start 02/04/17 at 17:30 Nitroglycerin (Nitroglycerin (Sl Tab) 0.4 Mg) 1 tab Q5M PRN SL ANGINA; Start at 17:30 Atorvastatin Calcium (Lipitor) 80 mg HS PO Last administered on 02/12/17 21:30 ; Admin Dose 80 MG; Start 02/04/17 at 21:00 Carvedilol (Coreg) 12.5 mg BID PO Last administered on 02/13/17 08:29; Admin Dose 12.5 MG; Start 02/04/17 at 21:00 Aspirin (Halfprin) 81 mg DAILY PO Last administered on 02/13/17 08:28; Admin Dose 81 MG; Start 02/05/17 at 09:00 Nifedipine (Procardia Xl) 120 mg DAILY PO Last administered on 02/13/17 08:28 ; Admin Dose 120 MG; Start 02/05/17 at 09:00 Naproxen (Naprosyn) 500 mg Q8H PRN PO PAIN; Start 02/07/17 at 12:30 Clonidine (Catapres) 0.1 mg Q8H PRN PO ELEVATED BLOOD PRESSURE Last administered on 02/12/17 09:13; Admin Dose 0.1 MG; Start 02/08/17 at 13:00 Valsartan (Diovan) 80 mg BID PO Last administered on 02/13/17 08:28; Admin Dose 80 MG; Start 02/10/17 at 21:00 Assessment/Plan Additional Assessment/Plan Rehab- Acute left thalamic ischemic cerebrovascular accident, with R dominant hemiparesis, impaired mobility/gait/ADLs/cognition, dysphagia. Continue interdisciplinary treatment plan Dysphagia-improving. Hypertension. BP intermittently elevated. Managed per internal medicine. Dyslipidemia. Continue statin. Functional Impact of comorbidity- monitor BP during therapy DAYANARA GRESHAM MD Feb 13, 2017 13:12
[2017-02-13 20:00] VITALS: BP 162/95; RESP 18
[2017-02-13] MEDS: ATORVASTATIN 80 MG TAB PO SCH (20:14)
[2017-02-13] MEDS: SENNA TAB PO SCH (20:15)
[2017-02-13] MEDS: HYDROCODONE/APAP (5/325) TAB PO PRN (20:16)
[2017-02-13 23:00] VITALS: BP 138/72
[2017-02-14 07:30] VITALS: BP 148/74; RESP 18
[2017-02-14] MEDS: ASPIRIN (EC) 81 MG TAB PO SCH (09:09)
[2017-02-14] MEDS: NIFEdipine (XL) 60 MG TAB PO SCH (09:09)
[2017-02-14] MEDS: VALSARTAN 80 MG TAB PO SCH ×2 (09:09→20:20)
[2017-02-14] MEDS: DOCUSATE SODIUM 100 MG CAP PO SCH ×2 (09:10→20:21)
--- NOTE | 2017-02-14 10:55 | CONS ---
Date/Time of Note Date/Time of Note DATE: 02/14/17 TIME: 10:54 Consult Date/Type/Reason Admit Date/Time Feb 04, 2017 at 16:44 Type of Consultation: Internal medicine Subjective Up for breakfast Objective Lungs clear Minimal assist to ambulate Vital Signs Date Time Temp Pulse Resp B/P Pulse Ox O2 Delivery O2 Flow Rate FiO2 02/13/17 23:00 138/72 02/13/17 20:00 98.8 80 18 95 02/13/17 09:00 Room Air Intake and Output 02/13/17 02/13/17 02/14/17 15:00 23:00 07:00 Intake Total 1200 ml 1360 ml 700 ml Output Total 400 ml 400 ml Balance 800 ml 960 ml 700 ml Results/Medications Medications Current Medications Docusate Sodium (Colace) 100 mg BID PO Last administered on 02/14/17 09:10; Admin Dose 100 MG; Start 02/04/17 at 21:00 Senna (Senokot) 1 tab QHS PO Last administered on 02/13/17 20:15; Admin Dose 1 TAB; Start 02/04/17 at 21:00 Acetaminophen (Tylenol Tab) 650 mg Q4H PRN PO PAIN; Start 02/04/17 at 17:30 Bisacodyl (Dulcolax Supp) 10 mg DAILY PRN [place] CONSTIPATION; Start 02/04/17 at 17 :30 Magnesium Hydroxide (Milk Of Mag) 30 ml BID PRN PO CONSTIPATION; Start at 17:30 Lactulose (Enulose) 20 gm DAILY PRN PO CONSTIPATION; Start 02/04/17 at 17:30 Acetaminophen (Tylenol Tab) 650 mg Q6H PRN PO PAIN LEVEL 1-3 OR FEVER; Start at 17:30 Acetaminophen/ Hydrocodone Bitart ([place] (5/325)) 1 tab Q6H PRN PO MODERATE PAIN LEVEL 4-6 Last administered on 02/13/17 20:16; Admin Dose 1 TAB; Start at 17:30 Docusate Sodium (Colace) 100 mg Q12H PRN PO CONSTIPATION; Start 02/04/17 at 17: 30 Sodium Biphosphate/ Sodium Phosphate (Fleet Enema) 133 ml DAILY PRN [place] CONSTIPATION; Start 02/04/17 at 17:30 Nitroglycerin (Nitroglycerin (Sl Tab) 0.4 Mg) 1 tab Q5M PRN SL ANGINA; Start at 17:30 Atorvastatin Calcium (Lipitor) 80 mg HS PO Last administered on 02/13/17 20:14 ; Admin Dose 80 MG; Start 02/04/17 at 21:00 Carvedilol (Coreg) 12.5 mg BID PO Last administered on 02/14/17 09:10; Admin Dose 12.5 MG; Start 02/04/17 at 21:00 Aspirin (Halfprin) 81 mg DAILY PO Last administered on 02/14/17 09:09; Admin Dose 81 MG; Start 02/05/17 at 09:00 Nifedipine (Procardia Xl) 120 mg DAILY PO Last administered on 02/14/17 09:09; Admin Dose 120 MG; Start 02/05/17 at 09:00 Naproxen (Naprosyn) 500 mg Q8H PRN PO PAIN; Start 02/07/17 at 12:30 Clonidine (Catapres) 0.1 mg Q8H PRN PO ELEVATED BLOOD PRESSURE Last administered on 02/12/17 09:13; Admin Dose 0.1 MG; Start 02/08/17 at 13:00 Valsartan (Diovan) 80 mg BID PO Last administered on 02/14/17 09:09; Admin Dose 80 MG; Start 02/10/17 at 21:00 Assessment/Plan Additional Assessment/Plan Rehab- Acute left thalamic ischemic cerebrovascular accident, with R dominant hemiparesis, impaired mobility/gait/ADLs/cognition, dysphagia. Continue rehabilitation program Dysphagia-improving. Hypertension. BP intermittently elevated. Managed per internal medicine DAYANARA GRESHAM MD Feb 14, 2017 10:55
--- NOTE | 2017-02-14 17:34 | CONS ---
Date/Time of Note Date/Time of Note DATE: 02/14/17 TIME: 17:32 Consult Date/Type/Reason Admit Date/Time Feb 04, 2017 at 16:44 Initial Consult Date Type of Consultation: Internal medicine Subjective No events. Objective Vital Signs Date Time Temp Pulse Resp B/P Pulse Ox O2 Delivery O2 Flow Rate FiO2 02/14/17 07:30 98.1 70 18 148/74 98 02/13/17 09:00 Room Air Intake and Output 02/13/17 02/13/17 02/14/17 15:00 23:00 07:00 Intake Total 1200 ml 1360 ml 700 ml Output Total 400 ml 400 ml Balance 800 ml 960 ml 700 ml Exam HEENT: Neck supple; no JVD; no LAD CVS: RRR, S1 and S2 CHEST: Clear ABD: Soft, NT, + BS EXT: No c/c/e Results/Medications Medications Current Medications Docusate Sodium (Colace) 100 mg BID PO Last administered on 02/14/17 09:10; Admin Dose 100 MG; Start 02/04/17 at 21:00 Senna (Senokot) 1 tab QHS PO Last administered on 02/13/17 20:15; Admin Dose 1 TAB; Start 02/04/17 at 21:00 Acetaminophen (Tylenol Tab) 650 mg Q4H PRN PO PAIN; Start 02/04/17 at 17:30 Bisacodyl (Dulcolax Supp) 10 mg DAILY PRN [place] CONSTIPATION; Start 02/04/17 at 17 :30 Magnesium Hydroxide (Milk Of Mag) 30 ml BID PRN PO CONSTIPATION; Start at 17:30 Lactulose (Enulose) 20 gm DAILY PRN PO CONSTIPATION; Start 02/04/17 at 17:30 Acetaminophen (Tylenol Tab) 650 mg Q6H PRN PO PAIN LEVEL 1-3 OR FEVER; Start at 17:30 Acetaminophen/ Hydrocodone Bitart ([place] (5/325)) 1 tab Q6H PRN PO MODERATE PAIN LEVEL 4-6 Last administered on 02/13/17 20:16; Admin Dose 1 TAB; Start at 17:30 Docusate Sodium (Colace) 100 mg Q12H PRN PO CONSTIPATION; Start 02/04/17 at 17: 30 Sodium Biphosphate/ Sodium Phosphate (Fleet Enema) 133 ml DAILY PRN [place] CONSTIPATION; Start 02/04/17 at 17:30 Nitroglycerin (Nitroglycerin (Sl Tab) 0.4 Mg) 1 tab Q5M PRN SL ANGINA; Start at 17:30 Atorvastatin Calcium (Lipitor) 80 mg HS PO Last administered on 02/13/17 20:14 ; Admin Dose 80 MG; Start 02/04/17 at 21:00 Carvedilol (Coreg) 12.5 mg BID PO Last administered on 02/14/17 09:10; Admin Dose 12.5 MG; Start 02/04/17 at 21:00 Aspirin (Halfprin) 81 mg DAILY PO Last administered on 02/14/17 09:09; Admin Dose 81 MG; Start 02/05/17 at 09:00 Nifedipine (Procardia Xl) 120 mg DAILY PO Last administered on 02/14/17 09:09; Admin Dose 120 MG; Start 02/05/17 at 09:00 Naproxen (Naprosyn) 500 mg Q8H PRN PO PAIN; Start 02/07/17 at 12:30 Clonidine (Catapres) 0.1 mg Q8H PRN PO ELEVATED BLOOD PRESSURE Last administered on 02/12/17 09:13; Admin Dose 0.1 MG; Start 02/08/17 at 13:00 Valsartan (Diovan) 80 mg BID PO Last administered on 02/14/17 09:09; Admin Dose 80 MG; Start 02/10/17 at 21:00 Assessment/Plan Additional Assessment/Plan IMP: 1. s/p Thalamic infarct resulting in right hemiparesis with gradual clinical improvement. 2. Hypertension RECS: 1. BP control 2. Rehab efforts. MARIE AGUIRRE MD Feb 14, 2017 17:34
[2017-02-14] MEDS: HYDROCODONE/APAP (5/325) TAB PO PRN (20:19)
[2017-02-14] MEDS: SENNA TAB PO SCH (20:20)
[2017-02-14 20:21] VITALS: BP 141/85; RESP 18
[2017-02-14] MEDS: ATORVASTATIN 80 MG TAB PO SCH (20:21)
[2017-02-15] MEDS: VALSARTAN 80 MG TAB PO SCH ×2 (09:16→20:20)
[2017-02-15] MEDS: DOCUSATE SODIUM 100 MG CAP PO SCH ×2 (09:16→20:18)
[2017-02-15] MEDS: ASPIRIN (EC) 81 MG TAB PO SCH (09:17)
[2017-02-15] MEDS: NIFEdipine (XL) 60 MG TAB PO SCH (09:17)
[2017-02-15 20:00] VITALS: BP 168/86; RESP 18
[2017-02-15] MEDS: SENNA TAB PO SCH (20:18)
[2017-02-15] MEDS: ATORVASTATIN 80 MG TAB PO SCH (20:18)
[2017-02-15] MEDS: HYDROCODONE/APAP (5/325) TAB PO PRN (20:19)
[2017-02-15 21:25] VITALS: BP 132/82; PULSE 68
[2017-02-16 07:30] VITALS: BP 138/81; RESP 18
[2017-02-16] MEDS: DOCUSATE SODIUM 100 MG CAP PO SCH ×2 (09:15→21:09)
[2017-02-16] MEDS: ASPIRIN (EC) 81 MG TAB PO SCH (09:16)
[2017-02-16] MEDS: VALSARTAN 80 MG TAB PO SCH ×2 (09:16→21:08)
[2017-02-16] MEDS: NIFEdipine (XL) 60 MG TAB PO SCH (09:17)
--- NOTE | 2017-02-16 09:20 | CONS ---
Date/Time of Note Date/Time of Note DATE: 02/16/17 TIME: 09:18 Consult Date/Type/Reason Admit Date/Time Feb 04, 2017 at 16:44 Type of Consultation: Internal medicine Objective Vital Signs Date Time Temp Pulse Resp B/P Pulse Ox O2 Delivery O2 Flow Rate FiO2 02/15/17 21:25 68 132/82 02/15/17 20:00 98.3 18 99 02/13/17 09:00 Room Air Intake and Output 02/15/17 02/15/17 02/16/17 15:00 23:00 07:00 Intake Total 550 ml 220 ml Output Total 1100 ml Balance 550 ml -880 ml INTERDISCIPLINARY TEAM CONFERENCE BOWEL- Cont BLADDER-Cont SKIN- intact OT- DRESSING-cga BATHING-cga TOILETING-cga PT- BED MOBILITY-cga TRANSFERS-min/cga AMBULATION-cga/min 100 feet SPEECH- COGNITION-min DYPHAGIA A/P- Interdisciplinary team conference held today. Please see interdisciplinary sheet. Working toward d.c. on 02/20 with post discharge follow up of physical therapy, occupational therapy. Results/Medications Medications Current Medications Docusate Sodium (Colace) 100 mg BID PO Last administered on 02/16/17 09:15; Admin Dose 100 MG; Start 02/04/17 at 21:00 Senna (Senokot) 1 tab QHS PO Last administered on 02/15/17 20:18; Admin Dose 1 TAB; Start 02/04/17 at 21:00 Acetaminophen (Tylenol Tab) 650 mg Q4H PRN PO PAIN; Start 02/04/17 at 17:30 Bisacodyl (Dulcolax Supp) 10 mg DAILY PRN [place] CONSTIPATION; Start 02/04/17 at 17 :30 Magnesium Hydroxide (Milk Of Mag) 30 ml BID PRN PO CONSTIPATION; Start at 17:30 Lactulose (Enulose) 20 gm DAILY PRN PO CONSTIPATION; Start 02/04/17 at 17:30 Acetaminophen (Tylenol Tab) 650 mg Q6H PRN PO PAIN LEVEL 1-3 OR FEVER; Start at 17:30 Acetaminophen/ Hydrocodone Bitart ([place] (5/325)) 1 tab Q6H PRN PO MODERATE PAIN LEVEL 4-6 Last administered on 02/15/17 20:19; Admin Dose 1 TAB; Start at 17:30 Docusate Sodium (Colace) 100 mg Q12H PRN PO CONSTIPATION; Start 02/04/17 at 17: 30 Sodium Biphosphate/ Sodium Phosphate (Fleet Enema) 133 ml DAILY PRN [place] CONSTIPATION; Start 02/04/17 at 17:30 Nitroglycerin (Nitroglycerin (Sl Tab) 0.4 Mg) 1 tab Q5M PRN [place] ANGINA; Start at 17:30 Atorvastatin Calcium (Lipitor) 80 mg HS PO Last administered on 02/15/17 20:18 ; Admin Dose 80 MG; Start 02/04/17 at 21:00 Carvedilol (Coreg) 12.5 mg BID PO Last administered on 02/16/17 09:16; Admin Dose 12.5 MG; Start 02/04/17 at 21:00 Aspirin (Halfprin) 81 mg DAILY PO Last administered on 02/16/17 09:16; Admin Dose 81 MG; Start 02/05/17 at 09:00 Nifedipine (Procardia Xl) 120 mg DAILY PO Last administered on 02/16/17 09:17; Admin Dose 120 MG; Start 02/05/17 at 09:00 Naproxen (Naprosyn) 500 mg Q8H PRN PO PAIN; Start 02/07/17 at 12:30 Clonidine (Catapres) 0.1 mg Q8H PRN PO ELEVATED BLOOD PRESSURE Last administered on 02/12/17 09:13; Admin Dose 0.1 MG; Start 02/08/17 at 13:00 Valsartan (Diovan) 80 mg BID PO Last administered on 02/16/17 09:16; Admin Dose 80 MG; Start 02/10/17 at 21:00 DAYANARA GRESHAM MD Feb 16, 2017 09:19
--- NOTE | 2017-02-16 13:00 | CONS ---
Date/Time of Note Date/Time of Note DATE: 02/16/17 TIME: 12:58 Consult Date/Type/Reason Admit Date/Time Feb 04, 2017 at 16:44 Initial Consult Date Type of Consultation: Internal medicine Subjective Patient comfortable this morning in wheelchair Objective Vital Signs Date Time Temp Pulse Resp B/P Pulse Ox O2 Delivery O2 Flow Rate FiO2 02/15/17 21:25 68 132/82 02/15/17 20:00 98.3 18 99 02/13/17 09:00 Room Air Intake and Output 02/15/17 02/15/17 02/16/17 14:59 22:59 06:59 Intake Total 550 ml 220 ml Output Total 1100 ml Balance 550 ml -880 ml Exam GENERAL: VITAL SIGNS: per chart NECK: Supple. No JVD or lymphadenopathy. CARDIAC EXAM: S1, S2. No added sounds or murmurs. CHEST: clear bilaterally, No added sounds, rales or wheezes ABDOMEN: Soft, nontender. No guarding or rebound. EXTREMITIES: No cyanosis, clubbing or edema. NEUROLOGIC: Hemiplegia Results/Medications Medications Current Medications Docusate Sodium (Colace) 100 mg BID PO Last administered on 02/16/17 09:15; Admin Dose 100 MG; Start 02/04/17 at 21:00 Senna (Senokot) 1 tab QHS PO Last administered on 02/15/17 20:18; Admin Dose 1 TAB; Start 02/04/17 at 21:00 Acetaminophen (Tylenol Tab) 650 mg Q4H PRN PO PAIN; Start 02/04/17 at 17:30 Bisacodyl (Dulcolax Supp) 10 mg DAILY PRN [place] CONSTIPATION; Start 02/04/17 at 17 :30 Magnesium Hydroxide (Milk Of Mag) 30 ml BID PRN [place] CONSTIPATION; Start at 17:30 Lactulose (Enulose) 20 gm DAILY PRN [place] CONSTIPATION; Start 02/04/17 at 17:30 Acetaminophen (Tylenol Tab) 650 mg Q6H PRN PO PAIN LEVEL 1-3 OR FEVER; Start at 17:30 Acetaminophen/ Hydrocodone Bitart ([place] (5/325)) 1 tab Q6H PRN PO MODERATE PAIN LEVEL 4-6 Last administered on 02/15/17 20:19; Admin Dose 1 TAB; Start at 17:30 Docusate Sodium (Colace) 100 mg Q12H PRN [place] CONSTIPATION; Start 02/04/17 at 17: 30 Sodium Biphosphate/ Sodium Phosphate (Fleet Enema) 133 ml DAILY PRN [place] CONSTIPATION; Start 02/04/17 at 17:30 Nitroglycerin (Nitroglycerin (Sl Tab) 0.4 Mg) 1 tab Q5M PRN [place] ANGIN[place]; Start at 17:30 Atorvastatin Calcium (Lipitor) 80 mg HS PO Last administered on 02/15/17 20:18 ; Admin Dose 80 MG; Start 02/04/17 at 21:00 Carvedilol (Coreg) 12.5 mg BID PO Last administered on 02/16/17 09:16; Admin Dose 12.5 MG; Start 02/04/17 at 21:00 Aspirin (Halfprin) 81 mg DAILY PO Last administered on 02/16/17 09:16; Admin Dose 81 MG; Start 02/05/17 at 09:00 Nifedipine (Procardia Xl) 120 mg DAILY PO Last administered on 02/16/17 09:17; Admin Dose 120 MG; Start 02/05/17 at 09:00 Naproxen (Naprosyn) 500 mg Q8H PRN PO PAIN; Start 02/07/17 at 12:30 Clonidine (Catapres) 0.1 mg Q8H PRN PO ELEVATED BLOOD PRESSURE Last administered on 02/12/17 09:13; Admin Dose 0.1 MG; Start 02/08/17 at 13:00 Valsartan (Diovan) 80 mg BID PO Last administered on 02/16/17 09:16; Admin Dose 80 MG; Start 02/10/17 at 21:00 Assessment/Plan Chief Complaint/Hosp Course IMP: 1. s/p Thalamic infarct resulting in right hemiparesis with gradual clinical improvement. 2. Hypertension RECS: 1. BP control 2. Rehab efforts. Problems: MICHELA DUNBAR MD, [facility] Feb 16, 2017 13:00
[2017-02-16 20:00] VITALS: BP 152/92; RESP 18
[2017-02-16] MEDS: ATORVASTATIN 80 MG TAB PO SCH (21:09)
[2017-02-16] MEDS: SENNA TAB PO SCH (21:12)
[2017-02-17] MEDS: ASPIRIN (EC) 81 MG TAB PO SCH (09:02)
[2017-02-17] MEDS: VALSARTAN 80 MG TAB PO SCH (09:03)
[2017-02-17] MEDS: DOCUSATE SODIUM 100 MG CAP PO SCH ×2 (09:03→20:23)
[2017-02-17] MEDS: NIFEdipine (XL) 60 MG TAB PO SCH (09:04)
--- NOTE | 2017-02-17 10:43 | CONS ---
Date/Time of Note Date/Time of Note DATE: 02/17/17 TIME: 10:43 Consult Date/Type/Reason Admit Date/Time Feb 04, 2017 at 16:44 Type of Consultation: Internal medicine Subjective Comfortable Objective Lungs clear anterior Contact-guard assist Vital Signs Date Time Temp Pulse Resp B/P Pulse Ox O2 Delivery O2 Flow Rate FiO2 02/16/17 20:00 98.4 79 18 152/92 98 02/13/17 09:00 Room Air Intake and Output 02/16/17 02/16/17 02/17/17 15:00 23:00 07:00 Intake Total 860 ml Output Total 421 ml 1250 ml Balance 439 ml -1250 ml Results/Medications Medications Current Medications Docusate Sodium (Colace) 100 mg BID PO Last administered on 02/17/17 09:03; Admin Dose 100 MG; Start 02/04/17 at 21:00 Senna (Senokot) 1 tab QHS PO Last administered on 02/16/17 21:12; Admin Dose 1 TAB; Start 02/04/17 at 21:00 Acetaminophen (Tylenol Tab) 650 mg Q4H PRN PO PAIN; Start 02/04/17 at 17:30 Bisacodyl (Dulcolax Supp) 10 mg DAILY PRN [place] CONSTIPATION; Start 02/04/17 at 17 :30 Magnesium Hydroxide (Milk Of Mag) 30 ml BID PRN [place] CONSTIPATION; Start at 17:30 Lactulose (Enulose) 20 gm DAILY PRN [place] CONSTIPATION; Start 02/04/17 at 17:30 Acetaminophen (Tylenol Tab) 650 mg Q6H PRN PO PAIN LEVEL 1-3 OR FEVER; Start at 17:30 Acetaminophen/ Hydrocodone Bitart ([place] (5/325)) 1 tab Q6H PRN PO MODERATE PAIN LEVEL 4-6 Last administered on 02/15/17 20:19; Admin Dose 1 TAB; Start at 17:30 Docusate Sodium (Colace) 100 mg Q12H PRN [place] CONSTIPATION; Start 02/04/17 at 17: 30 Sodium Biphosphate/ Sodium Phosphate (Fleet Enema) 133 ml DAILY PRN [place] CONSTIPATION; Start 02/04/17 at 17:30 Nitroglycerin (Nitroglycerin (Sl Tab) 0.4 Mg) 1 tab Q5M PRN [place] ANGIN[place]; Start at 17:30 Atorvastatin Calcium (Lipitor) 80 mg HS PO Last administered on 02/16/17 21:09 ; Admin Dose 80 MG; Start 02/04/17 at 21:00 Carvedilol (Coreg) 12.5 mg BID PO Last administered on 02/17/17 09:03; Admin Dose 12.5 MG; Start 02/04/17 at 21:00 Aspirin (Halfprin) 81 mg DAILY PO Last administered on 02/17/17 09:02; Admin Dose 81 MG; Start 02/05/17 at 09:00 Nifedipine (Procardia Xl) 120 mg DAILY PO Last administered on 02/17/17 09:04; Admin Dose 120 MG; Start 02/05/17 at 09:00 Naproxen (Naprosyn) 500 mg Q8H PRN PO PAIN; Start 02/07/17 at 12:30 Clonidine (Catapres) 0.1 mg Q8H PRN PO ELEVATED BLOOD PRESSURE Last administered on 02/12/17 09:13; Admin Dose 0.1 MG; Start 02/08/17 at 13:00 Valsartan (Diovan) 80 mg BID PO Last administered on 02/17/17 09:03; Admin Dose 80 MG; Start 02/10/17 at 21:00 Assessment/Plan Additional Assessment/Plan Rehab- Acute left thalamic ischemic cerebrovascular accident, with R dominant hemiparesis, impaired mobility/gait/ADLs/cognition, dysphagia. Continue rehabilitation program Dysphagia-improving. Hypertension DAYANARA GRESHAM MD Feb 17, 2017 10:43
--- NOTE | 2017-02-17 13:13 | CONS ---
Date/Time of Note Date/Time of Note DATE: 02/17/17 TIME: 13:10 Consult Date/Type/Reason Admit Date/Time Feb 04, 2017 at 16:44 Type of Consultation: Internal medicine Subjective Patient remains stable this morning Blood pressure noted to be mildly elevated Objective Vital Signs Date Time Temp Pulse Resp B/P Pulse Ox O2 Delivery O2 Flow Rate FiO2 02/16/17 20:00 98.4 79 18 152/92 98 02/13/17 09:00 Room Air Intake and Output 02/16/17 02/16/17 02/17/17 15:00 23:00 07:00 Intake Total 860 ml Output Total 421 ml 1250 ml Balance 439 ml -1250 ml Exam Exam GENERAL: VITAL SIGNS: per chart NECK: Supple. No JVD or lymphadenopathy. CARDIAC EXAM: S1, S2. No added sounds or murmurs. CHEST: clear bilaterally, No added sounds, rales or wheezes ABDOMEN: Soft, nontender. No guarding or rebound. EXTREMITIES: No cyanosis, clubbing or edema. NEUROLOGIC: Hemiplegia Results/Medications Medications Current Medications Docusate Sodium (Colace) 100 mg BID PO Last administered on 02/17/17 09:03; Admin Dose 100 MG; Start 02/04/17 at 21:00 Senna (Senokot) 1 tab QHS PO Last administered on 02/16/17 21:12; Admin Dose 1 TAB; Start 02/04/17 at 21:00 Acetaminophen (Tylenol Tab) 650 mg Q4H PRN PO PAIN; Start 02/04/17 at 17:30 Bisacodyl (Dulcolax Supp) 10 mg DAILY PRN [place] CONSTIPATION; Start 02/04/17 at 17 :30 Magnesium Hydroxide (Milk Of Mag) 30 ml BID PRN [place] CONSTIPATION; Start at 17:30 Lactulose (Enulose) 20 gm DAILY PRN [place] CONSTIPATION; Start 02/04/17 at 17:30 Acetaminophen (Tylenol Tab) 650 mg Q6H PRN PO PAIN LEVEL 1-3 OR FEVER; Start at 17:30 Acetaminophen/ Hydrocodone Bitart ([place] (5/325)) 1 tab Q6H PRN PO MODERATE PAIN LEVEL 4-6 Last administered on 02/15/17 20:19; Admin Dose 1 TAB; Start at 17:30 Docusate Sodium (Colace) 100 mg Q12H PRN [place] CONSTIPATION; Start 02/04/17 at 17: 30 Sodium Biphosphate/ Sodium Phosphate (Fleet Enema) 133 ml DAILY PRN [place] CONSTIPATION; Start 02/04/17 at 17:30 Nitroglycerin (Nitroglycerin (Sl Tab) 0.4 Mg) 1 tab Q5M PRN [place] ANGIN[place]; Start at 17:30 Atorvastatin Calcium (Lipitor) 80 mg HS PO Last administered on 02/16/17 21:09 ; Admin Dose 80 MG; Start 02/04/17 at 21:00 Carvedilol (Coreg) 12.5 mg BID PO Last administered on 02/17/17 09:03; Admin Dose 12.5 MG; Start 02/04/17 at 21:00 Aspirin (Halfprin) 81 mg DAILY PO Last administered on 02/17/17 09:02; Admin Dose 81 MG; Start 02/05/17 at 09:00 Nifedipine (Procardia Xl) 120 mg DAILY PO Last administered on 02/17/17 09:04; Admin Dose 120 MG; Start 02/05/17 at 09:00 Naproxen (Naprosyn) 500 mg Q8H PRN PO PAIN; Start 02/07/17 at 12:30 Clonidine (Catapres) 0.1 mg Q8H PRN PO ELEVATED BLOOD PRESSURE Last administered on 02/12/17 09:13; Admin Dose 0.1 MG; Start 02/08/17 at 13:00 Valsartan (Diovan) 80 mg BID PO Last administered on 02/17/17 09:03; Admin Dose 80 MG; Start 02/10/17 at 21:00 Assessment/Plan Chief Complaint/Hosp Course IMP: 1. s/p Thalamic infarct resulting in right hemiparesis with gradual clinical improvement. 2. Hypertension RECS: 1. BP control currently on valsartan, carvedilol, nifedipine XL. Will need increase valsartan to 320 mg p.o. daily. If this is insufficient I will increase carvedilol to 25 mg p.o. twice daily. 2. Rehab efforts. Problems: MIC[facility]LA DUNBAR MD, [facility] Feb 17, 2017 13:12
[2017-02-17 20:00] VITALS: BP 157/92; RESP 18
[2017-02-17] MEDS: SENNA TAB PO SCH (20:23)
[2017-02-17] MEDS: VALSARTAN 160 MG TAB PO SCH (20:23)
[2017-02-17] MEDS: ATORVASTATIN 80 MG TAB PO SCH (20:23)
[2017-02-18 07:32] LABS: ADD SCAN DIFF NO
[2017-02-18 07:36] LABS: BASOPHILS % 0.7 % (0.0-2.0); EOSINOPHILS # 0.3 10^3/ul (0.0-0.5); EOSINOPHILS % 4.6 % (0.0-7.0); HEMATOCRIT 39.6 % (42.0-52.0); HEMOGLOBIN 13.5 g/dl (14.0-18.0); LYMPHOCYTES # 2.3 10^3/ul (0.8-2.9); MEAN CORPUSCULAR HEMOGLOBIN 30.9 pg (29.0-33.0); MEAN CORPUSCULAR HGB CONC 34.1 g/dl (32.0-37.0); MEAN CORPUSCULAR VOLUME 90.6 fl (82.0-101.0); MEAN PLATELET VOLUME 9.9 fl (7.4-10.4); MONOCYTE # 0.5 10^3/ul (0.3-0.9); MONOCYTES % 9.3 % (0.0-11.0); NEUTROPHIL # 2.5 10^3/ul (1.6-7.5); PLATELET COUNT 196 10^3/UL (140-415); RED BLOOD COUNT 4.37 10^6/ul (4.70-6.10); RED CELL DISTRIBUTION WIDTH 11.9 % (11.5-14.5); WHITE BLOOD COUNT 5.6 10^3/ul (4.8-10.8)
[2017-02-18 08:07] LABS: CREATININE 1.07 mg/dl (0.61-1.24); MAGNESIUM 2.1 mg/dl (1.7-2.5); PHOSPHORUS 4.3 mg/dl (2.5-4.9); POTASSIUM 4.8 mmol/L (3.5-5.1)
[2017-02-18] MEDS: VALSARTAN 160 MG TAB PO SCH ×2 (08:30→21:54)
[2017-02-18] MEDS: NIFEdipine (XL) 60 MG TAB PO SCH (08:31)
[2017-02-18] MEDS: DOCUSATE SODIUM 100 MG CAP PO SCH ×2 (08:31→21:52)
[2017-02-18] MEDS: ASPIRIN (EC) 81 MG TAB PO SCH (08:31)
[2017-02-18 10:00] VITALS: BP 140/80
--- NOTE | 2017-02-18 12:09 | CONS ---
Date/Time of Note Date/Time of Note DATE: 02/18/17 TIME: 12:08 Consult Date/Type/Reason Admit Date/Time Feb 04, 2017 at 16:44 Type of Consultation: Internal medicine Objective Lungs clear anteriorly Contact-guard assist Vital Signs Date Time Temp Pulse Resp B/P Pulse Ox O2 Delivery O2 Flow Rate FiO2 02/17/17 20:00 97.9 73 18 157/92 99 Intake and Output 02/17/17 02/17/17 02/18/17 15:00 23:00 07:00 Intake Total 1200 ml 600 ml 360 ml Output Total 700 ml 500 ml 250 ml Balance 500 ml 100 ml 110 ml Results/Medications Result Diagram: 02/18/17 0614 02/18/17 0615 Results 24 hrs Laboratory Tests Test 02/18/17 06:14 02/18/17 06:15 White Blood Count 5.6 Red Blood Count 4.37 L Hemoglobin 13.5 L Hematocrit 39.6 L Mean Corpuscular Volume 90.6 Mean Corpuscular Hemoglobin 30.9 Mean Corpuscular Hemoglobin Concent 34.1 Red Cell Distribution Width 11.9 Platelet Count 196 Mean Platelet Volume 9.9 Neutrophils % 45.0 Lymphocytes % 40.0 Monocytes % 9.3 Eosinophils % 4.6 Basophils % 0.7 Nucleated Red Blood Cells % 0.0 Neutrophils # 2.5 Lymphocytes # 2.3 Monocytes # 0.5 Eosinophils # 0.3 Basophils # 0.0 Nucleated Red Blood Cells # 0.0 Sodium Level 145 H Potassium Level 4.8 Chloride Level 103 Carbon Dioxide Level 28 Anion Gap 19 H Blood Urea Nitrogen 19 Creatinine 1.07 Glucose Level 89 Calcium Level 10.0 Phosphorus Level 4.3 Magnesium Level 2.1 Medications Current Medications Docusate Sodium (Colace) 100 mg BID PO Last administered on 02/18/17 08:31; Admin Dose 100 MG; Start 02/04/17 at 21:00 Senna (Senokot) 1 tab QHS PO Last administered on 02/17/17 20:23; Admin Dose 1 TAB; Start 02/04/17 at 21:00 Acetaminophen (Tylenol Tab) 650 mg Q4H PRN PO PAIN; Start 02/04/17 at 17:30 Bisacodyl (Dulcolax Supp) 10 mg DAILY PRN [place] CONSTIPATION; Start 02/04/17 at 17 :30 Magnesium Hydroxide (Milk Of Mag) 30 ml BID PRN [place] CONSTIPATION; Start at 17:30 Lactulose (Enulose) 20 gm DAILY PRN [place] CONSTIPATION; Start 02/04/17 at 17:30 Acetaminophen (Tylenol Tab) 650 mg Q6H PRN PO PAIN LEVEL 1-3 OR FEVER; Start at 17:30 Acetaminophen/ Hydrocodone Bitart ([place] (5/325)) 1 tab Q6H PRN PO MODERATE PAIN LEVEL 4-6 Last administered on 02/15/17 20:19; Admin Dose 1 TAB; Start at 17:30 Docusate Sodium (Colace) 100 mg Q12H PRN [place] CONSTIPATION; Start 02/04/17 at 17: 30 Sodium Biphosphate/ Sodium Phosphate (Fleet Enema) 133 ml DAILY PRN [place] CONSTIPATION; Start 02/04/17 at 17:30 Nitroglycerin (Nitroglycerin (Sl Tab) 0.4 Mg) 1 tab Q5M PRN [place] ANGIN[place]; Start at 17:30 Atorvastatin Calcium (Lipitor) 80 mg HS PO Last administered on 02/17/17 20:23 ; Admin Dose 80 MG; Start 02/04/17 at 21:00 Carvedilol (Coreg) 12.5 mg BID PO Last administered on 02/18/17 08:30; Admin Dose 12.5 MG; Start 02/04/17 at 21:00 Aspirin (Halfprin) 81 mg DAILY PO Last administered on 02/18/17 08:31; Admin Dose 81 MG; Start 02/05/17 at 09:00 Nifedipine (Procardia Xl) 120 mg DAILY PO Last administered on 02/18/17 08:31; Admin Dose 120 MG; Start 02/05/17 at 09:00 Naproxen (Naprosyn) 500 mg Q8H PRN PO PAIN; Start 02/07/17 at 12:30 Clonidine (Catapres) 0.1 mg Q8H PRN PO ELEVATED BLOOD PRESSURE Last administered on 02/12/17 09:13; Admin Dose 0.1 MG; Start 02/08/17 at 13:00 Valsartan (Diovan) 160 mg BID PO Last administered on 02/18/17 08:30; Admin Dose 160 MG; Start 02/17/17 at 21:00 Assessment/Plan Additional Assessment/Plan Rehab- Acute left thalamic ischemic cerebrovascular accident, with R dominant hemiparesis, impaired mobility/gait/ADLs/cognition, dysphagia. Continue rehabilitation program, anticipate discharge Thursday Dysphagia-improving. Hypertension. BP intermittently elevated. Managed per internal medicine DAYANARA GRESHAM MD Feb 18, 2017 12:09
[2017-02-18 16:12] VITALS: BP 134/83
--- NOTE | 2017-02-18 16:49 | CONS ---
Date/Time of Note Date/Time of Note DATE: 02/18/17 TIME: 16:48 Consult Date/Type/Reason Admit Date/Time Feb 04, 2017 at 16:44 Type of Consultation: Internal medicine Subjective Remains comfortable Objective Vital Signs Date Time Temp Pulse Resp B/P Pulse Ox O2 Delivery O2 Flow Rate FiO2 02/18/17 16:12 134/83 02/17/17 20:00 97.9 73 18 99 Intake and Output 02/17/17 02/17/17 02/18/17 15:00 23:00 07:00 Intake Total 1200 ml 600 ml 360 ml Output Total 700 ml 500 ml 250 ml Balance 500 ml 100 ml 110 ml Exam GENERAL: VITAL SIGNS: per chart NECK: Supple. No JVD or lymphadenopathy. CARDIAC EXAM: S1, S2. No added sounds or murmurs. CHEST: clear bilaterally, No added sounds, rales or wheezes ABDOMEN: Soft, nontender. No guarding or rebound. EXTREMITIES: No cyanosis, clubbing or edema. NEUROLOGIC: Hemiplegia Results/Medications Result Diagram: 02/18/17 0614 02/18/17 0615 Results 24 hrs Laboratory Tests Test 02/18/17 06:14 02/18/17 06:15 White Blood Count 5.6 Red Blood Count 4.37 L Hemoglobin 13.5 L Hematocrit 39.6 L Mean Corpuscular Volume 90.6 Mean Corpuscular Hemoglobin 30.9 Mean Corpuscular Hemoglobin Concent 34.1 Red Cell Distribution Width 11.9 Platelet Count 196 Mean Platelet Volume 9.9 Neutrophils % 45.0 Lymphocytes % 40.0 Monocytes % 9.3 Eosinophils % 4.6 Basophils % 0.7 Nucleated Red Blood Cells % 0.0 Neutrophils # 2.5 Lymphocytes # 2.3 Monocytes # 0.5 Eosinophils # 0.3 Basophils # 0.0 Nucleated Red Blood Cells # 0.0 Sodium Level 145 H Potassium Level 4.8 Chloride Level 103 Carbon Dioxide Level 28 Anion Gap 19 H Blood Urea Nitrogen 19 Creatinine 1.07 Glucose Level 89 Calcium Level 10.0 Phosphorus Level 4.3 Magnesium Level 2.1 Medications Current Medications Docusate Sodium (Colace) 100 mg BID PO Last administered on 02/18/17 08:31; Admin Dose 100 MG; Start 02/04/17 at 21:00 Senna (Senokot) 1 tab QHS PO Last administered on 02/17/17 20:23; Admin Dose 1 TAB; Start 02/04/17 at 21:00 Acetaminophen (Tylenol Tab) 650 mg Q4H PRN PO PAIN; Start 02/04/17 at 17:30 Bisacodyl (Dulcolax Supp) 10 mg DAILY PRN [place] CONSTIPATION; Start 02/04/17 at 17 :30 Magnesium Hydroxide (Milk Of Mag) 30 ml BID PRN PO CONSTIPATION; Start at 17:30 Lactulose (Enulose) 20 gm DAILY PRN PO CONSTIPATION; Start 02/04/17 at 17:30 Acetaminophen (Tylenol Tab) 650 mg Q6H PRN PO PAIN LEVEL 1-3 OR FEVER; Start at 17:30 Acetaminophen/ Hydrocodone Bitart ([place] (5/325)) 1 tab Q6H PRN PO MODERATE PAIN LEVEL 4-6 Last administered on 02/15/17 20:19; Admin Dose 1 TAB; Start at 17:30 Docusate Sodium (Colace) 100 mg Q12H PRN PO CONSTIPATION; Start 02/04/17 at 17: 30 Sodium Biphosphate/ Sodium Phosphate (Fleet Enema) 133 ml DAILY PRN [place] CONSTIPATION; Start 02/04/17 at 17:30 Nitroglycerin (Nitroglycerin (Sl Tab) 0.4 Mg) 1 tab Q5M PRN [place] ANGIN[place]; Start at 17:30 Atorvastatin Calcium (Lipitor) 80 mg HS PO Last administered on 02/17/17 20:23 ; Admin Dose 80 MG; Start 02/04/17 at 21:00 Carvedilol (Coreg) 12.5 mg BID PO Last administered on 02/18/17 08:30; Admin Dose 12.5 MG; Start 02/04/17 at 21:00 Aspirin (Halfprin) 81 mg DAILY PO Last administered on 02/18/17 08:31; Admin Dose 81 MG; Start 02/05/17 at 09:00 Nifedipine (Procardia Xl) 120 mg DAILY PO Last administered on 02/18/17 08:31; Admin Dose 120 MG; Start 02/05/17 at 09:00 Naproxen (Naprosyn) 500 mg Q8H PRN PO PAIN; Start 02/07/17 at 12:30 Clonidine (Catapres) 0.1 mg Q8H PRN PO ELEVATED BLOOD PRESSURE Last administered on 02/12/17 09:13; Admin Dose 0.1 MG; Start 02/08/17 at 13:00 Valsartan (Diovan) 160 mg BID PO Last administered on 02/18/17 08:30; Admin Dose 160 MG; Start 02/17/17 at 21:00 Assessment/Plan Chief Complaint/Hosp Course IMP: 1. s/p Thalamic infarct resulting in right hemiparesis with gradual clinical improvement. 2. Hypertension RECS: 1. BP control currently on valsartan, carvedilol, nifedipine XL. Will need increase valsartan to 320 mg p.o. daily. If this is insufficient I will increase carvedilol to 25 mg p.o. twice daily. 2. Rehab efforts. Problems: MICHELA DUNBAR MD, [facility] Feb 18, 2017 16:49
[2017-02-18 20:18] VITALS: BP 149/90; RESP 18
[2017-02-18] MEDS: SENNA TAB PO SCH (21:00)
[2017-02-18] MEDS: ATORVASTATIN 80 MG TAB PO SCH (21:54)
[2017-02-19 07:30] VITALS: BP 177/109; RESP 68
[2017-02-19] MEDS: VALSARTAN 160 MG TAB PO SCH ×2 (08:35→20:44)
[2017-02-19] MEDS: NIFEdipine (XL) 60 MG TAB PO SCH (08:36)
[2017-02-19] MEDS: ASPIRIN (EC) 81 MG TAB PO SCH (08:36)
[2017-02-19] MEDS: DOCUSATE SODIUM 100 MG CAP PO SCH ×2 (08:37→20:45)
--- NOTE | 2017-02-19 08:47 | CONS ---
Date/Time of Note Date/Time of Note DATE: 02/19/17 TIME: 08:46 Consult Date/Type/Reason Admit Date/Time Feb 04, 2017 at 16:44 Type of Consultation: Internal medicine Subjective Patient is comfortable with no complaint Objective Lungs clear anteriorly Abdomen soft Standby assist ambulation 150 feet Vital Signs Date Time Temp Pulse Resp B/P Pulse Ox O2 Delivery O2 Flow Rate FiO2 02/18/17 20:18 98.3 75 18 149/90 97 Intake and Output 02/18/17 02/18/17 02/19/17 15:00 23:00 07:00 Intake Total 1220 ml 1100 ml 1000 ml Output Total 500 ml 200 ml 450 ml Balance 720 ml 900 ml 550 ml Results/Medications Result Diagram: 02/18/17 0614 02/18/17 0615 Medications Current Medications Docusate Sodium (Colace) 100 mg BID PO Last administered on 02/19/17 08:37; Admin Dose 100 MG; Start 02/04/17 at 21:00 Senna (Senokot) 1 tab QHS PO Last administered on 02/17/17 20:23; Admin Dose 1 TAB; Start 02/04/17 at 21:00 Acetaminophen (Tylenol Tab) 650 mg Q4H PRN PO PAIN; Start 02/04/17 at 17:30 Bisacodyl (Dulcolax Supp) 10 mg DAILY PRN [place] CONSTIPATION; Start 02/04/17 at 17 :30 Magnesium Hydroxide (Milk Of Mag) 30 ml BID PRN [place] CONSTIPATION; Start at 17:30 Lactulose (Enulose) 20 gm DAILY PRN [place] CONSTIPATION; Start 02/04/17 at 17:30 Acetaminophen (Tylenol Tab) 650 mg Q6H PRN PO PAIN LEVEL 1-3 OR FEVER; Start at 17:30 Acetaminophen/ Hydrocodone Bitart ([place] (5/325)) 1 tab Q6H PRN PO MODERATE PAIN LEVEL 4-6 Last administered on 02/15/17 20:19; Admin Dose 1 TAB; Start at 17:30 Docusate Sodium (Colace) 100 mg Q12H PRN PO CONSTIPATION; Start 02/04/17 at 17: 30 Sodium Biphosphate/ Sodium Phosphate (Fleet Enema) 133 ml DAILY PRN [place] CONSTIPATION; Start 02/04/17 at 17:30 Nitroglycerin (Nitroglycerin (Sl Tab) 0.4 Mg) 1 tab Q5M PRN [place] ANGIN[place]; Start at 17:30 Atorvastatin Calcium (Lipitor) 80 mg HS PO Last administered on 02/18/17 21:54 ; Admin Dose 80 MG; Start 02/04/17 at 21:00 Carvedilol (Coreg) 12.5 mg BID PO Last administered on 02/19/17 08:36; Admin Dose 12.5 MG; Start 02/04/17 at 21:00 Aspirin (Halfprin) 81 mg DAILY PO Last administered on 02/19/17 08:36; Admin Dose 81 MG; Start 02/05/17 at 09:00 Nifedipine (Procardia Xl) 120 mg DAILY PO Last administered on 02/19/17 08:36; Admin Dose 120 MG; Start 02/05/17 at 09:00 Naproxen (Naprosyn) 500 mg Q8H PRN PO PAIN; Start 02/07/17 at 12:30 Clonidine (Catapres) 0.1 mg Q8H PRN PO ELEVATED BLOOD PRESSURE Last administered on 02/12/17 09:13; Admin Dose 0.1 MG; Start 02/08/17 at 13:00 Valsartan (Diovan) 160 mg BID PO Last administered on 02/19/17 08:35; Admin Dose 160 MG; Start 02/17/17 at 21:00 Assessment/Plan Additional Assessment/Plan Rehab- Acute left thalamic ischemic cerebrovascular accident, with R dominant hemiparesis, impaired mobility/gait/ADLs/cognition, dysphagia. Patient has made excellent gains with the comprehensive interdisciplinary rehabilitative treatment plan. We are working towards discharge home with family tomorrow Dysphagia-improved, tolerating diet well, meeting nutritional needs by mouth. Hypertension-followed closely by internal medicine DAYANARA GRESHAM MD Feb 19, 2017 08:47
[2017-02-19 11:43] VITALS: BP 145/81; PULSE 77
--- NOTE | 2017-02-19 12:49 | CONS ---
Date/Time of Note Date/Time of Note DATE: 02/19/17 TIME: 12:48 Consult Date/Type/Reason Admit Date/Time Feb 04, 2017 at 16:44 Type of Consultation: Internal medicine Subjective Patient comfortable no new events Objective Vital Signs Date Time Temp Pulse Resp B/P Pulse Ox O2 Delivery O2 Flow Rate FiO2 02/19/17 11:43 77 145/81 02/19/17 07:30 97.4 68 98 Intake and Output 02/18/17 02/18/17 02/19/17 15:00 23:00 07:00 Intake Total 1220 ml 1100 ml 1000 ml Output Total 500 ml 200 ml 450 ml Balance 720 ml 900 ml 550 ml Exam GENERAL: VITAL SIGNS: per chart NECK: Supple. No JVD or lymphadenopathy. CARDIAC EXAM: S1, S2. No added sounds or murmurs. CHEST: clear bilaterally, No added sounds, rales or wheezes ABDOMEN: Soft, nontender. No guarding or rebound. EXTREMITIES: No cyanosis, clubbing or edema. NEUROLOGIC: Hemiplegia Results/Medications Result Diagram: 02/18/17 0614 02/18/17 0615 Medications Current Medications Docusate Sodium (Colace) 100 mg BID PO Last administered on 02/19/17 08:37; Admin Dose 100 MG; Start 02/04/17 at 21:00 Senna (Senokot) 1 tab QHS PO Last administered on 02/17/17 20:23; Admin Dose 1 TAB; Start 02/04/17 at 21:00 Acetaminophen (Tylenol Tab) 650 mg Q4H PRN PO PAIN; Start 02/04/17 at 17:30 Bisacodyl (Dulcolax Supp) 10 mg DAILY PRN [place] CONSTIPATION; Start 02/04/17 at 17 :30 Magnesium Hydroxide (Milk Of Mag) 30 ml BID PRN [place] CONSTIPATION; Start at 17:30 Lactulose (Enulose) 20 gm DAILY PRN [place] CONSTIPATION; Start 02/04/17 at 17:30 Acetaminophen (Tylenol Tab) 650 mg Q6H PRN PO PAIN LEVEL 1-3 OR FEVER; Start at 17:30 Acetaminophen/ Hydrocodone Bitart ([place] (5/325)) 1 tab Q6H PRN PO MODERATE PAIN LEVEL 4-6 Last administered on 02/15/17 20:19; Admin Dose 1 TAB; Start at 17:30 Docusate Sodium (Colace) 100 mg Q12H PRN PO CONSTIPATION; Start 02/04/17 at 17: 30 Sodium Biphosphate/ Sodium Phosphate (Fleet Enema) 133 ml DAILY PRN [place] CONSTIPATION; Start 02/04/17 at 17:30 Nitroglycerin (Nitroglycerin (Sl Tab) 0.4 Mg) 1 tab Q5M PRN [place] ANGINA; Start at 17:30 Atorvastatin Calcium (Lipitor) 80 mg HS PO Last administered on 02/18/17 21:54 ; Admin Dose 80 MG; Start 02/04/17 at 21:00 Carvedilol (Coreg) 12.5 mg BID PO Last administered on 02/19/17 08:36; Admin Dose 12.5 MG; Start 02/04/17 at 21:00 Aspirin (Halfprin) 81 mg DAILY PO Last administered on 02/19/17 08:36; Admin Dose 81 MG; Start 02/05/17 at 09:00 Nifedipine (Procardia Xl) 120 mg DAILY PO Last administered on 02/19/17 08:36; Admin Dose 120 MG; Start 02/05/17 at 09:00 Naproxen (Naprosyn) 500 mg Q8H PRN PO PAIN; Start 02/07/17 at 12:30 Clonidine (Catapres) 0.1 mg Q8H PRN PO ELEVATED BLOOD PRESSURE Last administered on 02/12/17 09:13; Admin Dose 0.1 MG; Start 02/08/17 at 13:00 Valsartan (Diovan) 160 mg BID PO Last administered on 02/19/17 08:35; Admin Dose 160 MG; Start 02/17/17 at 21:00 Assessment/Plan Chief Complaint/Hosp Course IMP: 1. s/p Thalamic infarct resulting in right hemiparesis with gradual clinical improvement. 2. Hypertension RECS: 1. BP control currently on valsartan, carvedilol, nifedipine XL. Will need increase valsartan to 320 mg p.o. daily. If this is insufficient I will increase carvedilol to 25 mg p.o. twice daily. 2. Rehab 3. DVT and GI prophylaxis Problems: MIC[facility] DUNBAR [facility], [facility] Feb 19, 2017 12:49
[2017-02-19 19:38] VITALS: BP 158/95; RESP 18
[2017-02-19] MEDS: ATORVASTATIN 80 MG TAB PO SCH (20:44)
[2017-02-19] MEDS: SENNA TAB PO SCH (20:45)
[2017-02-19] MEDS: HYDROCODONE/APAP (5/325) TAB PO PRN (20:46)
[2017-02-20 07:43] VITALS: BP 153/81; RESP 18
[2017-02-20] MEDS: NIFEdipine (XL) 60 MG TAB PO SCH (08:58)
[2017-02-20] MEDS: ASPIRIN (EC) 81 MG TAB PO SCH (08:59)
[2017-02-20] MEDS: DOCUSATE SODIUM 100 MG CAP PO SCH (08:59)
[2017-02-20] MEDS: VALSARTAN 160 MG TAB PO SCH (08:59)
[2017-02-20] MEDS: HYDROCODONE/APAP (5/325) TAB PO PRN (08:59)
--- NOTE | 2017-02-20 11:12 | DS ---
Date/Time of Note Date/Time of Note DATE: 02/20/17 TIME: 11:09 Discharge Summary Admission/Discharge Info Admit Date/Time Feb 04, 2017 at 16:44 Discharge Date/Time Discharge Diagnosis 1. Acute left thalamic ischemic cerebrovascular accident, with R dominant hemiparesis, impaired mobility/gait/ADLs/cognition, dysphagia. 2. Dysphagia 3. Hypertension. 4.Dyslipidemia. 5. Improved Self care, mobility and cognition Patient Condition: Good Hx of Present Illness Patient was admitted for comprehensive interdisciplinary acute rehab made excellent functional gains during the course of the stay. Patient progressed from initial moderate to maximal assist for self-care mobility tasks and progress to the point of standby assist for self-care and mobility tasks. Patient's family did receive caregiver training and was able to demonstrate safe carryover of technique. Discharge equipment recommendations include front wheel walker bedside commode shower chair and wheelchair for community [facility] Course IMP: 1. s/p Thalamic infarct resulting in right hemiparesis with gradual clinical improvement. 2. Hypertension RECS: 1. BP control currently on valsartan, carvedilol, nifedipine XL. Will need increase valsartan to 320 mg p.o. daily. If this is insufficient I will increase carvedilol to 25 mg p.o. twice daily. 2. Rehab 3. DVT and GI prophylaxis Home Meds Active Scripts Nifedipine (Afeditab CR) 60 Mg Tablet.sa, 120 MG PO DAILY for 30 Days Prov:JOSIE NAPIER MD 02/04/17 Clonidine Hcl* (Catapres*) 0.1 Mg Tablet, 0.1 MG PO Q8 Y for ELEVATED BLOOD PRESSURE for 30 Days, TAB Prov:JOSIE NAPIER MD 02/04/17 Carvedilol* (Carvedilol*) 12.5 Mg Tablet, 12.5 MG PO BID for 30 Days, TAB Prov:JOSIE NAPIER MD 02/04/17 Atorvastatin* (Atorvastatin*) 80 Mg Tablet, 80 MG PO HS for 30 Days, TAB Prov:JOSIE NAPIER MD 02/04/17 Ipratropium-Albuterol (Ipratropium-Albuterol) 0.5-3 Mg/3 Ml Ampul.neb, 3 ML HHN Q4H RESP THERAPY Y for SHORTNESS OF BREATH for 30 Days Prov:JOSIE NAPIER MD 02/04/17 Magnesium Hydroxide* (Cobos' MOM*) 30 Ml Susp, 30 ML PO DAILY Y for CONSTIPATION for 30 Days Prov:JOSIE NAPIER MD 02/04/17 Docusate Sodium (Dok) 100 Mg Capsule, 100 MG PO Q12H Y for CONSTIPATION for 30 Days, CAP Prov:JOSIE NAPIER MD 02/04/17 Hydrocodone Bit-Acetaminophen (Hydrocodone Bit-APAP) 5-325MG Tablet, 1 TAB PO Q6H Y for MODERATE PAIN LEVEL 4-6 for 30 Days, TAB Prov:JOSIE NAPIER MD 02/04/17 Aspirin* (Aspirin* EC) 81 Mg Tablet.dr, 81 MG PO DAILY for 30 Days Prov:JOSIE NAPIER MD 02/04/17 Acetaminophen (MAPAP) 325 Mg Tablet, 650 MG PO Q6H Y for PAIN LEVEL 1-3 OR FEVER for 30 Days, TAB Prov:JOSIE NAPIER MD 02/04/17 Nitroglycerin* (Nitrostat*) 0.4 Mg Tab.subl, 1 TAB SL Q5M Y for ANGINA for 1 Day Prov:JOSIE NAPIER MD 02/04/17 Follow-up Plan Home health physical therapy occupational therapy and nursing. Follow-up with lineworker Primary Care Provider Care Physician No Primary Time spent on discharge: > 30 minutes DAYANARA GRESHAM MD Feb 20, 2017 11:12
== END 2017-02-20 14:36 | disposition home health service (06) | DRG 57 ==
LOC: VRC 16:44
PROVIDERS: ADMIT Physical Medicine & Rehabilitation; ATTEND Internal Medicine Pulmonary Disease
DX: I69.351 Hemiplegia and hemiparesis following cerebral infarction affecting right dominant side (principal); R13.10 Dysphagia, unspecified; I10 Essential (primary) hypertension; I69.392 Facial weakness following cerebral infarction; I69.391 Dysphagia following cerebral infarction; I69.319 Unspecified symptoms and signs involving cognitive functions following cerebral infarction; E78.5 Hyperlipidemia, unspecified; M10.9 Gout, unspecified; R26.89 Other abnormalities of gait and mobility; Z79.82 Long term (current) use of aspirin
CPT/HCPCS: 73620; 80048; 80053; 81003; 83735; 84100; 84560; 85025; 87081; 87086; 92507; 92523; 92526; 92610; 97110; 97112; 97116; 97150; 97163; 97167; 97530; 97535; 97542; L1820; L1932; L2820

== ENCOUNTER 2017-07-29 09:42 | Observation (INO) | payer MEDICAID, OTHER ==
[~2017-07-29] VITALS: Ht 182.9 cm; Wt 92.2 kg
[~2017-07-29 09:42] MED LIST changes: +ACET325T40 PO; -AMLO-218 PO; +ASPI-664 PO; -ASPI-781 PO; +ATOR80TA75 PO; +CARV12.579 PO; +CLON0.1T14 PO; -DOCU-144 PO; +DOCU-216 PO; -FER325 PO; +HYDR-3498 PO; -HYDR-3504 PO; +IPRA3AMP HHN; -LISI-525 PO; -METO-429 PO; +NIFE60TA7 PO; +NITR0.4T39 SL; -POLY17PO6 PO; +UDMOM PO
--- NOTE | 2017-07-29 12:04 | ERD ---
ER Documentation Chief Complaint Chief Complaint ap since this am HPI She is a 56-year-old male who awoke with sudden onset, severe right lower quadrant abdominal pain this morning. He denies vomiting or fever. He reports that the pain has since resolved. He does have a small amount of right-sided back pain at this time. He rates it 2 out of 10. He denies hematuria or dysuria. ROS All systems reviewed and are negative except as per history of present illness. Medications Home Meds Active Scripts Nifedipine (Afeditab CR) 60 Mg Tablet.sa, 120 MG PO DAILY for 30 Days Prov:JOSIE NAPIER MD 02/04/17 Clonidine Hcl* (Catapres*) 0.1 Mg Tablet, 0.1 MG PO Q8 Y for ELEVATED BLOOD PRESSURE for 30 Days, TAB Prov:JOSIE NAPIER MD 02/04/17 Carvedilol* (Carvedilol*) 12.5 Mg Tablet, 12.5 MG PO BID for 30 Days, TAB Prov:JOSIE NAPIER MD 02/04/17 Atorvastatin* (Atorvastatin*) 80 Mg Tablet, 80 MG PO HS for 30 Days, TAB Prov:JOSIE NAPIER MD 02/04/17 Ipratropium-Albuterol (Ipratropium-Albuterol) 0.5-3 Mg/3 Ml Ampul.neb, 3 ML HHN Q4H RESP THERAPY Y for SHORTNESS OF BREATH for 30 Days Prov:JOSIE NAPIER MD 02/04/17 Magnesium Hydroxide* (Cobos' MOM*) 30 Ml Susp, 30 ML PO DAILY Y for CONSTIPATION for 30 Days Prov:JOSIE NAPIER MD 02/04/17 Docusate Sodium (Dok) 100 Mg Capsule, 100 MG PO Q12H Y for CONSTIPATION for 30 Days, CAP Prov:JOSIE NAPIER MD 02/04/17 Hydrocodone Bit-Acetaminophen (Hydrocodone Bit-APAP) 5-325MG Tablet, 1 TAB PO Q6H Y for MODERATE PAIN LEVEL 4-6 for 30 Days, TAB Prov:JOSIE NAPIER MD 02/04/17 Aspirin* (Aspirin* EC) 81 Mg Tablet.dr, 81 MG PO DAILY for 30 Days Prov:JOSIE NAPIER MD 02/04/17 Acetaminophen (MAPAP) 325 Mg Tablet, 650 MG PO Q6H Y for PAIN LEVEL 1-3 OR FEVER for 30 Days, TAB Prov:JOSIE NAPIER MD 02/04/17 Nitroglycerin* (Nitrostat*) 0.4 Mg Tab.subl, 1 TAB SL Q5M Y for ANGINA for 1 Day Prov:JOSIE NAPIER MD 02/04/17 Allergies Allergies: Coded Allergies: No Known Allergy (Unverified , 01/25/17) PMhx/Soc Past medical history: Stroke, hypertension Past surgical history: Denies Social history: Occasional cannabis use, denies tobacco or alcohol History of Surgery: Yes (bone marrow transplant 1998, wrist sx) Anesthesia Reaction: No Hx Neurological Disorder: Yes (CVA) Hx Respiratory Disorders: No Hx Cardiac Disorders: Yes Hx Psychiatric Problems: No Hx Miscellaneous Medical Probl: Yes (HTN, uncontrolled BP, dyslipidemia) Hx Alcohol Use: No Hx Substance Use: No Hx Tobacco Use: Yes FmHx Noncontributory Physical Exam Vitals Vital Signs Date Time Temp Pulse Resp B/P Pulse Ox O2 Delivery O2 Flow Rate FiO2 07/29/17 13:25 65 16 244/130 99 Room Air 07/29/17 09:43 99.6 88 18 229/123 99 Physical Exam Const: Alert, no acute distress Head: Atraumatic Eyes: Normal Conjunctiva, no pallor, no icterus ENT: Normal External Ears, Nose and Mouth. Mucous membranes moist Neck: Full range of motion. Resp: Clear to auscultation bilaterally no wheezes, no rales Cardio: Regular rate and rhythm, no murmurs Abd: Soft, non tender, non distended. No rebound or guarding Skin: No petechiae or rashes Back: No midline tenderness, mild right paraspinal tenderness, equivocal right CVA tenderness Ext: No cyanosis, or edema Neur: Awake and alert, chronic right leg weakness, no facial droop, strength intact in bilateral upper extremities Psych: Normal Mood and Affect Result Diagram: 07/29/17 1255 Results 24 hrs Laboratory Tests Test 07/29/17 12:55 07/29/17 13:15 Sodium Level 146mmol/L Potassium Level 4.6mmol/L Chloride Level 104mmol/L Carbon Dioxide Level 29mmol/L Anion Gap 18 Blood Urea Nitrogen 16mg/dl Creatinine 1.69mg/dl Glucose Level 118mg/dl Calcium Level 10.7mg/dl Urine Color STRAW Urine Clarity CLEAR Urine pH 8.0 Urine Specific [place] 1.010 Urine Ketones NEGATIVEmg/dL Urine Nitrite NEGATIVEmg/dL Urine Bilirubin NEGATIVEmg/dL Urine Urobilinogen NEGATIVEmg/dL Urine Leukocyte Esterase NEGATIVELeu/ul Urine Microscopic RBC 168/HPF Urine Microscopic WBC 18/HPF Urine Hemoglobin 3+mg/dL Urine Glucose NEGATIVEmg/dL Urine Total Protein 1+mg/dl Current Medications Medications (Trade) Dose Ordered Sig/[place] Route PRN Reason Start Time Stop Time Status Last Admin Dose Admin Clonidine (Catapres) 0.1 mg ONCE ONCE PO 07/29/17 12:00 07/29/17 12:01 DC 07/29/17 12:29 Dicyclomine HCl (Bentyl) 10 mg ONCE ONCE PO 07/29/17 13:30 07/29/17 13:31 DC 07/29/17 14:05 Morphine Sulfate (morphine) 4 mg ONCE STAT IV 07/29/17 14:13 07/29/17 14:15 DC Labetalol HCl 10 mg 10 mg ONCE ONCE IV 07/29/17 15:00 07/29/17 15:01 DC Ceftriaxone Sodium (Rocephin) 50 ml @ 100 mls/hr ONCE ONCE IVPB 07/29/17 15:00 07/29/17 15:29 Procedures/MDM MDM: Patient is a 56-year-old male who presents to the ER with right-sided abdominal and back pain. CT scan is consistent with 3.5 mm right ureteral stone. The patient has history of hypertension and states that he has been compliant with medications and usually has a baseline blood pressure of 140/80. In the ER he had a blood pressure is high as 240/140. Due to his history of stroke, I was concerned about the need to better control his blood pressure. He was given pain control and a dose of clonidine without improvement. I will give him a dose of labetalol, and if this is not successful in controlling his blood pressure, he may require Cardene drip. Admit him to monitored bed. His urinalysis had some WBCs, so I will treat him with ceftriaxone and sent a culture. He has no signs of sepsis. He has no acute neurologic symptoms or cardiopulmonary symptoms to suggest endorgan dysfunction from hypertension. He does have an increase in his creatinine to 1.67 from prior of 1.16 months ago. The time course of this increase is unclear, but I cannot exclude an acute renal impairment due to hypertension. Departure Diagnosis: Primary Impression: Hypertensive urgency Additional Impressions: Ureteral stone with hydronephrosis UTI (urinary tract infection) Urinary tract infection type: site unspecified Hematuria presence: with hematuria Qualified Code: N39.0 - Urinary tract infection with hematuria, site unspecified Renal insufficiency Condition: DONNY Gutierrez MD Jul 29, 2017 12:04
[2017-07-29 13:28] LABS: CALCIUM 10.7 mg/dl (8.4-10.2); CREATININE 1.69 mg/dl (0.61-1.24); POTASSIUM 4.6 mmol/L (3.5-5.1)
[2017-07-29] MEDS ORDERED: DICYCLOMINE 10 MG CAP PO ONE (13:30)
[2017-07-29 13:54] LABS: ADD UMIC YES; UR ASCORBIC ACID NEGATIVE (NEGATIVE); UR BILIRUBIN (Dip) NEGATIVE (NEGATIVE); UR BLOOD (Dip) 3+ mg/dL (NEGATIVE); UR CLARITY CLEAR (CLEAR); UR COLOR STRAW (YELLOW); UR GLUCOSE (Dip) NEGATIVE (NEGATIVE); UR KETONES (Dip) NEGATIVE (NEGATIVE); UR LEUKOCYTE ESTERASE (Dip) NEGATIVE Leu/ul (NEGATIVE); UR NITRITE (Dip) NEGATIVE (NEGATIVE); UR RBC 168 /HPF (0-5); UR TOTAL PROTEIN (Dip) 1+ mg/dl (NEGATIVE); UR UROBILINOGEN (Dip) NEGATIVE (NEGATIVE)
--- NOTE | 2017-07-29 14:09 | RADRPT ---
PROCEDURE: CT ABDOMEN AND PELVIS WITHOUT CONTRAST. CLINICAL INDICATION: Right lower quadrant abdominal pain TECHNIQUE: CT scan of the abdomen and pelvis without contrast was performed on a multidetector hig h-resolution CT scanner. The patient was scanned without intravenous contrast. Coronal and sagittal reformatted images were obtained from the axial source images. Images were reviewed on a [employer] PACS workstation. The total exam CTDI equals 16.5 mGy and the total exam DLP equals 1035 mGy-c m. One or more of the following dose reduction techniques were used: Automated exposure control. Adjustment of the mA and/or kV according to patient size. Use of iterative reconstruction technique. DICOM images are available COMPARISON: None FINDINGS: CT abdomen: The lung bases are clear. The heart size is within limits. There is no significant pericardial effus ion. Hepatic morphology is within limits. No gross contour deforming masses. Gallbladder is unremarkable. No evidence of intrahepatic or extrahepatic biliary dilatation. The spleen and pancreas are within normal limits. Both adrenal glands are within normal limits. Both kidneys are and normal anatomic position. There is moderate amount of right perinephric fluid a nd mild to moderate right-sided hydronephrosis, secondary to a 3.5 mm stone within the right mid ure ter. The left kidney is within normal limits. The visualized GI tract demonstrates normal caliber loops of small and large bowel. No evidence of b owel. There is colonic diverticulosis. The appendix is within normal limits. No evidence of bowel ob struction. Fat-containing umbilical hernia is noted. Atherosclerotic calcification of the aorta is identified. There is no same retroperitoneal lymphaden opathy. CT pelvis: The bladder is within normal limits. The prostate gland is mildly enlarged. There is sigmoid diverti culosis. No significant free fluid. No significant pelvic lymphadenopathy. The visualized osseous structures demonstrates multilevel degenerative disease of the spine. IMPRESSION: 1. MODERATE AMOUNT OF RIGHT PERINEPHRIC FLUID AND MILD TO MODERATE RIGHT-SIDED HYDRONEPHROSIS SECOND ELVA TO A 3.5 MM STONE WITHIN THE RIGHT MID URETER, CONSISTENT WITH OBSTRUCTIVE UROPATHY. 2. Diffuse colonic diverticulosis. No obstruction. The appendix is within limits. 3. Mild atherosclerotic disease of the aorta. 4. Fat-containing umbilical hernia. 5. Prostamegaly RPTAT: AAPP Dalia Ferrara, Physician Date Time Electronically viewed and signed by Dalia Ferrara, Physician on 07/29/2017 14:08 JL/
[2017-07-29] MEDS ORDERED: morphine 4 MG/ML VIAL IV STA (14:13)
[2017-07-29] MEDS ORDERED: CEFTRIAXONE 1 GM/50 ML (PMX) 50 ML IVPB ONE (15:00)
[2017-07-29] MEDS ORDERED: LABETALOL HCL 20MG INJ IV ONE ×2 (15:00→16:00)
[2017-07-29] MEDS ORDERED: ONDANSETRON 4 MG INJ IV PRN (15:30)
[2017-07-29] MEDS ORDERED: ACETAMINOPHEN 325 MG TAB PO PRN (15:30)
[2017-07-29 15:39] LABS: BASOPHILS % 0.3 % (0.0-2.0); EOSINOPHILS % 0.2 % (0.0-7.0); HEMATOCRIT 48.8 % (42.0-52.0); HEMOGLOBIN 17.4 g/dl (14.0-18.0); LYMPHOCYTES # 1.2 10^3/ul (0.8-2.9); LYMPHOCYTES % 10.5 % (15.0-51.0); MEAN CORPUSCULAR HEMOGLOBIN 32.2 pg (29.0-33.0); MEAN CORPUSCULAR HGB CONC 35.7 g/dl (32.0-37.0); MEAN CORPUSCULAR VOLUME 90.4 fl (82.0-101.0); MEAN PLATELET VOLUME 9.8 fl (7.4-10.4); MONOCYTE # 0.6 10^3/ul (0.3-0.9); NEUTROPHIL # 9.9 10^3/ul (1.6-7.5); NEUTROPHILS % 83.6 % (39.0-77.0); PLATELET COUNT 176 10^3/UL (140-415); RED CELL DISTRIBUTION WIDTH 12.7 % (11.5-14.5); WHITE BLOOD COUNT 11.9 10^3/ul (4.8-10.8)
[2017-07-29] MEDS ORDERED: CARV25TA79 PO (16:36)
[2017-07-29 16:50] VITALS: TEMP 99.6
[2017-07-29] MEDS ORDERED: hydrALAzine 20 MG INJ IV ONE ×2 (17:00→18:30)
--- NOTE | 2017-07-29 17:49 | HP ---
Date/Time of Note Date/Time of Note DATE: 07/29/17 TIME: 17:48 Assessment/Plan VTE Prophylaxis VTE Prophylaxis Intervention: SCD's Assessment/Plan Assessment/Plan 56 yo M with pmhx HTN with resultant CVA here with 1 day of abd pain found to be in hypertensive urgency v emergency and with obstructive uropathy from 3.5 mm R ureteral stone PLAN #HTN: cardene drip to goal SBP<180 given unclear just how adherent pt was to home BP meds and multiple agents have failed to result in BP improvement -resume home meds in AM #obstructive uropathy: to see in AM IVFs, flomax, empiric abx for possible UTI pending further culture data #LISSY: from HTN urgency v kidney stone fluids and BP control as above #hx CVA: asa, statin, BP control as above a1c 5.1 6 mos ago FEN DM diet Prophx DVT HPI/ROS Admit Date/Time Admit Date/Time Hx of Present Illness CC HTN urgency HPI 56 yo M with pmhx HTN, CVA 6 mos ago from HTN here with 1 day of abd pain. Denies fever, +chills. No chest pain or SOB. As I entered the room to examine the patient, he began profusely vomiting onto the floor. Vomited 3 times in total, no blood just gastric contents. No rashes, no numbness/tingling/ weakness. no dysuria or hematuria. no headache Reports adherence to his meds but per [facility] has never filled his rx's BP in ER markedly elevated Of note, [facility]U dc meds list reviewed. Pt supposed to be on ccb, bb but also clonidine. also should be on statin and asa PMH/Family/Social Past Medical History as per [facility] Social History lives in the community Smoking Status: Former smoker Exam/Review of Systems Vital Signs Vitals Vital Signs Date Time Temp Pulse Resp B/P Pulse Ox O2 Delivery O2 Flow Rate FiO2 07/29/17 16:50 99.6 69 16 201/130 99 Room Air Exam Exam face flushed from just having vomited EOMI MMM no mrg lungs clear abd soft no rashes no edema moves exts freely Cr higher than baseline CT with 3.5 mm kidney stone with resultant hydro Labs Result Diagram: 07/29/17 1255 07/29/17 1255 Medications Medications Current Medications Diltiazem HCl (Cardizem-D5W 125 Mg/125 ml Drip) 125 ml @ 5 mls/hr TITRATE IV ; Start 07/29/17 at 18:00; Status UNV CLAUDIO ISABEL MD Jul 29, 2017 17:49
[2017-07-29] MEDS ORDERED: DILTIAZEM-D5W 125MG/125ML DRIP 125 ML IV SCH (18:00)
[2017-07-29] MEDS ORDERED: NACL 0.9% 3 ML SYG IV SCH (18:00)
[2017-07-29] MEDS ORDERED: ONDANSETRON 4 MG TAB PO PRN ×2 (19:00)
[2017-07-29] MEDS ORDERED: ONDANSETRON (ODT) 4 MG TAB ODT PRN ×2 (19:00)
[2017-07-29 20:01] VITALS: PULSE 75
[2017-07-29] MEDS: ATORVASTATIN 80 MG TAB PO SCH (21:34)
[2017-07-29] MEDS: TAMSULOSIN (SR) 0.4 MG CAP PO SCH (21:35)
[2017-07-29] MEDS: SOD CHLORIDE 0.9% 1,000 ML IV SCH (21:36)
[2017-07-29 21:39] VITALS: PULSE 95
[2017-07-29 21:50] VITALS: BP 182/115; RESP 20
[2017-07-29 22:10] VITALS: BP 170/105; PULSE 85
[2017-07-29 22:20] VITALS: Ht 182.9 cm; Wt 92.2 kg
[2017-07-29 22:38] VITALS: BP 173/101; PULSE 86
[2017-07-30] VITALS (12 sets, daily range): BP systolic 128–168; BP diastolic 74–98; PULSE 65–83; RESP 18–20
[2017-07-30] MEDS: SOD CHLORIDE 0.9% 1,000 ML IV SCH ×3 (03:30→16:46)
[2017-07-30 07:53] LABS: BILIRUBIN,INDIRECT 1.6 mg/dl (0-1.1); BILIRUBIN,TOTAL 1.6 mg/dl (0.2-1.3); MAGNESIUM 1.8 mg/dl (1.7-2.5)
[2017-07-30 07:56] LABS: ALBUMIN 3.7 g/dl (3.3-4.9); CALCIUM 9.4 mg/dl (8.4-10.2); CREATININE 2.48 mg/dl (0.61-1.24); TOTAL PROTEIN 6.7 g/dl (6.1-8.1)
[2017-07-30 08:01] LABS: BASOPHIL # 0.1 10^3/ul (0.0-0.1); BASOPHILS % 0.4 % (0.0-2.0); EOSINOPHILS % 0.2 % (0.0-7.0); HEMATOCRIT 44.1 % (42.0-52.0); HEMOGLOBIN 15.6 g/dl (14.0-18.0); LYMPHOCYTES # 1.6 10^3/ul (0.8-2.9); LYMPHOCYTES % 13.1 % (15.0-51.0); MEAN CORPUSCULAR HEMOGLOBIN 32.3 pg (29.0-33.0); MEAN CORPUSCULAR HGB CONC 35.4 g/dl (32.0-37.0); MEAN CORPUSCULAR VOLUME 91.3 fl (82.0-101.0); MEAN PLATELET VOLUME 10.1 fl (7.4-10.4); MONOCYTE # 1.2 10^3/ul (0.3-0.9); MONOCYTES % 9.8 % (0.0-11.0); NEUTROPHIL # 9.5 10^3/ul (1.6-7.5); NEUTROPHILS % 76.1 % (39.0-77.0); PLATELET COUNT 162 10^3/UL (140-415); RED BLOOD COUNT 4.83 10^6/ul (4.70-6.10); RED CELL DISTRIBUTION WIDTH 12.5 % (11.5-14.5); WHITE BLOOD COUNT 12.4 10^3/ul (4.8-10.8)
[2017-07-30] MEDS ORDERED: CEFTRIAXONE 1 GM INJ IM ONE (09:00)
[2017-07-30] MEDS: ASPIRIN 81 MG TAB PO SCH (09:01)
[2017-07-30] MEDS: NIFEdipine (XL) 60 MG TAB PO SCH (09:01)
[2017-07-30] MEDS: ENOXAPARIN 40 MG/0.4 ML SYG SC SCH (09:03)
--- NOTE | 2017-07-30 09:04 | CONS ---
Date/Time of Note Date/Time of Note DATE: 07/30/17 TIME: 08:53 Assessment/Plan Assessment/Plan Chief Complaint/Hosp Course 56-year-old male with history of hypertension and cerebrovascular accident was persistent right upper and right lower extremity weakness resented to the hospital with right flank pain was nausea and vomiting. CT scan showed a 3.5 mm stone in the right ureter was hydronephrosis. Patient does have leukocytosis. He is comfortable today and there is no flank tenderness now. Continue tamsulosin, may put him on oral antibiotic, strain the urine for stones and if he has no pain today send him home and follow-up as an outpatient. Should he have severe pain he should him back to the emergency room and reevaluated Problems: Consultation Date/Type/Reason Admit Date/Time July 29, 2017 Date of Consultation: Jul 30, 2017 Type of Consultation: Urology Reason for Consultation Right ureteral stone Hx of Present Illness 56-year-old male with pmhx HTN, CVA 6 mos ago from HTN presented with 1 day history of abd pain associated with nausea and vomiting. Denies fever, +chills. No chest pain or SOB. He underwent a CT scan of the abdomen and pelvis and that showed a 3.5 mm stone in the right ureter just at the level of the upper edge of the iliac crest Constitutional: no complaints Eyes: no complaints ENT: no complaints Respiratory: no complaints Cardiovascular: no complaints Gastrointestinal: nausea (Yesterday), vomiting (Yesterday) Genitourinary: No dysuria, No flank pain (He did have flank pain yesterday), No hematuria Musculoskeletal: no complaints Skin: no complaints Neurologic: other (Right hemiparesis) Endocrine: no complaints Lymphatic: no complaints Past Medical History Medical History: hypertension, other (CVA, the right upper and lower extremities still weak) Past Surgical History Past Surgical Hx: other (Left leg broken bone surgery) Family History Significant Family History: no pertinent family hx Social History Alcohol Use: rarely Smoking Status: Former smoker Drug Use: marijuana Exam/Review of Systems Vital Signs Vitals Vital Signs Date Time Temp Pulse Resp B/P Pulse Ox O2 Delivery O2 Flow Rate FiO2 07/30/17 08:29 97.8 69 19 142/80 95 07/29/17 20:25 Room Air Intake and Output 07/29/17 07/29/17 07/30/17 15:00 23:00 07:00 Intake Total 1338 ml Balance 1338 ml Exam Constitutional: alert, oriented Psych: no complaints Head: normocephalic Eyes: nl conjunctiva ENMT: nl external ears & nose Neck: supple Respiratory: normal air movement Cardiovascular: nl pulses Gastrointestinal: soft Genitourinary - Male: nl penis, nl scrotum, other (Rectal exam: prostate is soft), No CVA tenderness Musculoskeletal: nl extremities to inspection Extremities: other (Scar on his left leg from prior bone surgery) Neurological: focal weakness (Right upper and lower extremity) Skin: nl turgor Results Result Diagram: 07/30/1733 07/30/17 0633 Results 24 hrs Laboratory Tests Test 07/29/17 12:55 07/29/17 13:15 07/30/17 06:33 White Blood Count 11.9 #H 12.4 H Red Blood Count 5.40 # 4.83 Hemoglobin 17.4 # 15.6 Hematocrit 48.8 # 44.1 Mean Corpuscular Volume 90.4 91.3 Mean Corpuscular Hemoglobin 32.2 32.3 Mean Corpuscular Hemoglobin Concent 35.7 35.4 Red Cell Distribution Width 12.7 12.5 Platelet Count 176 162 Mean Platelet Volume 9.8 10.1 Neutrophils % 83.6 H 76.1 Lymphocytes % 10.5 L 13.1 L Monocytes % 5.0 9.8 Eosinophils % 0.2 0.2 Basophils % 0.3 0.4 Nucleated Red Blood Cells % 0.0 0.0 Neutrophils # 9.9 H 9.5 H Lymphocytes # 1.2 1.6 Monocytes # 0.6 1.2 H Eosinophils # 0.0 0.0 Basophils # 0.0 0.1 Nucleated Red Blood Cells # 0.0 0.0 Sodium Level 146 H 142 Potassium Level 4.6 4.0 Chloride Level 104 107 Carbon Dioxide Level 29 24 Anion Gap 18 H 15 Blood Urea Nitrogen 16 26 H Creatinine 1.69 H 2.48 H Glucose Level 118 117 Calcium Level 10.7 H 9.4 Urine Color STRAW Urine Clarity CLEAR Urine pH 8.0 Urine Specific [place] 1.010 Urine Ketones NEGATIVE Urine Nitrite NEGATIVE Urine Bilirubin NEGATIVE Urine Urobilinogen NEGATIVE Urine Leukocyte Esterase NEGATIVE Urine Microscopic RBC 168 H Urine Microscopic WBC 18 H Urine Hemoglobin 3+ H Urine Glucose NEGATIVE Urine Total Protein 1+ H Magnesium Level 1.8 Total Bilirubin 1.6 H Direct Bilirubin 0.00 Indirect Bilirubin 1.6 H Aspartate Amino Transf (AST/SGOT) 29 Alanine Aminotransferase (ALT/SGPT) 37 Alkaline Phosphatase 74 Total Protein 6.7 Albumin 3.7 Imaging Free Text/Dictation CT scan of the abdomen and pelvis: 1. MODERATE AMOUNT OF RIGHT PERINEPHRIC FLUID AND MILD TO MODERATE RIGHT-SIDED HYDRONEPHROSIS SECONDARY TO A 3.5 MM STONE WITHIN THE RIGHT MID URETER, CONSISTENT WITH OBSTRUCTIVE UROPATHY. 2. Diffuse colonic diverticulosis. No obstruction. The appendix is within limits. 3. Mild atherosclerotic disease of the aorta. 4. Fat-containing umbilical hernia. 5. Prostamegaly Medications Medications Current Medications Diltiazem HCl (Cardizem-D5W 125 Mg/125 ml Drip) 125 ml @ 5 mls/hr TITRATE IV Last administered on 07/29/17 20:05; Admin Dose 5 MLS/HR; Start 07/29/17 at 18:00 Enoxaparin Sodium (Lovenox) 40 mg DAILY SC ; Start 07/30/17 at 09:00 Carvedilol (Coreg) 25 mg BID PO Last administered on 07/29/17 21:35; Admin Dose 25 MG; Start 07/29/17 at 21:00 Nifedipine (Procardia Xl) 120 mg DAILY PO ; Start 07/30/17 at 09:00 Ondansetron HCl (Zofran Tab) 4 mg Q4H PRN PO nausea; Start 07/29/17 at 19:00 Ondansetron HCl (Zofran Tab) 8 mg Q4H PRN PO nausea Last administered on 00:21; Admin Dose 8 MG; Start 07/29/17 at 19:00 Tamsulosin HCl (Flomax) 0.4 mg QHS PO Last administered on 07/29/17 21:35; Admin Dose 0.4 MG; Start 07/29/17 at 21:00 Ceftriaxone Sodium 1 gm 1 gm Q24H ONCE IM ; Start 07/30/17 at 09:00; Stop at 09:01 Sodium Chloride (NS) 1,000 ml @ 125 mls/hr Q8H IV Last administered on 03:30; Admin Dose 125 MLS/HR; Start 07/29/17 at 19:30 Aspirin (Aspirin) 81 mg DAILY PO ; Start 07/30/17 at 09:00 Atorvastatin Calcium (Lipitor) 80 mg QHS PO Last administered on 07/29/17t 21: 34; Admin Dose 80 MG; Start 07/29/17 at 21:00 Influenza Virus Vaccine (Fluzone) 0.5 ml ONCE ONCE IM* ; Start 07/31/17 at 09: 00; Stop 07/31/17 at 09:01 STEPHANIE SMALLS MD Jul 30, 2017 09:04
[2017-07-30] MEDS ORDERED: CEFTRIAXONE 1 GM INJ IVPB ONE (10:00)
[2017-07-30] MEDS ORDERED: CEFTRIAXONE 1 GM/NS 50 ML IVPB SCH (10:30)
--- NOTE | 2017-07-30 12:14 | PN ---
Date/Time of Note Date/Time of Note DATE: 07/30/17 TIME: 12:10 Assessment/Plan VTE Prophylaxis VTE Prophylaxis Intervention: SCD's Lines/Catheters IV Catheter Type (from Nrs): Saline Lock Urinary Cath still in place: No Assessment/Plan Assessment/Plan 56 yo M with pmhx HTN with resultant CVA here with 1 day of abd pain found to be in hypertensive urgency v emergency and with obstructive uropathy from 3.5 mm R ureteral stone PLAN #HTN: BP at goal after just 5 hours on Cardene drip -cont home bb/ccb #obstructive uropathy: sp eval IVFs, flomax, empiric abx for possible UTI pending further culture data #LISSY: not improved which is surprising given improved BP control ZAIRE, urine lytes, repeat UA and check urine p/c fluids and BP control as above #hx CVA: asa, statin, BP control as above a1c 5.1 6 mos ago CM cs for PCP FEN cardiac diet Prophx DVT downgrade from tele to med surg Subjective 24 Hr Interval Summary Free Text/Dictation feels a lot better Exam/Review of Systems Vital Signs Vitals Vital Signs Date Time Temp Pulse Resp B/P Pulse Ox O2 Delivery O2 Flow Rate FiO2 07/30/17 11:57 98.0 70 20 157/92 98 07/29/17 20:25 Room Air Intake and Output 07/29/17 07/29/17 07/30/17 14:59 22:59 06:59 Intake Total 1338 ml Balance 1338 ml Exam nad no mrg lungs clear abd soft no rashes Cr 2s Results Result Diagram: 07/30/17 0633 07/30/17 0633 Results 24 hrs Laboratory Tests Test 07/29/17 12:55 07/29/17 13:15 07/30/17 06:33 White Blood Count 11.9 #H 12.4 H Red Blood Count 5.40 # 4.83 Hemoglobin 17.4 # 15.6 Hematocrit 48.8 # 44.1 Mean Corpuscular Volume 90.4 91.3 Mean Corpuscular Hemoglobin 32.2 32.3 Mean Corpuscular Hemoglobin Concent 35.7 35.4 Red Cell Distribution Width 12.7 12.5 Platelet Count 176 162 Mean Platelet Volume 9.8 10.1 Neutrophils % 83.6 H 76.1 Lymphocytes % 10.5 L 13.1 L Monocytes % 5.0 9.8 Eosinophils % 0.2 0.2 Basophils % 0.3 0.4 Nucleated Red Blood Cells % 0.0 0.0 Neutrophils # 9.9 H 9.5 H Lymphocytes # 1.2 1.6 Monocytes # 0.6 1.2 H Eosinophils # 0.0 0.0 Basophils # 0.0 0.1 Nucleated Red Blood Cells # 0.0 0.0 Sodium Level 146 H 142 Potassium Level 4.6 4.0 Chloride Level 104 107 Carbon Dioxide Level 29 24 Anion Gap 18 H 15 Blood Urea Nitrogen 16 26 H Creatinine 1.69 H 2.48 H Glucose Level 118 117 Calcium Level 10.7 H 9.4 Urine Color STRAW Urine Clarity CLEAR Urine pH 8.0 Urine Specific [place] 1.010 Urine Ketones NEGATIVE Urine Nitrite NEGATIVE Urine Bilirubin NEGATIVE Urine Urobilinogen NEGATIVE Urine Leukocyte Esterase NEGATIVE Urine Microscopic RBC 168 H Urine Microscopic WBC 18 H Urine Hemoglobin 3+ H Urine Glucose NEGATIVE Urine Total Protein 1+ H Magnesium Level 1.8 Total Bilirubin 1.6 H Direct Bilirubin 0.00 Indirect Bilirubin 1.6 H Aspartate Amino Transf (AST/SGOT) 29 Alanine Aminotransferase (ALT/SGPT) 37 Alkaline Phosphatase 74 Total Protein 6.7 Albumin 3.7 Medications Medications Current Medications Enoxaparin Sodium (Lovenox) 40 mg DAILY SC Last administered on 07/30/17 09: 03; Admin Dose 40 MG; Start 07/30/17 at 09:00 Carvedilol (Coreg) 25 mg BID PO Last administered on 07/30/17 09:01; Admin Dose 25 MG; Start 07/29/17 at 21:00 Nifedipine (Procardia Xl) 120 mg DAILY PO Last administered on 07/30/17 09:01 ; Admin Dose 120 MG; Start 07/30/17 at 09:00 Ondansetron HCl (Zofran Tab) 4 mg Q4H PRN PO nausea; Start 07/29/17 at 19:00 Ondansetron HCl (Zofran Tab) 8 mg Q4H PRN PO nausea Last administered on 00:21; Admin Dose 8 MG; Start 07/29/17 at 19:00 Tamsulosin HCl 0.4 mg 0.4 mg QHS PO Last administered on 07/29/17 21:35; Admin Dose 0.4 MG; Start 07/29/17 at 21:00 Sodium Chloride (NS) 1,000 ml @ 125 mls/hr Q8H IV Last administered on 11:46; Admin Dose 125 MLS/HR; Start 07/29/17 at 19:30 Aspirin (Aspirin) 81 mg DAILY PO Last administered on 07/30/17 09:01; Admin Dose 81 MG; Start 07/30/17 at 09:00 Atorvastatin Calcium (Lipitor) 80 mg QHS PO Last administered on 07/29/17 21: 34; Admin Dose 80 MG; Start 07/29/17 at 21:00 Influenza Virus Vaccine (Fluzone) 0.5 ml ONCE ONCE IM* ; Start 07/31/17 at 09: 00; Stop 07/31/17 at 09:01 CLAUDIO ISABEL MD Jul 30, 2017 12:14
--- NOTE | 2017-07-30 16:51 | RADRPT ---
PROCEDURE: XR Abdomen. CLINICAL INDICATION: Abdominal pain TECHNIQUE: Single AP view of the abdomen is available for review. COMPARISON: Correlation with CT from 07/29/2017. FINDINGS: The bowel gas pattern is normal. There is no evidence of obstruction. A 3 mm calcific density seen a t the level of for L5 on the right, consistent with the ureteral calculus seen on prior CT. No addit ional abnormal calcifications overlying the urinary tracts. Phleboliths are present in the pelvis. T he osseous structures are unremarkable. IMPRESSION: 3 mm calcific density seen at the level of L4-L5 on the right, possibly representing the ureteral ca lculus seen on prior CT. No evidence of additional ureteral calculi. RPTAT: JJ .Anthony Foster MD, Date Time Electronically viewed and signed by .Anthony Foster MD, on 07/30/2017 10:53 .A/
--- NOTE | 2017-07-30 16:56 | RADRPT ---
PROCEDURE: Renal US. CLINICAL INDICATION: Renal insufficiency TECHNIQUE: Multiple sonographic images of the kidneys were obtained. COMPARISON: 04/26/2014 FINDINGS: The kidneys are well visualized. The right kidney measures 11.6 cm. The left kidney measures 10.6 cm . Normal renal cortical echogenicity. 4 mm nonshadowing echogenic structure in the right kidney. No evidence of shadowing renal calculi. No hydronephrosis. Normal appearing partially distended urinar y bladder. IMPRESSION: 4 mm nonshadowing echogenic structure right kidney may represent a small stone. Otherwise normal appearance of the kidneys. No hydronephrosis. RPTAT:AAJJ Physician Beau Date Time Electronically viewed and signed by Physician Beau on 07/30/2017 16:19 /
[2017-07-30 18:09] LABS: ADD UMIC YES; UR ASCORBIC ACID NEGATIVE (NEGATIVE); UR BILIRUBIN (Dip) NEGATIVE (NEGATIVE); UR BLOOD (Dip) 2+ mg/dL (NEGATIVE); UR CLARITY CLEAR (CLEAR); UR COLOR STRAW (YELLOW); UR GLUCOSE (Dip) NEGATIVE (NEGATIVE); UR KETONES (Dip) NEGATIVE (NEGATIVE); UR LEUKOCYTE ESTERASE (Dip) NEGATIVE Leu/ul (NEGATIVE); UR MUCUS FEW /HPF (NONE SEEN); UR NITRITE (Dip) NEGATIVE (NEGATIVE); UR RBC 19 /HPF (0-5); UR TOTAL PROTEIN (Dip) NEGATIVE (NEGATIVE); UR UROBILINOGEN (Dip) NEGATIVE (NEGATIVE)
[2017-07-30] MEDS: ATORVASTATIN 80 MG TAB PO SCH (20:49)
[2017-07-30] MEDS: TAMSULOSIN (SR) 0.4 MG CAP PO SCH (20:50)
[2017-07-31 00:24] VITALS: BP 135/80; RESP 18
[2017-07-31 00:41] VITALS: BP 174/84; PULSE 80; RESP 18
[2017-07-31 02:00] VITALS: BP 133/76; RESP 19
[2017-07-31] MEDS: SOD CHLORIDE 0.9% 1,000 ML IV SCH (03:13)
[2017-07-31 06:09] LABS: CALCIUM 8.7 mg/dl (8.4-10.2); CREATININE 1.89 mg/dl (0.61-1.24)
[2017-07-31 07:33] VITALS: BP 151/80; RESP 20
[2017-07-31] MEDS: ASPIRIN 81 MG TAB PO SCH (08:53)
[2017-07-31] MEDS: NIFEdipine (XL) 60 MG TAB PO SCH (08:53)
--- NOTE | 2017-07-31 08:56 | CONS ---
Date/Time of Note Date/Time of Note DATE: 07/31/17 TIME: 08:51 Consult Date/Type/Reason Admit Date/Time Jul 29, 2017 at 15:20 Initial Consult Date 07/30/17 Type of Consultation: Urology Reason for Consultation Right ureteral stone Subjective Patient denies having any pain today and he is comfortable. No stone has been recovered from straining his urine yet Objective Vital Signs Date Time Temp Pulse Resp B/P Pulse Ox O2 Delivery O2 Flow Rate FiO2 07/31/17 07:33 98.0 81 20 151/80 95 07/29/17 20:25 Room Air Intake and Output 07/30/17 07/30/17 07/31/17 15:00 23:00 07:00 Intake Total 50 ml 950 ml 730 ml Output Total 1000 ml 350 ml Balance 50 ml -50 ml 380 ml Exam Patient is alert awake and denies having any pain. there is no flank tenderness and abdomen is soft Results/Medications Result Diagram: 07/30/17 0633 07/31/17 0441 Results 24 hrs Laboratory Tests Test 07/30/17 16:42 07/31/17 04:41 Urine Color STRAW Urine Clarity CLEAR Urine pH 5.0 Urine Specific [place] 1.010 Urine Ketones NEGATIVE Urine Nitrite NEGATIVE Urine Bilirubin NEGATIVE Urine Urobilinogen NEGATIVE Urine Leukocyte Esterase NEGATIVE Urine Microscopic RBC 19 H Urine Microscopic WBC 6 H Urine Mucus FEW A Urine Hemoglobin 2+ H Urine Osmolality 317 Urine Random Creatinine 94.49 Urine Random Sodium 34 Urine Random Urea Nitrogen 553 Urine Glucose NEGATIVE Urine Total Protein 15.0 H Sodium Level 143 Potassium Level 4.0 Chloride Level 110 Carbon Dioxide Level 22 Anion Gap 15 Blood Urea Nitrogen 29 H Creatinine 1.89 H Glucose Level 91 Calcium Level 8.7 Medications Current Medications Enoxaparin Sodium (Lovenox) 40 mg DAILY SC Last administered on 07/30/17 09: 03; Admin Dose 40 MG; Start 07/30/17 at 09:00 Carvedilol (Coreg) 25 mg BID PO Last administered on 07/30/17 20:50; Admin Dose 25 MG; Start 07/29/17 at 21:00 Nifedipine (Procardia Xl) 120 mg DAILY PO Last administered on 07/30/17 09:01 ; Admin Dose 120 MG; Start 07/30/17 at 09:00 Ondansetron HCl (Zofran Tab) 4 mg Q4H PRN PO nausea; Start 07/29/17 at 19:00 Ondansetron HCl (Zofran Tab) 8 mg Q4H PRN PO nausea Last administered on 00:21; Admin Dose 8 MG; Start 07/29/17 at 19:00 Tamsulosin HCl 0.4 mg 0.4 mg QHS PO Last administered on 07/30/17 20:50; Admin Dose 0.4 MG; Start 07/29/17 at 21:00 Sodium Chloride (NS) 1,000 ml @ 125 mls/hr Q8H IV Last administered on 03:13; Admin Dose 125 MLS/HR; Start 07/29/17 at 19:30 Aspirin (Aspirin) 81 mg DAILY PO Last administered on 07/30/17 09:01; Admin Dose 81 MG; Start 07/30/17 at 09:00 Atorvastatin Calcium (Lipitor) 80 mg QHS PO Last administered on 07/30/17 20: 49; Admin Dose 80 MG; Start 07/29/17 at 21:00 Influenza Virus Vaccine (Fluzone) 0.5 ml ONCE ONCE IM* ; Start 07/31/17 at 09: 00; Stop 07/31/17 at 09:01 Assessment/Plan Chief Complaint/Hosp Course 56-year-old male with history of hypertension and cerebrovascular accident with residual right upper and right lower extremity weakness presented to the hospital with right flank pain with nausea and vomiting. CT scan showed a 3.5 mm stone in the right ureter with hydronephrosis. Patient did have leukocytosis but his white count is normal today. He is comfortable today and there is no flank tenderness now. KUB today : the stone is not seen. He either passed it or the stone is not visible on this film. Plan: Continue tamsulosin, may put him on oral antibiotic, strain the urine for stones and and discharged him home and follow-up as an outpatient Problems: STEPHANIE SMALLS MD Jul 31, 2017 08:56
[2017-07-31] MEDS ORDERED: INFLUENZA VIRUS VACCINE 0.5 ML (DISPENSING) IM* ONE (09:00)
--- NOTE | 2017-07-31 09:01 | RADRPT ---
PROCEDURE: XR abdomen KUB. CLINICAL INDICATION: Abdominal pain TECHNIQUE: Single portable view of the chest was obtained COMPARISON: Yesterday FINDINGS: Previously demonstrated stone is not appreciated. Right pelvic phleboliths noted, stable. Ventral paloma wel gas pattern. No acute osseous abnormality IMPRESSION: Previously demonstrated stone is not appreciated this exam. RPTAT: KK Brett Fink Physician Date Time Electronically viewed and signed by Brett Fink Physician on 07/31/2017 09:01 [place]/
[2017-07-31] MEDS: ENOXAPARIN 40 MG/0.4 ML SYG SC SCH (09:03)
[2017-07-31 14:57] LABS: CALCIUM 9.2 mg/dl (8.4-10.2); CREATININE 1.65 mg/dl (0.61-1.24); POTASSIUM 4.1 mmol/L (3.5-5.1)
[2017-07-31] MEDS ORDERED: TAMS-14 PO ×2 (16:08→16:48)
[2017-07-31] MEDS ORDERED: CLON0.1T14 PO ×2 (16:08→16:48)
[2017-07-31] MEDS ORDERED: ASPI81TA3 PO ×2 (16:08→16:48)
[2017-07-31] MEDS ORDERED: ATOR80TA75 PO ×2 (16:08→16:48)
--- NOTE | 2017-07-31 16:10 | DS ---
Date/Time of Note Date/Time of Note DATE: 07/31/17 TIME: 16:09 Discharge Summary Admission/Discharge Info Admit Date/Time Jul 29, 2017 at 15:20 Discharge Date/Time Discharge Diagnosis Hypertensive urgency and acute kidney injury 2/2 obstructive uropathy from ureteral stone with spontaneous passage. Hx CVA (POA), HTN (POA) Patient Condition: Stable Consults urology Procedures Cr trend: 1.69 (12.13)-->2.48 (12.14)-->1.89 (12.15 AM)-->1.65 (12.15 PM) imaging 12.13 CT AP IMPRESSION: 1. MODERATE AMOUNT OF RIGHT PERINEPHRIC FLUID AND MILD TO MODERATE RIGHT-SIDED HYDRONEPHROSIS SECONDARY TO A 3.5 MM STONE WITHIN THE RIGHT MID URETER, CONSISTENT WITH OBSTRUCTIVE UROPATHY. 2. Diffuse colonic diverticulosis. No obstruction. The appendix is within limits. 3. Mild atherosclerotic disease of the aorta. 4. Fat-containing umbilical hernia. 5. Prostamegaly 12.14 abd XR IMPRESSION: 3 mm calcific density seen at the level of L4-L5 on the right, possibly representing the ureteral calculus seen on prior CT. No evidence of additional ureteral calculi. 12.14 ZAIRE IMPRESSION: 4 mm nonshadowing echogenic structure right kidney may represent a small stone. Otherwise normal appearance of the kidneys. No hydronephrosis. 12.15 abd xr IMPRESSION: Previously demonstrated stone is not appreciated this exam. 12.13: urine culture no growth Hx of Present Illness CC HTN urgency HPI 56 yo M with pmhx HTN, CVA 6 mos ago from HTN here with 1 day of abd pain. Denies fever, +chills. No chest pain or SOB. As I entered the room to examine the patient, he began profusely vomiting onto the floor. Vomited 3 times in total, no blood just gastric contents. No rashes, no numbness/tingling/ weakness. no dysuria or hematuria. no headache Reports adherence to his meds but per [facility] has never filled his rx's BP in ER markedly elevated Of note, [facility] dc meds list reviewed. Pt supposed to be on ccb, bb but also clonidine. also should be on statin and asa Hospital Course 56 yo M with pmhx HTN with resultant CVA presented with abd pain, hypertensive urgency, LISSY from obstructive uropathy from 3.5 mm R ureteral stone. Pt on Cardene drip for 5 hours with significant improvement in BP. Urology saw pt for ureteral stone. Pt was started on flomax. f/u abd imaging did not show stone which was consistent with spontaneous stone expulsion. Unfortunately stone was not captured so stone analysis could not be done. Pt advised to continue flomax , drink plenty of water, and follow up with . Urine without bacteria so no compelling indication for antibiotics. Clonidine on which pt's was discharged from rehab 6 mos ago after his stroke reinstated. pt should see his PCP within 1 week for another ChemP to see where Cr is at. Unclear if 1.6 is his new baseline for if he's still in renal recovery from LISSY PCP cc'ed on this dc summary Home Meds Active Scripts Clonidine Hcl* (Catapres*) 0.1 Mg Tablet, 0.1 MG PO Q8 for 30 Days, #90 TAB Prov:CLAUDIO ISABEL MD 07/31/17 Aspirin (Aspirin) 81 Mg Chew, 81 MG PO DAILY for 30 Days, #30 TAB Prov:CLAUDIO ISABEL MD 07/31/17 Atorvastatin* (Atorvastatin*) 80 Mg Tablet, 80 MG PO QHS for 30 Days, #30 TAB Prov:CLAUDIO ISABEL MD 07/31/17 Tamsulosin Hcl* (Flomax*) 0.4 Mg Cap.er.24h, 0.4 MG PO QHS for 30 Days, #30 CAP Prov:CLAUDIO ISABEL MD 07/31/17 Nifedipine (Afeditab CR) 60 Mg Tablet.sa, 120 MG PO DAILY for 30 Days Prov:JOSIE NAPIER MD 02/04/17 Reported Medications Carvedilol* (Carvedilol*) 25 Mg Tablet, 25 MG PO BID, #60 TAB 07/29/17 Discontinued Scripts Clonidine Hcl* (Catapres*) 0.1 Mg Tablet, 0.1 MG PO Q8 Y for ELEVATED BLOOD PRESSURE for 30 Days, TAB Prov:JOSIE NAPIER MD 02/04/17 Carvedilol* (Carvedilol*) 12.5 Mg Tablet, 12.5 MG PO BID for 30 Days, TAB Prov:JOSIE NAPIER MD 02/04/17 Atorvastatin* (Atorvastatin*) 80 Mg Tablet, 80 MG PO HS for 30 Days, TAB Prov:JOSIE NAPIER MD 02/04/17 Ipratropium-Albuterol (Ipratropium-Albuterol) 0.5-3 Mg/3 Ml Ampul.neb, 3 ML HHN Q4H RESP THERAPY Y for SHORTNESS OF BREATH for 30 Days Prov:JOSIE NAPIER MD 02/04/17 Magnesium Hydroxide* (Cobos' MOM*) 30 Ml Susp, 30 ML PO DAILY Y for CONSTIPATION for 30 Days Prov:JOSIE NAPIER MD 02/04/17 Docusate Sodium (Dok) 100 Mg Capsule, 100 MG PO Q12H Y for CONSTIPATION for 30 Days, CAP Prov:JOSIE NAPIER MD 02/04/17 Hydrocodone Bit-Acetaminophen (Hydrocodone Bit-APAP) 5-325MG Tablet, 1 TAB PO Q6H Y for MODERATE PAIN LEVEL 4-6 for 30 Days, TAB Prov:JOSIE NAPIER MD 02/04/17 Aspirin* (Aspirin* EC) 81 Mg Tablet.dr, 81 MG PO DAILY for 30 Days Prov:JOSIE NAPIER MD 02/04/17 Acetaminophen (MAPAP) 325 Mg Tablet, 650 MG PO Q6H Y for PAIN LEVEL 1-3 OR FEVER for 30 Days, TAB Prov:JOSIE NAPIER MD 02/04/17 Nitroglycerin* (Nitrostat*) 0.4 Mg Tab.subl, 1 TAB SL Q5M Y for ANGINA for 1 Day Prov:JOSIE NAPIER MD 02/04/17 Follow-up Plan PCP within 7 days for ChemP within 2-4 weeks Primary Care Provider PCP: Chay Jones Time spent on discharge: > 30 minutes Pending Labs Laboratory Tests Test 07/30/17 16:42 07/31/17 04:41 07/31/17 14:24 Urine Color STRAW (YELLOW) Urine Clarity CLEAR (CLEAR) Urine pH 5.0 (5.0-9.0) Urine Specific [place] 1.010 (1.003-1.030) Urine Ketones NEGATIVEmg/dL (NEGATIVE) Urine Nitrite NEGATIVEmg/dL (NEGATIVE) Urine Bilirubin NEGATIVEmg/dL (NEGATIVE) Urine Urobilinogen NEGATIVEmg/dL (NEGATIVE) Urine Leukocyte Esterase NEGATIVELeu/ul (NEGATIVE) Urine Microscopic RBC 19/HPF (0-5) Urine Microscopic WBC 6/HPF (0-5) Urine Mucus FEW/HPF (NONE SEEN) Urine Hemoglobin 2+mg/dL (NEGATIVE) Urine Osmolality 317mOsm/kg (250-1200) Urine Random Creatinine 94.49mg/dl (20-370) Urine Random Sodium 34mmol/L (30-90) Urine Random Urea Nitrogen 553mg/dl Urine Glucose NEGATIVEmg/dL (NEGATIVE) Urine Total Protein 15.0mg/dl (0.0-11.9) Sodium Level 143mmol/L (135-144) 142mmol/L (135-144) Potassium Level 4.0mmol/L (3.5-5.1) 4.1mmol/L (3.5-5.1) Chloride Level 110mmol/L (97-110) 105mmol/L (97-110) Carbon Dioxide Level 22mmol/L (21-31) 27mmol/L (21-31) Anion Gap 15 (8-16) 14 (8-16) Blood Urea Nitrogen 29mg/dl (7-20) 27mg/dl (7-20) Creatinine 1.89mg/dl (0.61-1.24) 1.65mg/dl (0.61-1.24) Glucose Level 91mg/dl (70-220) 107mg/dl (70-220) Calcium Level 8.7mg/dl (8.4-10.2) 9.2mg/dl (8.4-10.2) Copies To: CC: STEPHANIE SMALLS MD; CHAY JONES MD, ELLEN MD Jul 31, 2017 16:10
--- NOTE | 2017-07-31 16:27 | PDOCDIS ---
Discharge Instructions DIAGNOSIS Discharge Diagnosis Hypertensive urgency and acute kidney injury 2/2 obstructive uropathy from ureteral stone with spontaneous passage. Hx CVA (POA), HTN (POA) CONDITION Patient Condition: Stable HOME CARE INSTRUCTIONS: Special Diet: cardiac FOLLOW UP/APPOINTMENTS Follow-up Plan make sure you drink plenty of water to prevent further kidney stone formation Follow up with the urologist Dr Rod within 4 weeks to further discuss kidney stones Office Address [id number] [place] [id number] Office You need to see your regular physician, Dr Jones, within 1 week to have another chemistry profile done. Your kidney number is not yet normal but is getting better and we want to make sure it keeps getting better Address: [address] [place] [address] CLAUDIO ISABEL MD Jul 31, 2017 16:27
== END 2017-07-31 17:20 | disposition home or self-care (01) ==
LOC: E/R 09:42 → MS4 15:20 → MS1 07-31 00:23
PROVIDERS: ADMIT Family Medicine; ATTEND Family Medicine
DX: I16.0 Hypertensive urgency (principal); I10 Essential (primary) hypertension; N20.1 Calculus of ureter; Z79.82 Long term (current) use of aspirin; Z86.73 Personal history of transient ischemic attack (TIA), and cerebral infarction without residual deficits; E78.5 Hyperlipidemia, unspecified; Z23 Encounter for immunization
CPT/HCPCS: 74000; 74176; 76775; 80048; 80076; 81001; 81003; 82540; 83735; 83935; 84155; 84300; 85025; 87086; 90686; 96365; 96375; 96376; J0360; J0696; J1650; J2270; J2405; J7030; Z7500; Z7502; Z7610; 99217; G0378